=== PATIENT | male | born 1950 | race Caucasian/White ===

== ENCOUNTER → 2023-07-03 10:08 | Outpatient (REF) | payer MEDICARE, OTHER, SELFPAY ==
[2023-07-03 11:46] LABS: Hematocrit 46.6 % (39.0-52.0); Hemoglobin 15.5 g/dL (13.0-18.0); Mean Corp Hgb Conc. 33.3 g/dL (33.0-37.0); Mean Corpuscular Hgb 30.9 pg (27.0-31.0); Mean Corpuscular Volume 92.8 fL (80.0-94.0); Mean Platelet Volume 10.2 fL (7.4-10.4); Platelet Count 214 10^3/uL (130-400); Red Blood Cell Count 5.02 10^6/uL (4.70-6.10); Red Cell Dist. Width 13.2 % (11.5-14.5); White Blood Cell Count 8.4 10^3/uL (4.8-10.8)
[2023-07-03 12:01] LABS: ALT (SGPT) 53 U/L (0-50); AST (SGOT) 52 U/L (17-59); Albumin 3.8 g/dl (3.5-5.0); Alkaline Phosphatase 116 U/L (38-126); Blood Urea Nitrogen 13 mg/dl (9-20); Calcium 9.1 mg/dl (8.4-10.2); Carbon Dioxide 29 mmol/L (22-30); Chloride 103 mmol/L (98-107); Glucose 85 mg/dl (70-99); Potassium 4.2 mmol/L (3.5-5.1); Sodium 141 mmol/L (135-145); Total Bilirubin 0.6 mg/dl (0.2-1.3); Total Protein 6.8 g/dl (6.3-8.2); eGFR > 60.00
[2023-07-03 12:25] LABS: TSH 1.71 uIU/ml (0.47-4.68)
== END ==
LOC: OLABPATH 10:08
PROVIDERS: ATTENDING PHYSICIAN Internal Medicine
DX: R94.5 Abnormal results of liver function studies (principal); E03.9 Hypothyroidism, unspecified
CPT/HCPCS: 36415; 80053; 84443; 85027

== ENCOUNTER → 2023-07-24 13:50 | Outpatient (REF) | payer MEDICARE, OTHER, SELFPAY | LOC: HWRAD 13:50 | PROVIDERS: ATTENDING PHYSICIAN Internal Medicine | DX: J96.21 Acute and chronic respiratory failure with hypoxia (principal) | CPT/HCPCS: 71260; Q9967 ==

== ENCOUNTER 2023-07-26 08:41 | Inpatient (IN) | payer MEDICARE, OTHER, SELFPAY ==
[2023-07-25] VITALS (9 sets, daily range): BP systolic 107–169; BP diastolic 57–93; BMI 26.5; BMI 23.9
[2023-07-25 14:32] LABS: % Basophils 0.6 % (0-2); % Eosinophils 3.3 % (0-6); % Immature Granulocytes 0.3 % (0-0.5); % Lymphocytes 12.7 % (20.5-51.1); % Neutrophils 67.1 % (42.2-75.2); Absolute Eosinophils 0.2 10^3/uL (0-0.7); Absolute Lymphocytes 0.8 10^3/uL (1.2-3.4); Absolute Neutrophils 4.3 10^3/uL (1.4-6.5); Hematocrit 45.3 % (39.0-52.0); Hemoglobin 15.6 g/dL (13.0-18.0); Mean Corp Hgb Conc. 34.4 g/dL (33.0-37.0); Mean Corpuscular Hgb 31.3 pg (27.0-31.0); Mean Corpuscular Volume 90.8 fL (80.0-94.0); Mean Platelet Volume 9.4 fL (7.4-10.4); Nucleated Red Blood Cells % 0 % (-); Platelet Count 184 10^3/uL (130-400); Red Blood Cell Count 4.99 10^6/uL (4.70-6.10); Red Cell Dist. Width 13.3 % (11.5-14.5); White Blood Cell Count 6.4 10^3/uL (4.8-10.8)
[2023-07-25 14:42] LABS: Lactic Acid 1.6 mmol/L (0.7-2.0)
[2023-07-25 14:43] LABS: ALT (SGPT) 56 U/L (0-50); AST (SGOT) 54 U/L (17-59); Alkaline Phosphatase 106 U/L (38-126); Blood Urea Nitrogen 22 mg/dl (9-20); Calcium 9.2 mg/dl (8.4-10.2); Carbon Dioxide 28 mmol/L (22-30); Chloride 101 mmol/L (98-107); Estimated Creatinine Clearance 64 ml/min; Glucose 128 mg/dl (70-99); Potassium 4.2 mmol/L (3.5-5.1); Sodium 138 mmol/L (135-145); Total Bilirubin 0.8 mg/dl (0.2-1.3); eGFR > 60.00
[2023-07-25 14:54] LABS: COVID-19 Antigen Negative (Negative)
[2023-07-25] MEDS: DUONEB 3 ML INH ×3 (14:59→21:40)
[2023-07-25] MEDS: SOLU-MEDROL PF 60 MG IV (14:59)
--- NOTE | 2023-07-25 15:29 | ED.GENMED ---
History of Present Illness
General
Chief Complaint: Breathing Problem
Time Seen by Provider: 07/25/23 14:06
Travel History
Have you had any contact with someone who has COVID-19?: No
Do you have any symptoms of coronavirus? Fever > 100 degrees, chills, cough, shortness of breath, sore throat, loss of taste or smell, muscle aches, or headache?: No
History of Present Illness
History of Present Illness:
73 [facility] due to hypoxia. He has had a severe cough for the past several days, his primary physician at his facility ordered an outpatient CT of the chest with contrast yesterday which shows no acute disease. The patient was
noted to have saturations in the upper 80s prompting emergency department evaluation. He denies any chest pain or shortness of breath at rest. Arrives on 2 L nasal cannula. Denies any fevers or chills
Past History
Past History
ED Past Medical History: CAD, GERD, HTN, Hypercholesterolemia, [place], Renal failure, Hypothyroidism, Psychiatric (Patient states he has dementia) and Other (Dementia)
ED Past Surgical History: Bowel resection, Cardiac and Orthopedic
Social History
Tobacco: Former smoker
Alcohol: None
Drug: None
Personal:
Living: assisted living
Employment: Retired
Family History
Family History: Other (Noncontributory)
Review of Systems
Review of Systems
Allergies reviewed?: Yes
All Other Systems: ROS reviewed and negative except as documented in HPI and ROS
Phy Exam
Physical Exam
Physical Exam:
GEN: Well appearing, NAD, WDWN
Eyes: PERRLA, EOMs intact, no scleral icterus
HENT: NCAT, oral mucosa moist
Lungs:Normal respiratory effort. Prolonged expiratory phase with expiratory wheezes and rhonchi heard throughout
Cardiac: RRR, no M/R/G, no peripheral edema. Radial pulses 2+ bilat
Neuro: AO x 3
MSK: No gross deformity or ecchymosis.
Skin: No rashes, petechiae. Normal color, no pallor or jaundice.
Psych: Calm, cooperative, proper hygiene
Scores
Heart Failure Risk
Heart Failure Risk Score: Not Applicable
Course
Orders/Labs/Results
Orders:
Orders
07/25/23 14:05
Electrocardiogram (*1) Urgent
Reason for Study: Other
Other Reason for Exam: Possible Sepsis
Cardiac Monitoring- Treatment ONCE
IV Insert/Care/Rem.- Treatment PRN
O2 Therapy [RESP] Urgent
Titrate/Wean O2 to maintain O2 sat greater than (%): 93
Special Instructions: TO MAINTAIN CONTINUOUS O2 SATS > OR = 93%
Pulse Ox/cont/shift [RESP] Urgent
Quantity: 1
Special Instructions: CONTINUOUS
07/25/23 14:06
EKG- Treatment ONCE
CR Chest - 2 Views Urgent
Comment:
Reason For Exam: suspected infection
07/25/23 14:18
Complete Blood Count/With Diff Urgent
Comprehensive Metabolic Panel Urgent
Lactic Acid Q4H
Comment: ON ICE, CANCEL 2ND ORDER IF FIRST LACTIC ACID LEVEL <2
Blood Culture Q30M
RAINER Source: Blood/Venous
Specimen Description:
Comment: FROM 2 SEPARATE SITES
07/25/23 14:25
Ipratropium/Albuterol Sulfate [Duoneb] 3 ml .ROUTE .STK-MED ONE
07/25/23 14:28
COVID-19 Antigen Urgent
Source: Nasal Swab
Blood Culture Q30M
RAINER Source: Blood/Venous
Specimen Description:
Comment: FROM 2 SEPARATE SITES
07/25/23 14:51
Ipratropium/Albuterol Sulfate [Duoneb] 3 ml INH R NOW ONE
MethylPREDNISolone PF [Solu-Medrol Pf] 60 mg IV NOW STA
07/25/23 Dinner
Regular
At Your Request: Limited Participation
Does patient need a safe tray?: No
07/25/23 15:44
Ipratropium/Albuterol Sulfate [Duoneb] 3 ml INH R NOW ONE
07/25/23 16:23
Admit/Transfer Patient As Directed
Co-Sign Provider:
Level of Care: Observation services
Assign to:: Medical/Surgical
Physician / Group: laila
Diagnosis: copd exacerbation
Code Status As Directed
Resuscitation Status: Full Code
07/25/23 21:19
Acetaminophen [Tylenol] 650 mg PO Q4HPRN PRN
Guaifenesin [Mucinex] 600 mg PO Q12
Heparin 5,000 units SC Q12
Ipratropium/Albuterol Sulfate [Duoneb] 3 ml INH R Q4HPRN PRN
Ipratropium/Albuterol Sulfate [Duoneb] 3 ml INH R QID
Loperamide [Imodium] 4 mg PO Q6HPRN PRN
Mometasone [Elocon 0.1% Cream] 1 applic TOPICAL BIDPRN PRN
07/25/23 21:19
Activity As Directed
Activity Level: As Tolerated
Intake/ Output As Directed
Frequency: Per unit guidelines
Vital Signs As Directed
Frequency: Per unit guidelines
Copd Education [RESP] Routine
DX Deep Vein Thrombosis Video Routine
07/25/23 22:00
Atorvastatin [Lipitor] 80 mg PO HS
Donepezil HCl [Aricept] 10 mg PO HS
Quetiapine Fumarate [Seroquel] 100 mg PO HS
Trazodone [Desyrel] 50 mg PO HS
07/26/23 02:00
Dexamethasone Sod Phosphate [Decadron] 4 mg IV Q12H
07/26/23 06:00
Basic Metabolic Panel IN AM
Complete Blood Count/With Diff IN AM
Levothyroxine [Synthroid] 50 mcg PO DAILY @ 0600
07/26/23 08:00
Allopurinol [Zyloprim] 100 mg PO DAILY
Aspirin Chewable [Low Strength Aspirin] 81 mg PO DAILY
Escitalopram Oxalate [Lexapro] 20 mg PO DAILY
Lactobac/Bifidobac [Visbiome] 1 cap PO DAILY
Losartan [Cozaar] 50 mg PO DAILY
Pantoprazole [Protonix] 40 mg PO DAILY
Vitamin B Complex with C [B COMPLEX w/VITAMIN C] 2 caplet PO DAILY
Abnormal Lab Results
07/25/23
14:18
MCH 31.3 H pg
(27.0-31.0)
Absolute Lymphs (auto) 0.8 L 10^3/uL
(1.2-3.4)
Absolute Monos (auto) 1.0 H 10^3/uL
(0.1-0.6)
Lymphocytes % 12.7 L %
(20.5-51.1)
Monocytes % 16.0 H %
(1.7-9.3)
BUN 22 H mg/dl
(9-20)
Glucose 128 H mg/dl
(70-99)
ALT 56 H U/L
(0-50)
07/25/23 14:18
07/25/23 14:18
Vital Signs
Initial and Last Documented VS:
Initial Vital Signs
Temp Pulse Resp BP Pulse Ox
98.9 F 72 22 124/69 89
07/25/23 14:02 07/25/23 14:02 07/25/23 14:02 07/25/23 14:02 07/25/23 14:02
Last Documented Vital Signs
Temp Pulse Resp BP Pulse Ox
99.3 F 88 18 159/93 93
07/25/23 21:38 07/25/23 21:43 07/25/23 21:43 07/25/23 21:38 07/25/23 21:43
MDM/Problems Addressed
MDM/Problems Addressed:
Patient's hypoxia is likely multifactorial in the setting of asbestos related restrictive lung disease and potential underlying COPD given prior tobacco use. CT scan of the chest yesterday showed no acute cardiopulmonary disease, I was able to
review the studies and there does appear to be adequate opacification of the central pulmonary arteries suggesting PE is unlikely. Patient unfortunately remains hypoxic despite nebulizers and steroids. Will admit for further management, no
indication for antibiotic
Comment
Comment:
EKG independently interpreted by me shows normal sinus rhythm at a rate of [address] changes concerning for ischemia
*Critical Care Note
Total Time (30-74mins, 75-104mins- exclusive of procedures): Not Applicable
ED Attending Note
-
Portions of this chart may have been created with voice recognition software.� Occasional wrong word or��sound alike� substitutions may have occurred due to the inherent limitations of voice recognition software.
Discharge Plan
Departure
Patient Disposition: Admit
Date of Disposition: 07/25/23
Time of Disposition: 15:50
Presentation/result/management discussed w/ accepting MD/DO: Hospitalist
Discharge Problem:
Acute respiratory insufficiency, Wheezing
Interventions
Interventions:
*Risk Screen - Suicide Last Done: 07/25/23 14:37
*General Assessment Last Done: 07/25/23 14:37
*Neglect/Abuse Screening Last Done: 07/25/23 14:37
ED- Fall Risk Assessment Last Done: 07/25/23 14:38
*ED COVID-19 Vaccine History Last Done: 07/25/23 14:37
*Nursing Disposition Last Done: 07/25/23 21:14
ED- Cardiac Assessment Last Done: 07/25/23 14:37
ED- Pulmonary Assessment Last Done: 07/25/23 14:37
Discharge Date and Time
Discharge Date/Time: 07/25/23 21:15
--- NOTE | 2023-07-25 16:26 | HPS.HSE ---
Family Physician
-
Family Physician: Balwinder Kumari
Chief Complaint
-
shortness of breath, cough
History of Present Illness
73-year-old male with past medical history of CAD, hypertension, gout, hypothyroidism, GERD, dementia, hypercholesterolemia [facility]. Patient had increasing cough over the past day that he feels is
productive but unable to bring anything up. As per daughter he has had shortness of breath intermittently for the past year that sometimes occurs with exertion and associated with wheezing at times. Not much shortness of breath at rest. He denies
any shortness of breath when he lies flat although he does sleep with 2 pillows. He denies any fevers or chills. He denies any sore throat. He has chronic postnasal drip. He denies any lower extremity swelling.
His primary care physician ordered outpatient CT scan of the chest with contrast yesterday which showed no acute disease. Patient was noted to have oxygen saturations in the upper 80s so he was sent to the emergency room.
He had diarrhea yesterday but this is resolved.
He has a history of smoking more than 20 years ago. He denies alcohol use.
Medical History
Past Medical History
Past Medical History: Reports Other (CAD, hypertension, gout, hypothyroidism, GERD, dementia, hypercholesterolemia )
Past Surgical History: Reports None
Social History
Tobacco: Former Smoker
Alcohol: None
Drug: None
Family History
Family History: Not pertinent
Allergies / Home Medications
Allergies reflects when Allergies were last updated in [facility].
Home Medications with original date entered in [facility]
Allergy/Medication List:
Allergies
Allergy/AdvReac Type Severity Reaction Status Date / Time
No Known Allergies Allergy Verified 07/25/23 14:02
Home Medications
allopurinol 100 mg tablet 100 mg PO DAILY 07/20/13
losartan 50 mg tablet 50 mg PO DAILY 07/20/13
acetaminophen 325 mg tablet 650 mg PO Q4HPRN PRN mild pain/fever>100F 09/17/21
aspirin 81 mg chewable tablet 81 mg PO DAILY 09/17/21
donepezil 10 mg tablet 10 mg PO HS 09/17/21
quetiapine 100 mg tablet 100 mg PO HS 09/17/21
escitalopram oxalate 20 mg tablet (Lexapro) 20 mg PO DAILY 11/13/21
levothyroxine 50 mcg tablet (Synthroid) 50 mcg PO DAILY 11/13/21
trazodone 50 mg tablet 50 mg PO HS 11/13/21
Lactobac no.2-Bifidobac no.1-S. thermo 112.5 billion cell capsule (Visbiome) 1 cap PO DAILY 07/25/23
albuterol sulfate 90 mcg/actuation aerosol inhaler 2 puff inhalation R Q6HPRN PRN shortness of breath or wheezing 07/25/23
atorvastatin 80 mg tablet 80 mg PO HS 07/25/23
ceramides 1,3,6-II 1 applic topical BIDPRN PRN dryness 07/25/23
esomeprazole magnesium 20 mg capsule,delayed release 40 mg PO DAILY 07/25/23
eucalyptus-menthol oral mucosal lozenge 3.1 mg mucous membrane DAILYPRN PRN cough 07/25/23
loperamide 2 mg capsule 4 mg PO Q6HPRN PRN diarrhea 07/25/23
mometasone 0.1 % topical cream 1 applic topical BIDPRN PRN apply to psoriasis 07/25/23
vitamin B complex 2 cap PO DAILY 07/25/23
Review of Systems
-
History Source: Patient
A 12 point ROS was completed and negative except as noted: Yes
Constitutional: Reports No Symptoms
EENT: Reports No Symptoms
Respiratory: Reports See HPI
Cardiac: Reports No Symptoms
Abdomen/GI: Reports No Symptoms
: Reports No Symptoms
Musculoskeletal: Reports No Symptoms
Skin: Reports No Symptoms
Neurological: Reports No Symptoms
Endocrine: Reports No Symptoms
Hematologic/Lymphatic: Reports No Symptoms
Psych: Reports No Symptoms
Physical Exam
Vital Signs
Vital Signs
Temp Pulse Resp BP Pulse Ox
98.9 F 74 17 169/58 95
07/25/23 14:02 07/25/23 16:15 07/25/23 16:15 07/25/23 16:00 07/25/23 16:15
Physical Exam
General: Well Developed, Well Nourished and No Apparent Distress
HEENT: NormoCephalic, Moist mucous membranes and Atraumatic
Respiratory: Wheezes
Cardiac: S1/S2 and Regular Rhythm; No Murmur or Rub
GI: Soft, Non Tender, Non Distended and Normal Bowel Sounds; No Organomegaly
Rectal: Deferred by Provider
Musculoskeletal: No Clubbing, No Cyanosis and No Edema
Skin: No Rash
Neuro: Nonfocal/grossly intact
Laboratory Results
-
07/25/23 14:18
07/25/23 14:18
Laboratory Results
Lactic Acid Cancelled 07/25/23 18:15
Total Bilirubin 0.8 mg/dl (0.2-1.3) 07/25/23 14:18
AST 54 U/L (17-59) 07/25/23 14:18
ALT 56 U/L (0-50) H 07/25/23 14:18
Alkaline Phosphatase 106 U/L (38-126) 07/25/23 14:18
Data Reviewed
-
Lab Data: Labs Reviewed by me
Old Records: Reviewed
Impression/Plan
-
IMPRESSION:
PLAN:
# Likely undiagnosed COPD exacerbation
# Possible underlying asbestosis
-Significant bilateral wheezing
-Requiring 2 L
-Chest x-ray unremarkable
-CT chest from yesterday shows no acute findings, scattered calcified noncalcified pleural plaques which was reported asbestos exposure, small amount of chronic appearing scarring within the lingula/anterior left lower lobe
-COVID negative
-Blood cultures pending
-DuoNebs every 6 hours
-Dexamethasone 4 mg every 12
-Guaifenesin
-Outpatient pulmonary function testing
Coronary artery disease
-Continue aspirin
Essential hypertension
-Continue losartan
Gout
-Continue allopurinol
Hypothyroidism
-Continue levothyroxine
GERD
-Continue esomeprazole
Dementia/depression
-Continue donepezil
-Continue Lexapro, Seroquel
-Continue trazodone
Hypercholesterolemia
-Continue statin
Full code
DVT prophylaxis�heparin
Regular diet
--- NOTE | 2023-07-25 21:38 | PTCARENOTE ---
Pt arrived onto floor @2137. Pt has stable vital signs, and walked into room with assistance. Pt with no complaints of pain at this time. Pulse ox reads 93% on 2 L of O2. Pt oriented to room and call dowling; will continue to monitor.
[2023-07-25] MEDS: HEPARIN 5000 UNITS SC (22:30)
[2023-07-25] MEDS: MUCINEX 600 MG PO (22:31)
[2023-07-25] MEDS: ARICEPT 10 MG PO (22:31)
[2023-07-25] MEDS: LIPITOR 80 MG PO (22:31)
[2023-07-25] MEDS: DESYREL 50 MG PO (22:31)
[2023-07-25] MEDS: SEROQUEL 100 MG PO (22:31)
[2023-07-26] MEDS: DECADRON 4 MG IV ×2 (01:33→14:59)
[2023-07-26] MEDS: SYNTHROID 50 MCG PO (05:28)
[2023-07-26] MEDS: DUONEB 3 ML INH ×4 (07:20→19:34)
[2023-07-26 07:55] VITALS: BP 115/78
[2023-07-26 08:28] LABS: % Basophils 0.1 % (0-2); % Immature Granulocytes 1.2 % (0-0.5); % Lymphocytes 7.2 % (20.5-51.1); % Monocytes 3.8 % (1.7-9.3); % Neutrophils 87.7 % (42.2-75.2); Absolute Immature Granulocytes 0.1 10^3/uL (0-0.05); Absolute Lymphocytes 0.7 10^3/uL (1.2-3.4); Absolute Monocytes 0.4 10^3/uL (0.1-0.6); Absolute Neutrophils 8.1 10^3/uL (1.4-6.5); Hematocrit 44.5 % (39.0-52.0); Hemoglobin 14.9 g/dL (13.0-18.0); Mean Corp Hgb Conc. 33.5 g/dL (33.0-37.0); Mean Corpuscular Hgb 30.7 pg (27.0-31.0); Mean Corpuscular Volume 91.6 fL (80.0-94.0); Mean Platelet Volume 9.5 fL (7.4-10.4); Nucleated Red Blood Cells % 0 % (-); Platelet Count 174 10^3/uL (130-400); Red Blood Cell Count 4.86 10^6/uL (4.70-6.10); Red Cell Dist. Width 12.9 % (11.5-14.5); White Blood Cell Count 9.2 10^3/uL (4.8-10.8)
[2023-07-26 09:18] LABS: Blood Urea Nitrogen 18 mg/dl (9-20); Carbon Dioxide 26 mmol/L (22-30); Chloride 106 mmol/L (98-107); Estimated Creatinine Clearance 103 ml/min; Glucose 159 mg/dl (70-99); Sodium 139 mmol/L (135-145); eGFR > 60.00
[2023-07-26] MEDS: VISBIOME 1 CAP PO (10:05)
[2023-07-26] MEDS: PROTONIX 40 MG PO (10:05)
[2023-07-26] MEDS: LEXAPRO 20 MG PO (10:05)
[2023-07-26] MEDS: MUCINEX 600 MG PO ×2 (10:05→20:51)
[2023-07-26] MEDS: COZAAR 50 MG PO (10:05)
[2023-07-26] MEDS: ZYLOPRIM 100 MG PO (10:05)
[2023-07-26] MEDS: LOW STRENGTH ASPIRIN 81 MG PO (10:05)
[2023-07-26] MEDS: B COMPLEX w/VITAMIN C 2 CAPLET PO (10:05)
[2023-07-26] MEDS: HEPARIN 5000 UNITS SC ×2 (10:06→20:51)
--- NOTE | 2023-07-26 13:46 | W.PN.HOSP.TC ---
Today's Communication/Plan
-
Wean steroids
nebs
Wean O2
If stable will [facility] to [facility] tomorrow
Assessment / Plan
Assessment / Plan
Shortness of breath and cough
72-year-old male presented from [facility] facility secondary to hypoxia. CT of the chest done as outpatient did not show any acute changes but his saturations were in the 80s therefore he was sent over.
CT chest 07/24/2023-no acute findings. Scattered calcified and noncalcified pleural plaques bilaterally suspicious for asbestos exposure. Small amount of chronic appearing scarring in the lingula and the anterior left lower lobe. Coronary
calcifications.
CVS: S1-S2 normal
Chest: CTA B/L today, No wheezes.
Abdomen: Soft, NT / Bowel sounds present
Extremities: No edema, normal pulses
IT TECHNICAL SUPPORT SPECIALIST: Dementia
# Acute hypoxic respiratory insufficiency
Likely secondary to COPD exacerbation
Underlying asbestosis
COVID test negative
Blood cultures pending
Currently on 2 L of oxygen- wean off as tolerated.
Nebulizer treatments, Decadron, mucolytic's
Trop neg
# Coronary disease-continue aspirin, statin, losartan
# Essential hypertension-continue losartan
# Gout-Continue allopurinol
# Hypothyroidism-Continue levothyroxine
# GERD-Continue PPI
# Dementia/depression
Continue donepezil,Lexapro, Seroquel,Trazodone
# Hyperlipidemia-continue statin
# Diverticulosis
# History of hepatitis C
# Gout-allopurinol
# Ambulatory dysfunction
# Ex-smoker
# Full code
# DVT prophylaxis�heparin
D/.W RN
D/W Case management
D/W daughter at bed side
Anticipated Discharge: Within 24 hours
Subjective/Interval History
-
Date of Service: July 26, 2023
Objective Data
-
Labs:
Laboratory Results
07/26/23
07:56
WBC 9.2
Hgb 14.9
Hct 44.5
Plt Count 174
Sodium 139
Potassium 4.0
Chloride 106
Carbon Dioxide 26
BUN 18
Creatinine 0.6 L
Glucose 159 H
Calcium 9.0
Vital Signs:
Vital Signs
Temp Pulse Resp BP Pulse Ox
98.0 F 81 18 115/78 93
07/26/23 07:55 07/26/23 11:27 07/26/23 11:27 07/26/23 07:55 07/26/23 11:27
I&O
07/25/23 07/26/23 07/27/23
06:59 06:59 06:59
Intake Total 480 / 480
Balance 480 / 480
[2023-07-26 14:50] LABS: Troponin I < 0.012 ng/ml
[2023-07-26 15:03] VITALS: BP 118/60; PULSE 83; O2SAT 90
[2023-07-26 15:30] VITALS: BP 155/97
--- NOTE | 2023-07-26 16:11 | CM ---
Spoke via phone with patient's daughter, Mily Rodriguez # [phone]; initial assessment completed
Pharmacy verified: [facility], [address] [place] [address], [place] #[phone]
Per daughter patient lives in Assisted Living at [facility] since 09/2022; bathroom has only a toilet and sink. Patient has Dementia
PLOF: patient ambulates with a rolling walker; requires assistance with personal care; can toilet self; eats meals in the dining room. Receives PT/OT at facility
Ambulance transportation will need to be provided back to facility
SNF utilization in the past: yes
Plan: Return to NH @ [facility] [place] when medically stable
Per Attending, patient may be stable for discharge tomorrow, 07/26.
[2023-07-26] MEDS: MIRALAX 17 GRAMS PO (18:38)
[2023-07-26] MEDS: DESYREL 50 MG PO (20:51)
[2023-07-26] MEDS: COLACE 100 MG PO (20:51)
[2023-07-26] MEDS: ARICEPT 10 MG PO (20:51)
[2023-07-26] MEDS: LIPITOR 80 MG PO (20:51)
[2023-07-26] MEDS: SEROQUEL 100 MG PO (20:51)
[2023-07-26] MEDS: SENOKOT 17.1999999999999993 MG PO (20:51)
[2023-07-26 23:09] VITALS: BP 153/93
[2023-07-27] MEDS: DECADRON 2 MG IV ×2 (02:10→13:15)
[2023-07-27] MEDS: SYNTHROID 50 MCG PO (05:31)
[2023-07-27 07:50] VITALS: BP 141/80
[2023-07-27] MEDS: MIRALAX 17 GRAMS PO (07:58)
[2023-07-27] MEDS: MUCINEX 600 MG PO ×2 (07:58→19:53)
[2023-07-27] MEDS: SENOKOT 17.1999999999999993 MG PO ×2 (07:58→19:53)
[2023-07-27] MEDS: B COMPLEX w/VITAMIN C 2 CAPLET PO (07:58)
[2023-07-27] MEDS: LOW STRENGTH ASPIRIN 81 MG PO (07:58)
[2023-07-27] MEDS: COZAAR 50 MG PO (07:58)
[2023-07-27] MEDS: ZYLOPRIM 100 MG PO (07:58)
[2023-07-27] MEDS: LEXAPRO 20 MG PO (07:58)
[2023-07-27] MEDS: VISBIOME 1 CAP PO (07:58)
[2023-07-27] MEDS: COLACE 100 MG PO ×2 (07:59→19:53)
[2023-07-27] MEDS: PROTONIX 40 MG PO (07:59)
[2023-07-27] MEDS: HEPARIN 5000 UNITS SC ×2 (07:59→19:53)
[2023-07-27] MEDS: DUONEB 3 ML INH ×4 (08:14→19:38)
[2023-07-27 10:56] VITALS: BP 168/98; PULSE 93; O2SAT 94
--- NOTE | 2023-07-27 14:25 | CM ---
Per nursing patient for CXR, not keeping food down, coughing.
Spoke with [facility], if patient needs to come back with therapy, will need to be reviewed with nurse prior to return.
PT recommending HC, OT recommending skilled, speech (P).
Plan: back to [facility] when stable
Report# [phone]
--- NOTE | 2023-07-27 14:33 | W.PN.HOSP.TC ---
Today's Communication/Plan
-
Continue Decadron
CXR
Speech re eval.
Assessment / Plan
Assessment / Plan
Shortness of breath and cough
72-year-old male presented from senior living facility secondary to hypoxia. CT of the chest done as outpatient did not show any acute changes but his saturations were in the 80s therefore he was sent over.
CT chest 07/24/2023-no acute findings. Scattered calcified and noncalcified pleural plaques bilaterally suspicious for asbestos exposure. Small amount of chronic appearing scarring in the lingula and the anterior left lower lobe. Coronary
calcifications.
Difficulty eating. Able to drink. has been vomiting small amounts since dinner yesterday
CVS: S1-S2 normal
Chest: Coarse BS and Rhonchi today
Abdomen: Soft, NT / Bowel sounds present
Extremities: No edema, normal pulses
SKEIN YARN DRIER: Dementia
# Acute hypoxic respiratory insufficiency
Likely secondary to COPD exacerbation
Underlying asbestosis
COVID test negative
Blood cultures pending
Currently on 2 L of oxygen- wean as tolerated.
Nebulizer treatments, Decadron, mucolytic's
Trop neg
Speech to re evaluate
He is able to drink water with out any trouble.
Check CXR
# Coronary disease-continue aspirin, statin, losartan
# Essential hypertension-continue losartan
# Gout-Continue allopurinol
# Hypothyroidism-Continue levothyroxine
# GERD-Continue PPI
# Dementia/depression
Continue donepezil,Lexapro, Seroquel,Trazodone
# Hyperlipidemia-continue statin
# Diverticulosis
# History of hepatitis C
# Gout-allopurinol
# Ambulatory dysfunction
# Ex-smoker
# Full code
# DVT prophylaxis�heparin
D/.W RN
D/W Case management
Anticipated Discharge: 24 - 48 hours
Subjective/Interval History
-
Date of Service: July 27, 2023
Objective Data
-
Labs:
Laboratory Results
07/27/23
14:33
WBC Pending
Hgb Pending
Hct Pending
Plt Count Pending
Sodium Pending
Potassium Pending
Chloride Pending
Carbon Dioxide Pending
BUN Pending
Creatinine Pending
Glucose Pending
Calcium Pending
Vital Signs:
Vital Signs
Temp Pulse Resp BP Pulse Ox
97.9 F 93 16 141/80 94
07/27/23 07:50 07/27/23 10:50 07/27/23 10:50 07/27/23 07:50 07/27/23 10:50
I&O
07/26/23 07/27/23 07/28/23
06:59 06:59 06:59
Intake Total 480 / 480 860 / 860
Balance 480 / 480 860 / 860
[2023-07-27 15:05] LABS: Hematocrit 42.8 % (39.0-52.0); Hemoglobin 15.2 g/dL (13.0-18.0); Mean Corp Hgb Conc. 35.5 g/dL (33.0-37.0); Mean Corpuscular Hgb 31.4 pg (27.0-31.0); Mean Corpuscular Volume 88.4 fL (80.0-94.0); Mean Platelet Volume 9.7 fL (7.4-10.4); Platelet Count 201 10^3/uL (130-400); Red Blood Cell Count 4.84 10^6/uL (4.70-6.10); Red Cell Dist. Width 13.3 % (11.5-14.5); White Blood Cell Count 17.4 10^3/uL (4.8-10.8)
--- NOTE | 2023-07-27 15:14 | PTOTSP ---
Speech Language Pathology
Clinical Swallow Evaluation
73M admitted for SOB and cough 2/2 COPD exacerbation p/w a mildly impaired oropharyngeal swallow. No overt s/s of aspiration or penetration observed during speech CSE; however, RN notes productive cough post-PO. Aspiration risk is increased 2/2
multiple comorbidities including dementia, gout, hypothyroidism, and GERD.
Recommend:
1. Regular solids, thin liquids
2. Medications as tolerated
3. Aspiration and reflux precautions: small bites, slow rate, alternate bites and sips as needed, upright 30 minutes post meal
4. GREENSTONE POLISHER OPERATOR service to follow up and assess diet level tolerance, as well as provide dysphagia tx PRN
[2023-07-27 15:20] VITALS: BP 130/68
[2023-07-27 15:32] LABS: Blood Urea Nitrogen 26 mg/dl (9-20); Calcium 9.4 mg/dl (8.4-10.2); Carbon Dioxide 24 mmol/L (22-30); Chloride 104 mmol/L (98-107); Estimated Creatinine Clearance 103 ml/min; Glucose 122 mg/dl (70-99); Potassium 4.2 mmol/L (3.5-5.1); Sodium 139 mmol/L (135-145); eGFR > 60.00
[2023-07-27] MEDS: SEROQUEL 100 MG PO (21:02)
[2023-07-27] MEDS: ARICEPT 10 MG PO (21:02)
[2023-07-27] MEDS: DESYREL 50 MG PO (21:03)
[2023-07-27] MEDS: LIPITOR 80 MG PO (21:03)
[2023-07-27 23:12] VITALS: BP 121/72
[2023-07-28] MEDS: DECADRON 2 MG IV ×2 (01:19→13:59)
[2023-07-28] MEDS: SYNTHROID 50 MCG PO (05:35)
[2023-07-28 07:00] VITALS: BP 169/88
[2023-07-28] MEDS: DUONEB 3 ML INH ×4 (07:51→19:47)
[2023-07-28] MEDS: MIRALAX 17 GRAMS PO (07:56)
[2023-07-28] MEDS: SENOKOT 17.1999999999999993 MG PO (07:57)
[2023-07-28] MEDS: COLACE 100 MG PO (07:58)
[2023-07-28] MEDS: VISBIOME 1 CAP PO (07:58)
[2023-07-28] MEDS: B COMPLEX w/VITAMIN C 2 CAPLET PO (07:59)
[2023-07-28] MEDS: PROTONIX 40 MG PO (07:59)
[2023-07-28] MEDS: MUCINEX 600 MG PO ×2 (07:59→20:58)
[2023-07-28] MEDS: ZYLOPRIM 100 MG PO (08:01)
[2023-07-28] MEDS: LOW STRENGTH ASPIRIN 81 MG PO (08:01)
[2023-07-28] MEDS: COZAAR 50 MG PO (08:01)
[2023-07-28] MEDS: LEXAPRO 20 MG PO (08:01)
[2023-07-28] MEDS: HEPARIN 5000 UNITS SC ×2 (08:02→20:57)
--- NOTE | 2023-07-28 09:57 | PTCARENOTE ---
Assumed care of pt from previous nurse. Pt denies pain. Pt is on 3L's on sating 94%, pt with b/l crackles to lung bases, allison. Pt call dowling is within reach, pt does not ring lee. will cont to monitor.
--- NOTE | 2023-07-28 10:46 | W.PN.HOSP.TC ---
Today's Communication/Plan
-
wean O2 and steroids
follow WBC count
hopeful d/c in a few days
Assessment / Plan
Assessment / Plan
72-year-old male presented from longterm facility secondary to hypoxia. CT of the chest done as outpatient did not show any acute changes but his saturations were in the 80s therefore he was sent over. CT chest 07/24/2023-no acute findings.
Scattered calcified and noncalcified pleural plaques bilaterally suspicious for asbestos exposure. Small amount of chronic appearing scarring in the lingula and the anterior left lower lobe. Coronary calcifications. Difficulty eating. Able to
drink. has been vomiting small amounts since dinner yesterday
Acute hypoxic respiratory insufficiency--Likely secondary to COPD exacerbation--no signs of aspiration or pna by speech or imaging--underlying asbestosis--COVID test negative/cultures negative--on 3L O2--nebs, steroids (leukocytosis likely due to
steroids)
Coronary disease-continue aspirin, statin, losartan
Essential hypertension-continue losartan
Gout-Continue allopurinol
Hypothyroidism-Continue levothyroxine
GERD-Continue PPI
Dementia/depression--Continue donepezil,Lexapro, Seroquel,Trazodone
Hyperlipidemia-continue statin
Diverticulosis
History of hepatitis C
Ambulatory dysfunction
Full code
DVT prophylaxis�heparin
Anticipated Discharge: > 48 hours
Subjective/Interval History
-
Date of Service: July 28, 2023
pt says he is doing better--nursing reports pt coughing--resp increased O2
Objective Data
-
Vital Signs:
max temp for 24 hours
07/27/23
15:20
Temp 98.0 F
Vital Signs
Temp Pulse Resp BP Pulse Ox
97.7 F 64 16 169/88 94
07/28/23 07:00 07/28/23 08:01 07/28/23 07:55 07/28/23 08:01 07/28/23 07:55
I&O
07/27/23 07/28/23 07/29/23
06:59 06:59 06:59
Intake Total 860 / 860 120 / 120
Output Total 500 / 500
Balance 860 / 860 -380 / -380
Review of Systems
-
All other systems: Reviewed and negative
Physical Exam
-
General: Well Developed, Well Nourished and No Apparent Distress
HEENT: Normocephalic, Atraumatic and Oxygen
Respiratory: Wheezes (faint wheezes otherwise clear)
Cardiac: Regular Rhythm and S1/S2; Negative Murmur
GI: Soft, Nontender, Nondistended and Normal Bowel Sounds
Musculoskeletal: No Clubbing, No Cyanosis and No Edema
Neuro: Awake
Psych: Calm
--- NOTE | 2023-07-28 13:50 | PTOTSP ---
Speech Language Pathology
Swallow Follow Up
73M admitted for COPD exacerbation, seen for dysphagia follow-up this date, continues to p/w a mildly impaired oropharyngeal swallow. No new concerns w/ diet per RN report, pt appears to be tolerating a regular textured diet and thin liquids. Oral
phase consisting of slow, but functional mastication. Mild oral residue cleared with verbal cues for thin liquid wash. Takes large bites. Pharyngeal phase w/ no overt s/s of aspiration or penetration demonstrated. No new or current concerns for
aspiration or aspiration PNA. TANKER DRIVER service to sign off. Please reconsult if s/s concerning for aspiration or aspiration PNA arise (i.e. coughing with food or drink, abnormal CXR).
*Aspiration risk is increased 2/2 multiple comorbidities including COPD, dementia, gout, hypothyroidism, and GERD.
Recommend:
1. Regular solids, thin liquids
2. Medications as tolerated
3. Aspiration and reflux precautions: small bites, slow rate, alternate bites and sips as needed, upright 30 minutes post meal
4. TANKER DRIVER service to sign off. Please reconsult if s/s concerning for aspiration or aspiration PNA arise (i.e. coughing with food or drink, abnormal CXR).
[2023-07-28 15:00] VITALS: BP 134/65
[2023-07-28 19:51] VITALS: BP 160/72
[2023-07-28] MEDS: DESYREL 50 MG PO (20:58)
[2023-07-28] MEDS: SEROQUEL 100 MG PO (20:58)
[2023-07-28] MEDS: SENOKOT PO (20:58)
[2023-07-28] MEDS: COLACE PO (20:58)
[2023-07-28] MEDS: ARICEPT 10 MG PO (20:58)
[2023-07-28] MEDS: LIPITOR 80 MG PO (20:58)
[2023-07-28 23:00] VITALS: BP 147/81
[2023-07-29] MEDS: DECADRON 2 MG IV ×2 (01:42→13:05)
[2023-07-29] MEDS: SYNTHROID 50 MCG PO (05:00)
[2023-07-29] MEDS: DUONEB 3 ML INH ×4 (06:07→20:23)
[2023-07-29 07:15] VITALS: BP 145/74
[2023-07-29] MEDS: B COMPLEX w/VITAMIN C 2 CAPLET PO (08:30)
[2023-07-29] MEDS: MIRALAX 17 GRAMS PO (08:30)
[2023-07-29] MEDS: COLACE 100 MG PO ×2 (08:30→19:56)
[2023-07-29] MEDS: HEPARIN 5000 UNITS SC ×2 (08:30→19:56)
[2023-07-29] MEDS: PROTONIX 40 MG PO (08:31)
[2023-07-29] MEDS: SENOKOT 17.1999999999999993 MG PO ×2 (08:31→19:56)
[2023-07-29] MEDS: MUCINEX 600 MG PO ×2 (08:31→19:56)
[2023-07-29] MEDS: LEXAPRO 20 MG PO (08:31)
[2023-07-29] MEDS: VISBIOME 1 CAP PO (08:31)
[2023-07-29] MEDS: COZAAR 50 MG PO (08:31)
[2023-07-29] MEDS: LOW STRENGTH ASPIRIN 81 MG PO (08:31)
[2023-07-29] MEDS: ZYLOPRIM 100 MG PO (08:31)
--- NOTE | 2023-07-29 09:25 | PTCARENOTE ---
Addendum entered by Deloris Moreno RN 07/29/23 15:02:
07/28- Restraints removed at 1400 checks d/t no longer needing them. S/P administration of Haldol IV PRN, patient displays calmer cooperative behavior. He is still AAOX1 with incoherent conversation, but no apparent visual hallucinations or paranoia
at this time. Patient is calm, not combative. Able to move him into chair with OT. Patient is now on RA, POX=92%, HR=84 at rest. Will Continue to monitor.
Original Note:
07/28- Patient has Medsitter in room- he attempted to stand up without assistance, took O2 off, unsteady on feet. AAOX1, non-redirectable, paranoid, having visual hallucinations of scattered images and is confused. Attempted redirecting, calming
attitude first, but patient became physically combative, stating, 'get away from me! Get of here!' He attempted to punch this RN twice. PCT came in and helped assist patient back to bed, during which he attempted to kick both of us multiple times.
During this, patient is tachypneic, shallow breathing, will not keep O2 on; current POX=87%, HD=816. Obtained order for Non-violent restraints d/t physical combativeness and taking off O2. O3 reapplied, and secured restraints with neurovascular
checks [id number]. POX=94% on 2L O2; HR=92. Continue to monitor. See Restraints Intervention.
[2023-07-29 09:38] LABS: Hematocrit 45.6 % (39.0-52.0); Hemoglobin 15.2 g/dL (13.0-18.0); Mean Corp Hgb Conc. 33.3 g/dL (33.0-37.0); Mean Corpuscular Volume 92.9 fL (80.0-94.0); Platelet Count 203 10^3/uL (130-400); Red Blood Cell Count 4.91 10^6/uL (4.70-6.10); Red Cell Dist. Width 13.2 % (11.5-14.5)
[2023-07-29 10:14] LABS: ALT (SGPT) 73 U/L (0-50); AST (SGOT) 66 U/L (17-59); Albumin 3.9 g/dl (3.5-5.0); Alkaline Phosphatase 97 U/L (38-126); Blood Urea Nitrogen 23 mg/dl (9-20); Calcium 9.3 mg/dl (8.4-10.2); Carbon Dioxide 26 mmol/L (22-30); Chloride 102 mmol/L (98-107); Estimated Creatinine Clearance 88 ml/min; Glucose 100 mg/dl (70-99); Magnesium 2.4 mg/dl (1.6-2.3); Potassium 3.6 mmol/L (3.5-5.1); Sodium 139 mmol/L (135-145); Total Bilirubin 0.9 mg/dl (0.2-1.3); eGFR > 60.00
[2023-07-29] MEDS: HALDOL 1 MG IV (10:19)
[2023-07-29 14:38] VITALS: PULSE 70; O2SAT 96
[2023-07-29 15:00] VITALS: BP 136/89
--- NOTE | 2023-07-29 15:21 | W.PN.HOSP.TC ---
Today's Communication/Plan
-
Keep patient off of restraints and redirect
He is pleasant at this point
Will request psych Evaluation to adjust medicines
Hopefully changing steroids to p.o. will also help
Hopefully we can send him to rehab tomorrow
Assessment / Plan
Assessment / Plan
72-year-old male presented from senior care facility secondary to hypoxia. CT of the chest done as outpatient did not show any acute changes but his saturations were in the 80s therefore he was sent over. CT chest 07/24/2023-no acute findings.
Scattered calcified and noncalcified pleural plaques bilaterally suspicious for asbestos exposure. Small amount of chronic appearing scarring in the lingula and the anterior left lower lobe. Coronary calcifications. Difficulty eating. Able to
drink. has been vomiting small amounts since dinner yesterday
CVS: S1-S2 normal
Chest: CTA B/L
Abdomen: Soft, NT / Bowel sounds present
Extremities: No edema, normal pulses
HAND PACKAGER: Non focal exam , pleasant and cooperative
#Acute hypoxic respiratory insufficiency-Likely secondary to COPD exacerbation-no signs of aspiration or pneumonia by speech or imaging--underlying asbestosis--COVID test negative/cultures negative--on 3L O2--nebs, steroids (leukocytosis likely due
to steroids)
#Coronary disease-continue aspirin, statin, losartan
#Essential hypertension-continue losartan
#Gout-Continue allopurinol
#Hypothyroidism-Continue levothyroxine
#GERD-Continue PPI
#Dementia/depression--Continue donepezil,Lexapro, Seroquel,Trazodone
#Hyperlipidemia-continue statin
#Diverticulosis
#History of hepatitis C
#Ambulatory dysfunction
#Full code
#DVT prophylaxis�SC heparin
off restraints now
Pleasant.
Anticipated Discharge: Within 24 hours
Subjective/Interval History
-
Date of Service: July 29, 2023
Objective Data
-
Labs:
Laboratory Results
07/29/23
08:50
WBC 10.0
Hgb 15.2
Hct 45.6
Plt Count 203
Sodium 139
Potassium 3.6
Chloride 102
Carbon Dioxide 26
BUN 23 H
Creatinine 0.7
Glucose 100 H
Calcium 9.3
Total Bilirubin 0.9
AST 66 H
ALT 73 H
Alkaline Phosphatase 97
Vital Signs:
Vital Signs
Temp Pulse Resp BP Pulse Ox
97.6 F 70 16 145/74 94
07/29/23 07:15 07/29/23 11:20 07/29/23 11:20 07/29/23 07:15 07/29/23 11:20
I&O
07/28/23 07/29/23 07/30/23
06:59 06:59 06:59
Intake Total 120 / 120 480 / 480
Output Total 500 / 500 200 / 200
Balance -380 / -380 280 / 280
[2023-07-29] MEDS: LIPITOR 80 MG PO (19:57)
[2023-07-29] MEDS: SEROQUEL 100 MG PO (19:57)
[2023-07-29] MEDS: DESYREL 50 MG PO (19:57)
[2023-07-29] MEDS: ARICEPT 10 MG PO (19:58)
[2023-07-29 23:00] VITALS: BP 120/65
[2023-07-30] MEDS: SYNTHROID 50 MCG PO (05:42)
[2023-07-30] MEDS: DUONEB 3 ML INH ×4 (07:37→19:22)
[2023-07-30] MEDS: DELTASONE 40 MG PO (07:58)
[2023-07-30] MEDS: SENOKOT 17.1999999999999993 MG PO ×2 (07:58→19:43)
[2023-07-30] MEDS: COZAAR 50 MG PO (07:58)
[2023-07-30] MEDS: MUCINEX 600 MG PO ×2 (07:58→19:43)
[2023-07-30] MEDS: VISBIOME 1 CAP PO (07:58)
[2023-07-30] MEDS: MIRALAX 17 GRAMS PO (07:58)
[2023-07-30] MEDS: PROTONIX 40 MG PO (07:59)
[2023-07-30] MEDS: ZYLOPRIM 100 MG PO (07:59)
[2023-07-30] MEDS: LEXAPRO 20 MG PO (07:59)
[2023-07-30 08:00] VITALS: BP 159/77
[2023-07-30] MEDS: COLACE 100 MG PO ×2 (08:00→19:43)
[2023-07-30] MEDS: LOW STRENGTH ASPIRIN 81 MG PO (08:00)
[2023-07-30] MEDS: HEPARIN 5000 UNITS SC ×2 (08:00→19:43)
[2023-07-30] MEDS: B COMPLEX w/VITAMIN C 2 CAPLET PO (08:00)
[2023-07-30 09:50] LABS: ALT (SGPT) 142 U/L (0-50); AST (SGOT) 108 U/L (17-59); Alkaline Phosphatase 94 U/L (38-126); Blood Urea Nitrogen 29 mg/dl (9-20); Calcium 9.4 mg/dl (8.4-10.2); Carbon Dioxide 27 mmol/L (22-30); Chloride 102 mmol/L (98-107); Estimated Creatinine Clearance 88 ml/min; Glucose 75 mg/dl (70-99); Potassium 3.9 mmol/L (3.5-5.1); Sodium 139 mmol/L (135-145); Total Bilirubin 0.9 mg/dl (0.2-1.3); Total Protein 7.2 g/dl (6.3-8.2); eGFR > 60.00
--- NOTE | 2023-07-30 11:57 | W.PN.HOSP.TC ---
Today's Communication/Plan
-
Add on CPK
Hepatitis panel
[facility] can only do uss tomorrow as he ate late breakfast
LFTs in am
Wean off O2
Assessment / Plan
Assessment / Plan
72-year-old male presented from retirement facility secondary to hypoxia. CT of the chest done as outpatient did not show any acute changes but his saturations were in the 80s therefore he was sent over. CT chest 07/24/2023-no acute findings.
Scattered calcified and noncalcified pleural plaques bilaterally suspicious for asbestos exposure. Small amount of chronic appearing scarring in the lingula and the anterior left lower lobe. Coronary calcifications. Difficulty eating. Able to
drink. has been vomiting small amounts since dinner yesterday
CVS: S1-S2 normal
Chest: CTA B/L
Abdomen: Soft, No RUQ tenderness, Bowel sounds present
Extremities: No edema, normal pulses
CLOD PULLER: Non focal exam , pleasant and cooperative
# Elevated LFT-trending up. Check hepatitis panel. As below has a H/O Hep C per the chart but daughter is not sure if positive or what was done in the past.
Patient's daughter stated that he has had issues with LFTs up and down. And she also remembers that when he was at [facility] he had gallbladder ultrasound.
Will get a CPK level
USS abdomen
Rpt KFT in am
Hepatitis panel first
No RUQ tenderness
#Acute hypoxic respiratory insufficiency-Likely secondary to COPD exacerbation-no signs of aspiration or pneumonia by speech or imaging--underlying asbestosis--COVID test negative/cultures negative----nebs, steroids (leukocytosis likely due to
steroids)
Currently on 2 L of oxygen-wean off and check home oxygen evaluation
Steroids p.o. now.
#Coronary disease-continue aspirin, statin, losartan
#Essential hypertension-continue losartan
#Gout-Continue allopurinol
#Hypothyroidism-Continue levothyroxine
#GERD-Continue PPI
#Dementia/depression--Continue donepezil,Lexapro, Seroquel,Trazodone
#Hyperlipidemia-Hold statin
#Diverticulosis
#History of hepatitis C- Daughter doesn't know details
#Ambulatory dysfunction
#Full code
#DVT prophylaxis�SC heparin
Discussed with case management
Discussed with nursing
Discussed with patient's daughter on the phone in detail.
time over 50 min
Anticipated Discharge: Within 24 hours
Subjective/Interval History
-
Date of Service: July 30, 2023
Objective Data
-
Labs:
Laboratory Results
07/30/23
08:51
Sodium 139
Potassium 3.9
Chloride 102
Carbon Dioxide 27
BUN 29 H
Creatinine 0.7
Glucose 75
Calcium 9.4
Total Bilirubin 0.9
AST 108 H
ALT 142 H
Alkaline Phosphatase 94
Vital Signs:
Vital Signs
Temp Pulse Resp BP Pulse Ox
97.5 F 61 18 159/77 91
07/30/23 08:00 07/30/23 08:00 07/30/23 08:00 07/30/23 08:00 07/30/23 11:16
I&O
07/29/23 07/30/23 07/31/23
06:59 06:59 06:59
Intake Total 480 / 480 240 / 240
Output Total 200 / 200
Balance 280 / 280 240 / 240
[2023-07-30 12:23] LABS: Creatine Phosphokinase 190 U/L (55-170)
--- NOTE | 2023-07-30 13:42 | CS.PSYCHR ---
Consult Summary - Psychiatry
-
Pt is 73 yo male, brought from SNF with hypoxia, decrease O2 sat, admitted with COPD exacerbation. Pt has history of dementia, is prescribed Aricept, Seroquel, Lexapro, Trazodone. Psychiatry asked to evaluate due to agitation. Pt noted trying to
leave last night, paranoid, with apparent VH, trying to punch and kick staff. Today, pt seen resting in bed, in no distress, calm and cooperative, although not able to give any history due to dementia. Pt oriented to self only. Pt alert,
sensorium appears mostly intact. Pt noted with occasional jerks/twitches in legs and body. No dystonia evident. QTc 460 on admission, same range as one year ago.
PMH: CAD, hypertension, gout, hypothyroidism, GERD, hypercholesterolemia, COPD
Psych hx: none noted other than dementia; unable to obtain further info from pt. Meds: Aricept 10 mg HS, Seroquel 100 mg HS, Lexapro 20 mg QD, Trazodone 50 mg HS
MSE: alert, oriented to self, resting in bed, calm/no current agitation. No signs of psychosis. Affect/mood- neutral/stable. Insight poor
Imp: Dementia, with agitation
Rec: Could try Zyprexa po (Zydis) or IM prn for any further aggressive behavior. Would continue existing medications for now, consider tapering high dose of Lexapro, which can add to agitation
Would consider Neurology consult for jerky/twitching movements
Will follow
[2023-07-30 14:33] LABS: Hepatitis B Surface Antigen Negative (Negative)
[2023-07-30 14:50] LABS: Hepatitis C Antibody Reactive (Negative)
[2023-07-30 15:19] LABS: Hepatitis A Antibody, Total Negative (Negative)
--- NOTE | 2023-07-30 15:57 | CM ---
Faxed updated clinicals and therapy notes to [facility] at [phone]
Spoke with Karen (covering for Merry) [phone] from [facility] and they can accept patient back at current therapy level.
Patient currently on RA but [facility] can support oxygen needs.
Psychiatry consultation completed.
Plan: possible back to [facility] in am. Will need ambulance transport.
Plan: back to [facility] when stable
Report# [phone]
[2023-07-30 16:00] VITALS: BP 103/60
[2023-07-30 16:15] VITALS: PULSE 83; O2SAT 99
[2023-07-30 16:15] LABS: Hepatitis B Surface Antibody Indeterminate
[2023-07-30] MEDS: DESYREL 50 MG PO (19:44)
[2023-07-30] MEDS: ARICEPT 10 MG PO (19:44)
[2023-07-30] MEDS: SEROQUEL 100 MG PO (19:44)
[2023-07-30 23:30] VITALS: BP 119/74
[2023-07-31] MEDS: SYNTHROID 50 MCG PO (05:49)
[2023-07-31] MEDS: DUONEB 3 ML INH ×4 (07:33→19:22)
[2023-07-31 07:57] LABS: ALT (SGPT) 133 U/L (0-50); AST (SGOT) 86 U/L (17-59); Albumin 3.5 g/dl (3.5-5.0); Alkaline Phosphatase 94 U/L (38-126); Direct Bilirubin 0.4 mg/dl (0.0-0.4); Total Bilirubin 0.8 mg/dl (0.2-1.3); Total Protein 6.3 g/dl (6.3-8.2)
[2023-07-31 08:02] VITALS: BP 155/80
[2023-07-31] MEDS: COLACE 100 MG PO ×2 (08:35→20:57)
[2023-07-31] MEDS: LEXAPRO 20 MG PO (08:35)
[2023-07-31] MEDS: PROTONIX 40 MG PO (08:35)
[2023-07-31] MEDS: MIRALAX 17 GRAMS PO (08:35)
[2023-07-31] MEDS: B COMPLEX w/VITAMIN C 2 CAPLET PO (08:35)
[2023-07-31] MEDS: SENOKOT 17.1999999999999993 MG PO ×2 (08:35→20:57)
[2023-07-31] MEDS: DELTASONE 40 MG PO (08:36)
[2023-07-31] MEDS: LOW STRENGTH ASPIRIN 81 MG PO (08:36)
[2023-07-31] MEDS: MUCINEX 600 MG PO ×2 (08:36→20:57)
[2023-07-31] MEDS: VISBIOME 1 CAP PO (08:37)
[2023-07-31] MEDS: COZAAR 50 MG PO (08:37)
[2023-07-31] MEDS: ZYLOPRIM 100 MG PO (08:39)
[2023-07-31] MEDS: HEPARIN 5000 UNITS SC ×2 (08:39→20:57)
--- NOTE | 2023-07-31 08:40 | W.PN.HOSP.TC ---
Today's Communication/Plan
-
see A/P
Assessment / Plan
Assessment / Plan
HPI: 72-year-old male presented from shelter facility secondary to hypoxia.
CT of the chest done as outpatient 07/24/2023 did not show any acute changes but his saturations were in the 80s therefore he was sent over.
CT chest 07/24/2023:
no acute findings. Scattered calcified and noncalcified pleural plaques bilaterally suspicious for asbestos exposure. Small amount of chronic appearing scarring in the lingula and the anterior left lower lobe. Coronary calcifications. Difficulty
eating. Able to drink. has been vomiting small amounts since dinner yesterday
A/P:
# Acute hypoxic respiratory insufficiency, likely secondary to COPD exacerbation vs aspiration pneumonitis
Pt has been weaned off O2, now on RA
Check walking pulse Ox for home O2 requirement
COVID negative, blood cultures negative, MRSA screen neg
Cont nebs
Cont Prednisone 40 mg daily
# Elevated LFT, improving
hepatitis panel reviewed: noted positive hep C Ab, indeterminant hep Bs Ab (but negative surface Ag)- recc outpt GI eval for positivity of hep C Ab (pt has h/o hep C)
Follow Abd US report
Follow LFT
Hold statin
# Coronary disease
continue aspirin, statin, losartan
# Essential hypertension
continue losartan
# Gout
Continue allopurinol
# Hypothyroidism
Continue levothyroxine
# GERD
Continue PPI
# Dementia/depression
Continue donepezil, Lexapro, Seroquel, Trazodone
# Hyperlipidemia
Hold statin
# Diverticulosis
# History of hepatitis C
Daughter doesn't know details
# Ambulatory dysfunction
Full code
DVT prophylaxis�SC heparin
Called daughter to update, calls not answered
Anticipated Discharge: Within 24 hours
Subjective/Interval History
-
Date of Service: July 31, 2023
Objective Data
-
Labs:
Laboratory Results
07/31/23
06:17
Total Bilirubin 0.8
AST 86 H
ALT 133 H
Alkaline Phosphatase 94
Vital Signs:
Vital Signs
Temp Pulse Resp BP Pulse Ox
36.3 C 58 29 155/80 95
07/31/23 08:02 07/31/23 08:02 07/31/23 08:02 07/31/23 08:02 07/31/23 08:02
I&O
07/30/23 07/31/23 08/01/23
06:59 06:59 06:59
Intake Total 240 / 240 480 / 480
Output Total 200 / 200
Balance 240 / 240 280 / 280
Review of Systems
-
Unable to obtain full review of systems at this time due to: Other (sleeping)
Physical Exam
-
General: Well Developed, Well Nourished, No Apparent Distress and Comfortable; Negative Respiratory Distress
HEENT: Normocephalic and Atraumatic; Negative Oxygen
Respiratory: Clear to Auscultation and Non Labored Respirations; Negative Accessory Resp Muscle Use
Cardiac: Regular Rhythm and S1/S2; Negative Murmur
GI: Soft, Nontender, Nondistended and Normal Bowel Sounds
Musculoskeletal: No Clubbing, No Cyanosis and No Edema
Psych: Calm
Data Reviewed
-
Labs: Labs Reviewed by me
--- NOTE | 2023-07-31 12:20 | CM ---
Addendum entered by Yessi Acevedo 07/31/23 14:08:
Updated Karen from [facility] re off medsitter and medication adjustments.
Please update tomorrow if patient ready for d/c.
Original Note:
Patient from [facility].
Discussed with Karen (covering for Merry) on 07/30/23, p#[phone] from [facility] and they can accept patient back at current therapy level. will need to update prior to transfer.
Patient off medsitter this am. Per nursing calm.
Plan: back to [facility] when medically stable. Will need ambulance transport.
Plan: back to [facility] when stable
Report# [phone]
--- NOTE | 2023-07-31 12:43 | W.PN.UPDATE ---
Update Note
Progress Note Update
patient seen chart reviewed. discussed with nursing. mr wang is almost sedated this am . it is possible that whatever was causing his delirium is resolved (hypoxia.....iv steroids etc). i have some concern with use of aricept lexapro and
seroquel all of which have the potential to prolong qtc. his qtc was 461 now 473. he did talk to me to a limited extent. he said he is NOT depressed although he did appear somewhat withdrawn. not clear to me whether this is a part of being a little
sedated. will cut back lexapro to 10 mg. i don't think this will have a deleterious effect. would monitor qtc. consider whether hs dosage of seroquel can be decreased. i cut back hs trazodone to 25 mg. not clear if he needs both seroquel and
trazodone at hs. will check in w him tomorrow. i understand he may be dc tomorrow. anette shirley has been dc'ed
[2023-07-31 14:10] VITALS: BP 133/75; PULSE 74; O2SAT 90
[2023-07-31 14:12] VITALS: BP 133/75; PULSE 74; O2SAT 96
[2023-07-31 15:00] VITALS: BP 133/70
--- NOTE | 2023-07-31 16:49 | PTCARENOTE ---
07/30- Patient's daughter called this RN into room for multiple episodes of choking on his dinner. She states Pt has a hx of Esophageal Stenosis, and this has intermittently happened in the past. Attempted a Swallow Screen with water. Patient
immediately choked on the water upon swallowing it, and spit it back up. Lungs Coarse BL, but Pt able to take in full breaths without accessory muscle use. Cap refill<2sec. POX=92% on 2L, HR=89. Discussed pureed foods, taking small slow bites of
pureed food. Patient verbalized understanding. Notified Physician. Consulted Speech Therapy.
[2023-07-31] MEDS: ARICEPT 10 MG PO (21:00)
[2023-07-31] MEDS: SEROQUEL 100 MG PO (21:00)
[2023-07-31] MEDS: DESYREL 25 MG PO (21:01)
[2023-07-31 23:15] VITALS: BP 125/64
[2023-08-01] MEDS: SYNTHROID 50 MCG PO (06:25)
[2023-08-01 07:41] LABS: Hematocrit 44.7 % (39.0-52.0); Mean Corp Hgb Conc. 33.6 g/dL (33.0-37.0); Mean Corpuscular Hgb 30.9 pg (27.0-31.0); Mean Corpuscular Volume 92.2 fL (80.0-94.0); Mean Platelet Volume 9.1 fL (7.4-10.4); Platelet Count 197 10^3/uL (130-400); Red Blood Cell Count 4.85 10^6/uL (4.70-6.10); Red Cell Dist. Width 13.2 % (11.5-14.5)
[2023-08-01 07:50] VITALS: BP 128/69
[2023-08-01 08:16] LABS: ALT (SGPT) 166 U/L (0-50); AST (SGOT) 92 U/L (17-59); Albumin 3.5 g/dl (3.5-5.0); Alkaline Phosphatase 82 U/L (38-126); Blood Urea Nitrogen 33 mg/dl (9-20); Carbon Dioxide 26 mmol/L (22-30); Chloride 105 mmol/L (98-107); Estimated Creatinine Clearance 69 ml/min; Glucose 86 mg/dl (70-99); Potassium 3.8 mmol/L (3.5-5.1); Sodium 139 mmol/L (135-145); Total Protein 6.2 g/dl (6.3-8.2); eGFR > 60.00
[2023-08-01] MEDS: DUONEB 3 ML INH ×4 (08:21→20:43)
--- NOTE | 2023-08-01 10:06 | W.PN.HOSP.TC ---
Today's Communication/Plan
-
see A/P
Assessment / Plan
Assessment / Plan
HPI: 72-year-old male presented from long-term facility secondary to hypoxia.
CT of the chest done as outpatient 07/24/2023 did not show any acute changes but his saturations were in the 80s therefore he was sent over.
CT chest 07/24/2023:
no acute findings. Scattered calcified and noncalcified pleural plaques bilaterally suspicious for asbestos exposure. Small amount of chronic appearing scarring in the lingula and the anterior left lower lobe. Coronary calcifications. Difficulty
eating. Able to drink. has been vomiting small amounts since dinner yesterday
A/P:
# Acute hypoxic respiratory insufficiency, likely secondary to COPD exacerbation vs aspiration pneumonitis
He has been on and off O2 support
Check repeat walking pulse Ox for home O2 requirement today
COVID negative, blood cultures negative, MRSA screen neg
Cont nebs
Cont Prednisone 40 mg daily
# Elevated LFT, somewhat improving
hepatitis panel reviewed: noted positive hep C Ab, indeterminant hep Bs Ab (but negative surface Ag)- recc outpt GI eval for positivity of hep C Ab (pt has h/o hep C)
Abd US report noted small liver with diffusely coarse in echotexture suggesting possible cirrhosis.
LFT remain elevated but largely stable
Hold statin
Recc GI eval outpatient
# Coronary disease
continue aspirin, losartan
# Essential hypertension
continue losartan
# Gout
Continue allopurinol
# Hypothyroidism
Continue levothyroxine
# GERD
Continue PPI
# Dementia/depression
Continue donepezil, Lexapro, Seroquel, Trazodone
# Hyperlipidemia
Hold statin
# Diverticulosis
# History of hepatitis C
Daughter doesn't know details
# Ambulatory dysfunction
Full code
DVT prophylaxis�SC heparin
updated daughter on the phone
total time spent 51 min
Anticipated Discharge: Within 24 hours
Subjective/Interval History
-
Date of Service: August 01, 2023
Objective Data
-
Labs:
Laboratory Results
08/01/23
07:29
WBC 10.0
Hgb 15.0
Hct 44.7
Plt Count 197
Sodium 139
Potassium 3.8
Chloride 105
Carbon Dioxide 26
BUN 33 H
Creatinine 0.9
Glucose 86
Calcium 9.0
Total Bilirubin 1.0
AST 92 H
ALT 166 H
Alkaline Phosphatase 82
Vital Signs:
Vital Signs
Temp Pulse Resp BP Pulse Ox
36.4 C 82 16 128/69 95
08/01/23 07:50 08/01/23 08:24 08/01/23 08:24 08/01/23 07:50 08/01/23 08:24
I&O
07/31/23 08/01/23 08/02/23
06:59 06:59 06:59
Intake Total 480 / 480 480 / 480
Output Total 200 / 200
Balance 280 / 280 480 / 480
Review of Systems
-
Unable to obtain full review of systems at this time due to: Dementia
Physical Exam
-
General: Well Developed, Well Nourished, No Apparent Distress and Comfortable; Negative Respiratory Distress
HEENT: Normocephalic, Atraumatic and Oxygen (2L NC)
Respiratory: Clear to Auscultation and Non Labored Respirations; Negative Accessory Resp Muscle Use
Cardiac: Regular Rhythm and S1/S2; Negative Murmur
GI: Soft, Nontender, Nondistended and Normal Bowel Sounds
Musculoskeletal: No Clubbing, No Cyanosis and No Edema
Neuro: Awake
Psych: Calm and Apparent Dementia
Data Reviewed
-
Labs: Labs Reviewed by me
[2023-08-01 10:43] VITALS: O2SAT 83; O2SAT 88
[2023-08-01] MEDS: MIRALAX 17 GRAMS PO (11:36)
[2023-08-01] MEDS: B COMPLEX w/VITAMIN C 2 CAPLET PO (11:37)
[2023-08-01] MEDS: LOW STRENGTH ASPIRIN 81 MG PO (11:37)
[2023-08-01] MEDS: PROTONIX 40 MG PO (11:38)
[2023-08-01] MEDS: VISBIOME 1 CAP PO (11:38)
[2023-08-01] MEDS: DELTASONE 40 MG PO (11:38)
[2023-08-01] MEDS: COLACE 100 MG PO ×2 (11:38→20:55)
[2023-08-01] MEDS: MUCINEX 600 MG PO ×2 (11:38→20:55)
[2023-08-01] MEDS: HEPARIN 5000 UNITS SC ×2 (11:39→21:01)
[2023-08-01] MEDS: SENOKOT 17.1999999999999993 MG PO ×2 (11:39→20:55)
[2023-08-01] MEDS: ZYLOPRIM 100 MG PO (11:44)
[2023-08-01] MEDS: COZAAR 50 MG PO (11:44)
[2023-08-01] MEDS: LEXAPRO 10 MG PO (11:45)
--- NOTE | 2023-08-01 13:00 | W.PN.UPDATE ---
Update Note
Progress Note Update
patient seen chart reviewed. patient seemed to me to be less sedated than he was yesterday perhaps with the decrease in trazodone. . he does remain confused. he offered no complaints. he is not in any pain. he did tell me he had been cold but got a
blanket. spoke with nursing. no problems. no need for prn's and patient is off med sitter. cm reported in her note that he is accepted for [facility]. going forward need to keep an eye on qtc as he is on seroquel lexapro and aricept. psych will
sign off.
[2023-08-01 14:40] VITALS: BP 113/62; PULSE 75; O2SAT 92
[2023-08-01 15:44] VITALS: BP 106/52
[2023-08-01] MEDS: DESYREL 25 MG PO (20:59)
[2023-08-01] MEDS: ARICEPT 10 MG PO (20:59)
[2023-08-01] MEDS: SEROQUEL 100 MG PO (20:59)
[2023-08-01 23:00] VITALS: BP 108/60
[2023-08-02] MEDS: SYNTHROID 50 MCG PO (05:37)
[2023-08-02 07:30] VITALS: BP 143/73
[2023-08-02 07:47] LABS: Hematocrit 43.6 % (39.0-52.0); Hemoglobin 15.1 g/dL (13.0-18.0); Mean Corp Hgb Conc. 34.6 g/dL (33.0-37.0); Mean Corpuscular Hgb 30.7 pg (27.0-31.0); Mean Corpuscular Volume 88.6 fL (80.0-94.0); Mean Platelet Volume 9.3 fL (7.4-10.4); Platelet Count 221 10^3/uL (130-400); Red Blood Cell Count 4.92 10^6/uL (4.70-6.10); Red Cell Dist. Width 13.2 % (11.5-14.5); White Blood Cell Count 12.2 10^3/uL (4.8-10.8)
[2023-08-02] MEDS: DUONEB 3 ML INH (08:13)
[2023-08-02 08:27] LABS: AST (SGOT) 92 U/L (17-59); Albumin 3.6 g/dl (3.5-5.0); Blood Urea Nitrogen 28 mg/dl (9-20); Calcium 9.3 mg/dl (8.4-10.2); Carbon Dioxide 23 mmol/L (22-30); Estimated Creatinine Clearance 88 ml/min; Glucose 98 mg/dl (70-99); Potassium 4.5 mmol/L (3.5-5.1); Total Protein 6.4 g/dl (6.3-8.2); eGFR > 60.00
[2023-08-02 08:45] LABS: ALT (SGPT) 181 U/L (0-50); Alkaline Phosphatase 82 U/L (38-126); Chloride 106 mmol/L (98-107); Sodium 137 mmol/L (135-145)
--- NOTE | 2023-08-02 09:09 | W.PN.HOSP.TC ---
Addendum entered and electronically signed by Janine Crawley MD 08/02/23 13:27:
total DC time 36 min
Original Note:
Today's Communication/Plan
-
see AP
Assessment / Plan
Assessment / Plan
HPI: 72-year-old male presented from long-term facility secondary to hypoxia.
CT of the chest done as outpatient 07/24/2023 did not show any acute changes but his saturations were in the 80s therefore he was sent over.
CT chest 07/24/2023:
no acute findings. Scattered calcified and noncalcified pleural plaques bilaterally suspicious for asbestos exposure. Small amount of chronic appearing scarring in the lingula and the anterior left lower lobe. Coronary calcifications. Difficulty
eating. Able to drink. has been vomiting small amounts since dinner yesterday
A/P:
# Acute hypoxic respiratory insufficiency, likely secondary to COPD exacerbation vs aspiration pneumonitis
He has been on and off O2 support
walking pulse Ox noted need for home O2: 88% on RA at rest, 83% with ambulation on RA, 92% on 2L NC with ambulation
COVID negative, blood cultures negative, MRSA screen neg
Cont nebs
Cont Prednisone 40 mg daily with taper outpt
# Elevated LFT, somewhat improving
hepatitis panel reviewed: noted positive hep C Ab, indeterminant hep Bs Ab (but negative surface Ag)- recc outpt GI eval for positivity of hep C Ab (pt has h/o hep C)
Abd US report noted small liver with diffusely coarse in echotexture suggesting possible cirrhosis.
daughter informed about positive hep C Ab and Abd US report, and informed about outpt GI eval.
LFT remain elevated but largely stable , follow LFT outpt with result to PCP
Cont to hold statin
Recc GI eval outpatient
# Coronary disease
continue aspirin, losartan
# Essential hypertension
continue losartan
# Gout
Continue allopurinol
# Hypothyroidism
Continue levothyroxine
# GERD
Continue PPI
# Dementia/depression
Continue donepezil, Lexapro, Seroquel, Trazodone
# Hyperlipidemia
Hold statin
# Diverticulosis
# History of hepatitis C
Daughter doesn't know details
# Ambulatory dysfunction
Full code
DVT prophylaxis�SC heparin
DW CM
updated daughter on the phone
Anticipated Discharge: Today
Subjective/Interval History
-
Date of Service: August 02, 2023
Objective Data
-
Labs:
Laboratory Results
08/02/23
07:35
WBC 12.2 H
Hgb 15.1
Hct 43.6
Plt Count 221
Sodium 137
Potassium 4.5
Chloride 106
Carbon Dioxide 23
BUN 28 H
Creatinine 0.7
Glucose 98
Calcium 9.3
Total Bilirubin 1.0
AST 92 H
ALT 181 H
Alkaline Phosphatase 82
Vital Signs:
Vital Signs
Temp Pulse Resp BP Pulse Ox
36.3 C 68 16 143/73 93
08/02/23 07:30 08/02/23 08:15 08/02/23 08:15 08/02/23 07:30 08/02/23 08:15
I&O
08/01/23 08/02/23 08/03/23
06:59 06:59 06:59
Intake Total 480 / 480 720 / 720
Output Total 575 / 575
Balance 480 / 480 145 / 145
Review of Systems
-
Unable to obtain full review of systems at this time due to: Dementia
Physical Exam
-
General: Well Developed, Well Nourished, No Apparent Distress and Comfortable; Negative Respiratory Distress
HEENT: Normocephalic, Atraumatic and Oxygen (2L NC)
Respiratory: Clear to Auscultation and Non Labored Respirations; Negative Accessory Resp Muscle Use
Cardiac: Regular Rhythm and S1/S2; Negative Murmur
GI: Soft, Nontender, Nondistended and Normal Bowel Sounds
Musculoskeletal: No Clubbing, No Cyanosis and No Edema
Neuro: Awake
Psych: Calm and Apparent Dementia
Data Reviewed
-
Diagnostic Radiology: Image personally visualized and interpreted and Report Reviewed by me
Labs: Labs Reviewed by me
--- NOTE | 2023-08-02 09:28 | CM ---
Addendum entered by Yessi Acevedo 08/02/23 12:57:
Faxed updated clinicals, PT and resp notes to [facility].
Addendum entered by Yessi Acevedo 08/02/23 10:48:
Per Jeannette/[employer] oxygen should arrive before 3 pm.
IMM reviewed with daughter via phone. Updated re transport time 3 pm.
Original Note:
Spoke with Merry from the [facility], they are able to take back on oxygen.
No preference to oxygen company.
Referral placed with [employer].
Plan: back to [facility] when medically stable. Will need ambulance transport.
[facility]
Report# [phone]
[facility]
[2023-08-02 10:10] LABS: Procalcitonin < 0.05 ng/ml (0.0-0.25)
[2023-08-02] MEDS: SENOKOT 17.1999999999999993 MG PO (10:11)
[2023-08-02] MEDS: VISBIOME 1 CAP PO (10:12)
[2023-08-02] MEDS: LEXAPRO 10 MG PO (10:12)
[2023-08-02] MEDS: LOW STRENGTH ASPIRIN 81 MG PO (10:12)
[2023-08-02] MEDS: MUCINEX 600 MG PO (10:12)
[2023-08-02] MEDS: MIRALAX 17 GRAMS PO (10:13)
[2023-08-02] MEDS: ZYLOPRIM 100 MG PO (10:13)
[2023-08-02] MEDS: DELTASONE 40 MG PO (10:24)
[2023-08-02] MEDS: B COMPLEX w/VITAMIN C 2 CAPLET PO (10:25)
[2023-08-02] MEDS: PROTONIX 40 MG PO (10:25)
[2023-08-02] MEDS: HEPARIN 5000 UNITS SC (10:25)
[2023-08-02] MEDS: COLACE 100 MG PO (10:25)
[2023-08-02] MEDS: COZAAR 50 MG PO (10:25)
[2023-08-02] MEDS: DUONEB INH ×2 (11:42→15:05)
--- NOTE | 2023-08-02 13:15 | W.DCSUMMARY ---
Discharge Summary
Discharge Data
Date of Admission: 07/26/23
Date of Discharge: 08/02/23
-
Pending Results: No
Hospital Course
Principal Diagnosis:
Acute hypoxic respiratory insufficiency, secondary to COPD exacerbation versus aspiration pneumonitis
Elevated LFT, stable
Chronic Diagnoses:�
Coronary artery disease
Essential hypertension
Gout on allopurinol
Hypothyroidism on levothyroxine
Gastroesophageal reflux disease
Dementia/depression, on donepezil, Lexapro, Seroquel, Trazodone
Hyperlipidemia, holing statin due to elevated LFT
Diverticulosis
History of hepatitis C
Ambulatory dysfunction
Consultations:�
Psychiatry
Procedures:�
None
Clinical course:�
This is a 72-year-old male from dementia unit, with past medical history as stated above, who presented with hypoxia.
Problem 1:
Acute hypoxic respiratory insufficiency, secondary to COPD exacerbation versus aspiration pneumonitis.
It appeared that the patient would requires home oxygen following discharge based on home O2 assessment, hence home oxygen was arranged by the egg caser.
He can continue with 2 L nasal cannula going forward.
Of note, his COVID test was negative, blood cultures were negative, MRSA screen was negative and procalcitonin level negative.
He was started with prednisone and continue outpatient tapering to off.
Problem 2:
Elevated LFT, stable.
His hepatitis panel noted positive hep C Ab, indeterminant hep Bs Ab (but negative surface Ag).
His abdominal ultrasound noted small liver with diffusely coarse in echotexture suggesting possible cirrhosis.
His daughter has been informed to have the patient follow-up GI outpatient for the positivity of hep C Ab and the abdominal ultrasound finding.
He can repeat LFT outpatient with result to his PCP.
For the time being, hold prior to admission Lipitor until further directed by his PCP.
As for the rest of his medical problems, they were stable during his hospital stay.
Discharge Plan
-
Patient Disposition: Assisted Living
Discharge Diagnosis/Procedures: Acute hypoxic respiratory insufficiency secondary to COPD exacerbation; elevated liver enzymes with positive hepatitis C antibody and possible cirrhosis ; dementia
Condition: Fair
Diet: As tolerated, Low Fat, Low Cholesterol and Low Sodium
Activity: With assistance and As tolerated
Driving Restrictions: No driving
Blood Work: LFT in 1 week with result to your PCP
Other Services: VN
Activity Restrictions/Additional Instructions:
Follow up with the GI doctor for your positive hepatitis C antibody and possible cirrhosis
Referrals:
Balwinder Kumari DO [Family Provider] - in less than 1 week
Luis Fernando Farris MD [Active] -
Additional Discharge Medication Instructions: Continue prednisone taper: 30 mg x3 days, 20 mg x3 days, 10 mg x3 days then stop
stop imodium
Hold Lipitor due to elevated liver enzymes
Prescriptions:
New
guaifenesin 600 mg Tablet Extended Release 12hr
600 mg PO Q12 Qty: 10 0RF
prednisone 10 mg Tablet
See Rx Instructions .ROUTE .COMPLEX Qty: 18 0RF
Rx Instructions:
Take By Mouth:
30 mg daily x3 days,
20 mg daily x3 days, 10 mg daily x3 days.
Continued
losartan 50 MG tablet
50 mg PO DAILY
allopurinol 100 MG tablet
100 mg PO DAILY
acetaminophen 325 mg Tablet
650 mg PO Q4HPRN PRN (Reason: mild pain/fever>100F)
donepezil 10 mg Tablet
10 mg PO HS
quetiapine 100 mg Tablet
100 mg PO HS
aspirin 81 mg Tablet,Chewable
81 mg PO DAILY
trazodone 50 mg Tablet
50 mg PO HS
levothyroxine [Synthroid] 50 mcg Tablet
50 mcg PO DAILY
escitalopram oxalate [Lexapro] 20 mg Tablet
20 mg PO DAILY
mometasone 0.1 % Cream
1 applic TOPICAL BIDPRN PRN (Reason: apply to psoriasis)
vitamin B complex Capsule
2 cap PO DAILY
esomeprazole magnesium 20 mg Capsule,Delayed Release(Dr/Ec)
40 mg PO DAILY
eucalyptus-menthol Lozenge
3.1 mg MUCOUS MEMBRANE DAILYPRN PRN (Reason: cough)
ceramides 1,3,6-II Lotion
1 applic TOPICAL BIDPRN PRN (Reason: dryness)
albuterol sulfate 90 mcg/actuation HFA aerosol inhaler
2 puff inhalation R Q6HPRN PRN (Reason: shortness of breath or wheezing)
Visbiome 112.5 billion cell Capsule
1 cap PO DAILY Qty: 0 0RF
Held
atorvastatin 80 mg Tablet
80 mg PO HS
Hold Instructions: Resume on 08/09/23.
Discontinued
loperamide 2 mg Capsule
4 mg PO Q6HPRN PRN (Reason: diarrhea)
Rx Instructions:
2 capsules to start, then 1 capsule after each loose stool
Discharge Orders:
Discharge Patient (As Directed); Ordered 08/02/23
Ordered By: Janine Crawley
Discharge Date and Time
Print Language: MAORI
[2023-08-02 15:22] VITALS: BP 149/75
== END 2023-08-02 15:36 | disposition home or self-care (01) | DRG 190 ==
LOC: 4 WEST ACU 08:41
PROVIDERS: Hospitalist; Internal Medicine; Physician Assistant; ADMITTING PHYSICIAN Hospitalist; ATTENDING PHYSICIAN Internal Medicine; CONSULT PHYSICIAN Psychiatry & Neurology Psychiatry; EMERGENCY PHYSICIAN Student in an Organized Health Care Education/Training Program; FAMILY PHYSICIAN Internal Medicine
DX: J44.1 Chronic obstructive pulmonary disease with (acute) exacerbation (principal); J69.0 Pneumonitis due to inhalation of food and vomit; F03.93 Unspecified dementia, unspecified severity, with mood disturbance; F03.911 Unspecified dementia, unspecified severity, with agitation; I25.10 Atherosclerotic heart disease of native coronary artery without angina pectoris; I10 Essential (primary) hypertension; M10.9 Gout, unspecified; E03.9 Hypothyroidism, unspecified; K21.9 Gastro-esophageal reflux disease without esophagitis; J61 Pneumoconiosis due to asbestos and other mineral fibers; F32.A Depression, unspecified; E78.00 Pure hypercholesterolemia, unspecified; R09.02 Hypoxemia; R79.89 Other specified abnormal findings of blood chemistry; B19.20 Unspecified viral hepatitis C without hepatic coma; K74.60 Unspecified cirrhosis of liver; Z87.891 Personal history of nicotine dependence; Z79.82 Long term (current) use of aspirin; Z11.52 Encounter for screening for COVID-19; I25.2 Old myocardial infarction
CPT/HCPCS: 71046; 71260; 76700; 80048; 80053; 80076; 82550; 83605; 83735; 84145; 84484; 85025; 85027; 86706; 86708; 86803; 87040; 87340; 87811; 92526; 92610; 93005; 94640; 94760; 94761; 96374; 97116; 97163; 97166; 97530; 97535; 99285; Q9967

== ENCOUNTER → 2023-08-05 09:45 | Outpatient (REF) | payer MEDICARE, OTHER, SELFPAY ==
[2023-08-05 11:07] LABS: ALT (SGPT) 196 U/L (0-50); AST (SGOT) 75 U/L (17-59); Albumin 3.3 g/dl (3.5-5.0); Alkaline Phosphatase 115 U/L (38-126); Direct Bilirubin 0.4 mg/dl (0.0-0.4); Total Bilirubin 0.6 mg/dl (0.2-1.3)
[2023-08-05 19:41] LABS: Hepatitis C Antibody Reactive (Negative)
== END ==
LOC: OLABPATH 09:45
PROVIDERS: ATTENDING PHYSICIAN Internal Medicine; FAMILY PHYSICIAN Internal Medicine
DX: B18.2 Chronic viral hepatitis C (principal)
CPT/HCPCS: 36415; 80076; 86803

== ENCOUNTER 2023-08-21 20:03 | Emergency (ER) | payer MEDICARE, OTHER, SELFPAY ==
[2023-08-21 20:07] VITALS: BP 160/77
[2023-08-21 20:24] VITALS: BMI 25.6
[2023-08-21 21:12] VITALS: BP 151/72
[2023-08-21 21:57] VITALS: BP 151/72
--- NOTE | 2023-08-21 21:59 | ED.GENMED ---
History of Present Illness
General
Chief Complaint: Crisis Evaluation
Source: patient and family
Exam Limitations: dementia
Time Seen by Provider: 08/21/23 20:21
History of Present Illness
History of Present Illness:
pt is a 73 y/o M from [facility]
h/o dementia
recently 1 mo ago he was hospitalized, had copd and requires o2 chronically nwo
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
this has been yovanny on for about a month and he has been having some depressed thoughts
he is on lexapro and seroquel
daughter says that since his hospitalization some med adjustments were made while hosptialized and she thinks that is contributing
apparently today he said a few times to the RN at the facility that he was having thoughts of 'ending it' or letting go.
they sent him in for SI
pt says maybe i said those things, but i don't want to hurt myself, he says 'i don't know how i would even do that.'
pt is at his baseline otherwise
daughter believes he doesn't want to hurt self
she is here and POA
no medial complaints, fever, chils, nausea, vomiting, uti sxs
this has been going on for about a month.
Past History
Past History
ED Past Medical History: CAD, GERD, HTN, Hypercholesterolemia, [place], Renal failure, Hypothyroidism, Psychiatric (Patient states he has dementia) and Other (Dementia)
ED Past Surgical History: Bowel resection, Cardiac and Orthopedic
Social History
Tobacco: Former smoker
Alcohol: None
Drug: None
Personal:
Living: assisted living
Employment: Retired
Family History
Family History: Other (Noncontributory)
Review of Systems
Review of Systems
Allergies reviewed?: Yes
Unable to obtain full review of systems at this time due to: dementia
Phy Exam
Physical Exam
Physical Exam:
GENERAL: Alert , in no apparent distress
EYE: pupils equal and reactive
NECK: Supple
ENT: o/p clr, mmm.
CARDIAC: Regular rate and rhythm .
LUNGS: on o2;
Clear breath sounds bilaterally, no acute respiratory distress, no wheezes/rales/rhonchi
ABDOMEN: Soft, without focal tenderness, no r/g, no cvat, normal bowel sounds
NEUROLOGICAL: Alert and oriented x 2 (disoriented to person), no focal neuro deficits, moves all extremities;
SKIN: Warm and dry, skin intact.
MUSCULOSKELETAL: No edema, well perfused.
PSYCH: Normal and appropriate interaction. not agitated, cooperative, no objective SI, some delusions (thinks he is at work)
Course
Orders/Labs/Results
Orders:
Orders
08/21/23 20:58
Crisis Consult Urgent
Reason for Consult: si
08/21/23 21:17
08/21/23 21:17
Vital Signs
Initial and Last Documented VS:
Initial Vital Signs
Temp Pulse Resp BP Pulse Ox
98.1 F 59 19 160/77 96
08/21/23 20:07 08/21/23 20:07 08/21/23 20:07 08/21/23 20:07 08/21/23 20:07
Last Documented Vital Signs
Temp Pulse Resp BP Pulse Ox
98.1 F 60 15 151/72 96
08/21/23 20:07 08/21/23 21:57 08/21/23 21:57 08/21/23 21:57 08/21/23 21:57
MDM/Problems Addressed
Differential Diagnosis Includes:
Si, DEMENTIA
MDM/Problems Addressed:
73 y/o M with dementia
new o2
daughter believes it is triggering him to have more agitation and hallucinations/delusions, thinks he is at work again where he used to deal with wires; he doesn't like wearing the o2
feels trapped
told the RN today esau the thought about hurting self
passive SI thoughts not confirmed here
pt is oriented to his basline
no medical complaitns
denies plan
seen by crisis and given outpatient ressources
[facility] will take him anna.
*Critical Care Note
Total Time (30-74mins, 75-104mins- exclusive of procedures): Not Applicable
ED Attending Note
-
Portions of this chart may have been created with voice recognition software.� Occasional wrong word or��sound alike� substitutions may have occurred due to the inherent limitations of voice recognition software.
Discharge Plan
Departure
Patient Disposition: Home (Routine Discharge)
Date of Disposition: 08/21/23
Time of Disposition: 21:59
Patient with high blood pressure during this ER visit?: No
Condition: Fair
Covid-19: Not Applicable
Discharge Problem:
Depression, Dementia
Instructions: Depression, Adult (DC)
Prescriptions:
No Action
losartan 50 MG tablet
50 mg PO DAILY
allopurinol 100 MG tablet
100 mg PO DAILY
acetaminophen 325 mg Tablet
650 mg PO Q4HPRN MDD 3000 mg PRN (Reason: mild pain)
donepezil 10 mg Tablet
10 mg PO HS
quetiapine 100 mg Tablet
100 mg PO HS
trazodone 50 mg Tablet
50 mg PO HS
levothyroxine [Synthroid] 50 mcg Tablet
50 mcg PO DAILY
escitalopram oxalate [Lexapro] 20 mg Tablet
20 mg PO DAILY
mometasone 0.1 % Cream
1 applic TOPICAL BIDPRN PRN (Reason: psoriasis)
vitamin B complex Capsule
2 cap PO DAILY
esomeprazole magnesium 20 mg Capsule,Delayed Release(Dr/Ec)
40 mg PO DAILY
ceramides 1,3,6-II Lotion
1 applic TOPICAL BIDPRN PRN (Reason: dryness)
albuterol sulfate 90 mcg/actuation HFA aerosol inhaler
2 puff inhalation R Q6HPRN PRN (Reason: shortness of breath or wheezing)
Visbiome 112.5 billion cell Capsule
1 cap PO DAILY Qty: 0 0RF
loperamide 2 mg Capsule
4 mg PO DAILYPRN MDD 16 mg PRN (Reason: diarrhea)
Rx Instructions:
Take 2 capsules to start, then 1 capsule after each loose stool
aspirin 81 mg Tablet,Delayed Release (Dr/Ec)
81 mg PO DAILY
[place] Cough Drops lozenge
1 coy mucous membrane DAILYPRN PRN (Reason: cough)
guaifenesin 600 mg tablet extended release 12hr
600 mg PO BID
Referrals:
Balwinder Kumari, [Family Provider] - Follow up in 2-3 days
Activity Restrictions/Additional Instructions:
WE ARE NOT SURE IF THE MEDICATIONS YOU ARE ON ARE HELPING YOUR DEPRESSION
YOU CAN SPEAK WITH YOUR DOCTOR OR A PSYCHIATRIST ABOUT HOW TO OPTIMIZE THE MEDICATIONS
RETURN FOR ANY CONCERNS.
CRISIS EVLUATED THE PATIENT AND DID NOT FEEL THAT HE WAS NEEDING ANY INPATIENT TREATMENT.
Interventions
Interventions:
*Risk Screen - Suicide Last Done: 08/21/23 20:07
*General Assessment Last Done: 08/21/23 20:07
*Neglect/Abuse Screening Last Done: 08/21/23 20:07
*ED COVID-19 Vaccine History Last Done: 08/21/23 20:07
*Nursing Disposition Last Done: 08/21/23 22:41
ED-Psychological Assessment Last Done: 08/21/23 20:07
Discharge Date and Time
Discharge Date/Time: 08/21/23 22:42
Print Language: KOREAN
== END 2023-08-21 22:42 | disposition home or self-care (01) ==
LOC: EMR 20:03
PROVIDERS: EMERGENCY PHYSICIAN Emergency Medicine; FAMILY PHYSICIAN Internal Medicine
DX: F03.90 Unspecified dementia, unspecified severity, without behavioral disturbance, psychotic disturbance, mood disturbance, and anxiety (principal); F32.A Depression, unspecified; I25.10 Atherosclerotic heart disease of native coronary artery without angina pectoris; K21.9 Gastro-esophageal reflux disease without esophagitis; I10 Essential (primary) hypertension; E78.00 Pure hypercholesterolemia, unspecified; E03.9 Hypothyroidism, unspecified; Z87.891 Personal history of nicotine dependence
CPT/HCPCS: 99282

== ENCOUNTER 2023-09-18 05:43 | Emergency (ER) | payer MEDICARE, OTHER, SELFPAY ==
[2023-09-18 05:44] VITALS: BP 168/78; BMI 25.2
--- NOTE | 2023-09-18 06:11 | EDRN ---
Patients laceration cleaned up some, gauze on it until doctor looks at it.
--- NOTE | 2023-09-18 06:28 | ED.GENMED ---
History of Present Illness
<Concha Márquez MD - Last Filed: 09/18/23 08:13>
General
Chief Complaint: Skin Surface Trauma
Source: patient and records
Time Seen by Provider: 09/18/23 06:21
History of Present Illness
History of Present Illness:
73-year-old male reportedly was in bed and leaned to grab something up the nightstand and hit the left side of his face. No reported loss of consciousness. I do not see documentation the patient is on anticoagulation. Patient suffered a
laceration just under the left eyebrow. He denies other complaints such as neck pain, numbness, tingling, headache, visual changes, chest pain, shortness of breath, or other complaints.
Past History
<Concha Márquez MD - Last Filed: 09/18/23 08:13>
Past History
ED Past Medical History: CAD, GERD, HTN, Hypercholesterolemia, [place], Renal failure, Hypothyroidism, Psychiatric (Patient states he has dementia) and Other (Dementia)
ED Past Surgical History: Bowel resection, Cardiac and Orthopedic
Social History
Tobacco: Former smoker
Alcohol: None
Drug: None
Personal:
Living: assisted living
Employment: Retired
Family History
Family History: Other (Noncontributory)
Phy Exam
<Concha Márquez MD - Last Filed: 09/18/23 08:13>
Physical Exam
Physical Exam:
GENERAL: Alert , in no apparent distress, resting comfortably, pleasant
EYE: pupils equal and reactive, EOMI, no photophobia, no nystagmus, no hyphema noted
NECK: Supple, no significant adenopathy, no midline tenderness.
ENT: o/p clr, mmm. There is a small left periorbital ecchymosis developing. There is a proximately 5 cm laceration noted just inferior to the eyebrow on the left side without extension into the eyelid
CARDIAC: Regular rate and rhythm .
LUNGS: Clear breath sounds bilaterally, no acute respiratory distress, no wheezes/rales/rhonchi
ABDOMEN: Soft, without focal tenderness, no r/g, no cvat
NEUROLOGICAL: Awake and pleasant, no focal neuro deficits
SKIN: Warm and dry, skin intact except laceration as noted above.
MUSCULOSKELETAL: No edema, well perfused.
PSYCH: Normal and appropriate interaction.
Course
<Concha Márquez MD - Last Filed: 09/18/23 08:13>
Orders/Labs/Results
Orders:
Orders
09/18/23 06:27
CT Facial Bones W/o Iv Contras Stat
Comment:
Reason For Exam: fall,L periorbital trauma
CT Head W/o Iv Contrast Urgent
Comment:
Reason For Exam: fall, dementia
Lidocaine/Epinephrine/Tetracai [Let Topical Anesthetic Gel] 3 ml TOPICAL NOW STA
Vital Signs
Initial and Last Documented VS:
Initial Vital Signs
Temp Resp BP Pulse Ox
97.4 F 16 168/78 93
09/18/23 05:44 09/18/23 05:44 09/18/23 05:44 09/18/23 05:44
Last Documented Vital Signs
Temp Pulse Resp BP Pulse Ox
97.4 F 72 18 151/75 92
09/18/23 05:44 09/18/23 08:13 09/18/23 08:13 09/18/23 08:13 09/18/23 08:13
<Tara Hardwick NP - Last Filed: 09/18/23 15:54>
Orders/Labs/Results
Orders:
Orders
09/18/23 06:27
CT Facial Bones W/o Iv Contras Stat
Comment:
Reason For Exam: fall,L periorbital trauma
CT Head W/o Iv Contrast Urgent
Comment:
Reason For Exam: fall, dementia
Lidocaine/Epinephrine/Tetracai [Let Topical Anesthetic Gel] 3 ml TOPICAL NOW STA
Vital Signs
Initial and Last Documented VS:
Initial Vital Signs
Temp Resp BP Pulse Ox
97.4 F 16 168/78 93
09/18/23 05:44 09/18/23 05:44 09/18/23 05:44 09/18/23 05:44
Last Documented Vital Signs
Temp Pulse Resp BP Pulse Ox
97.4 F 72 18 151/75 92
09/18/23 05:44 09/18/23 08:13 09/18/23 08:13 09/18/23 08:13 09/18/23 08:13
Procedures
<Tara Hardwick [employer] - Last Filed: 09/18/23 15:54>
Laceration Closure
Left Upper Eye lid:
Status of Wound: clean
Description of Wound Edges: ragged
Preparation: cleaned with saline
Anesthesia: 1% Lidocaine and Topical-LET
Revision/Debridement: routine- no revision
Type of Closure: running stitch
Skin Closure Material: 6-0 vicryl
Number of sutures: 10
<Tara Hardwick [employer] - Last Filed: 09/18/23 15:54>
*Critical Care Note
Total Time (30-74mins, 75-104mins- exclusive of procedures): Not Applicable
<Concha Márquez MD - Last Filed: 09/18/23 08:13>
Update Note
Update Note:
Patient presents to the Emergency Department with ___head strike
Number and Complexity of Problems Addressed at the Encounter
� Chronic conditions affecting care:
� Acute Exacerbation and/or Progression of Chronic Illness:
� Differential Diagnosis includes: But not limited to laceration, facial fracture, intracranial bleed, etc.
Amount and/or Complexity of Data to be Reviewed and Analyzed
� I performed an independent evaluation of and my interpretation is:
EKG:
CT:read by Miroslava HEAD CT:
1. No CT evidence for acute intracranial hemorrhage or calvarial fracture.
2. Mild to moderate diffuse cerebral and cerebellar volume loss.
3. Mild periventricular white matter leukoaraiosis.
FACIAL BONES CT:
1. Moderate acute soft tissue contusion and preseptal soft tissue swelling over the left orbit.
2. No CT evidence for acute intraorbital injury.
3. No CT evidence for acute orbital wall, facial bone, nasal bone, or zygomatic arch fracture.
4. Severe discogenic degenerative disease and facet joint arthrosis in the cervical spine causing mild spinal cord compression, mild central canal stenosis, and severe neural foraminal narrowing.
Xrays:
Laboratory Studies:
Other:
� Review of other/old records reveals:
� Clinical information was obtained by an independent historian:
� Prescriptions/Medications Considered but not given:
� Further testing considered but not performed:
Risk of Complications and/or Morbidity or Mortality of Patient Management
� Social determinants of health affecting care:
� Discussion with other providers (PCP, Hospitalists, Consultants, etc):
� Escalation of care including admission/observation vs risk of discharge considered:
ED Attending Note
<Concha Márquez MD - Last Filed: 09/18/23 08:13>
-
Portions of this chart may have been created with voice recognition software.� Occasional wrong word or��sound alike� substitutions may have occurred due to the inherent limitations of voice recognition software.
Discharge Plan
Departure
Patient Disposition: Home (Routine Discharge)
Date of Disposition: 09/18/23
Time of Disposition: 08:13
Patient with high blood pressure during this ER visit?: Yes
Condition: Good
Discharge Problem:
Laceration, Head injury
Instructions: Head injury in adults, Laceration Repair With Stitches (DC), BLOOD PRESSURE
Prescriptions:
No Action
losartan 50 MG tablet
50 mg PO DAILY
allopurinol 100 MG tablet
100 mg PO DAILY
acetaminophen 325 mg Tablet
650 mg PO Q4HPRN MDD 3000 mg PRN (Reason: mild pain)
donepezil 10 mg Tablet
10 mg PO HS
quetiapine 100 mg Tablet
100 mg PO HS
trazodone 50 mg Tablet
50 mg PO HS
levothyroxine [Synthroid] 50 mcg Tablet
50 mcg PO DAILY
escitalopram oxalate [Lexapro] 20 mg Tablet
20 mg PO DAILY
mometasone 0.1 % Cream
1 applic TOPICAL BIDPRN PRN (Reason: psoriasis)
vitamin B complex Capsule
2 cap PO DAILY
esomeprazole magnesium 20 mg Capsule,Delayed Release(Dr/Ec)
40 mg PO DAILY
ceramides 1,3,6-II Lotion
1 applic TOPICAL BIDPRN PRN (Reason: dryness)
albuterol sulfate 90 mcg/actuation HFA aerosol inhaler
2 puff inhalation R Q6HPRN PRN (Reason: shortness of breath or wheezing)
Visbiome 112.5 billion cell Capsule
1 cap PO DAILY Qty: 0 0RF
loperamide 2 mg Capsule
4 mg PO DAILYPRN MDD 16 mg PRN (Reason: diarrhea)
Rx Instructions:
Take 2 capsules to start, then 1 capsule after each loose stool
aspirin 81 mg Tablet,Delayed Release (Dr/Ec)
81 mg PO DAILY
[place] Cough Drops lozenge
1 coy mucous membrane DAILYPRN PRN (Reason: cough)
guaifenesin 600 mg tablet extended release 12hr
600 mg PO BID
Referrals:
Balwinder Kumari, DO [Family Provider] -
Activity Restrictions/Additional Instructions:
IF YOU DEVELOP DIZZINESS, CHEST PAIN, TROUBLE BREATHING, SEVERE HEADACHE, VOMITING, NUMBNESS OR OTHER WORRISOME SIGNS, GO TO THE ER IMMEDIATELY!
Interventions
Interventions:
*Risk Screen - Suicide Last Done: 09/18/23 05:44
*General Assessment Last Done: 09/18/23 05:44
*Neglect/Abuse Screening Last Done: 09/18/23 05:44
ED- Fall Risk Assessment Last Done: 09/18/23 06:07
*ED COVID-19 Vaccine History Last Done: 09/18/23 05:44
*Nursing Disposition Last Done: 09/18/23 08:30
ED-Skin Assessment Last Done: 09/18/23 06:07
Discharge Date and Time
Discharge Date/Time: 09/18/23 08:30
Print Language: SLOV[place]
[2023-09-18] MEDS: LET TOPICAL ANESTHETIC GEL 3 ML TOPICAL (06:41)
[2023-09-18 07:10] VITALS: BP 154/87
[2023-09-18 08:13] VITALS: BP 151/75
== END 2023-09-18 08:30 | disposition home or self-care (01) ==
LOC: EMR 05:43
PROVIDERS: EMERGENCY PHYSICIAN Emergency Medicine; FAMILY PHYSICIAN Internal Medicine
DX: S09.90XA Unspecified injury of head, initial encounter (principal); S01.81XA Laceration without foreign body of other part of head, initial encounter; W22.03XA Walked into furniture, initial encounter; I25.10 Atherosclerotic heart disease of native coronary artery without angina pectoris; K21.9 Gastro-esophageal reflux disease without esophagitis; I10 Essential (primary) hypertension; E78.00 Pure hypercholesterolemia, unspecified; I25.2 Old myocardial infarction; E03.9 Hypothyroidism, unspecified; F03.90 Unspecified dementia, unspecified severity, without behavioral disturbance, psychotic disturbance, mood disturbance, and anxiety
CPT/HCPCS: 99284; 12013; 70450; 70486

== ENCOUNTER → 2023-11-08 10:26 | Outpatient (REF) | payer MEDICARE, OTHER, SELFPAY ==
[2023-11-08 11:04] LABS: Urine Albumin Negative (Neg - Trace); Urine Bilirubin Negative (Negative); Urine Character Clear (Clear); Urine Color Yellow; Urine Glucose Negative (Negative); Urine Ketone Negative (Negative); Urine Leukocyte Negative (Negative); Urine Nitrite Negative (Negative); Urine Occult Blood Negative (Negative); Urine Specific Gravity 1.015 (<1.030); Urine Urobilinogen Negative (Neg - 1+)
== END ==
LOC: CLAB 10:26
PROVIDERS: ATTENDING PHYSICIAN Internal Medicine
DX: J96.11 Chronic respiratory failure with hypoxia (principal); F41.1 Generalized anxiety disorder; R30.0 Dysuria; N39.0 Urinary tract infection, site not specified
CPT/HCPCS: 81003; 87086

== ENCOUNTER → 2023-11-12 08:37 | Outpatient (REF) | payer MEDICARE, OTHER, SELFPAY ==
[2023-11-12 10:10] LABS: Blood Urea Nitrogen 18 mg/dl (9-20); Calcium 8.6 mg/dl (8.4-10.2); Carbon Dioxide 29 mmol/L (22-30); Chloride 104 mmol/L (98-107); Glucose 91 mg/dl (70-99); HDL Cholesterol 31 mg/dl; LDL Cholesterol, Calculated 115 mg/dl; Potassium 4.4 mmol/L (3.5-5.1); Sodium 141 mmol/L (135-145); Total Cholesterol 176 mg/dl (50-199); Triglyceride 153 mg/dl (10-149); Very Low Density Lipoprotein 30 mg/dl (0-30); eGFR > 60.00
== END ==
LOC: OLABPATH 08:37
PROVIDERS: ATTENDING PHYSICIAN Internal Medicine; REFERRING PHYSICIAN Internal Medicine Cardiovascular Disease
DX: I25.10 Atherosclerotic heart disease of native coronary artery without angina pectoris (principal); I10 Essential (primary) hypertension; E78.2 Mixed hyperlipidemia
CPT/HCPCS: 36415; 80048; 80061

== ENCOUNTER → 2023-11-18 10:53 | Outpatient (REF) | payer MEDICARE, OTHER, SELFPAY ==
[2023-11-18 11:35] LABS: Blood Urea Nitrogen 15 mg/dl (9-20); Calcium 8.9 mg/dl (8.4-10.2); Carbon Dioxide 30 mmol/L (22-30); Chloride 104 mmol/L (98-107); Glucose 89 mg/dl (70-99); HDL Cholesterol 30 mg/dl; LDL Cholesterol, Calculated 116 mg/dl; Potassium 4.2 mmol/L (3.5-5.1); Sodium 140 mmol/L (135-145); Total Cholesterol 176 mg/dl (50-199); Triglyceride 153 mg/dl (10-149); Very Low Density Lipoprotein 30 mg/dl (0-30); eGFR > 60.00
== END ==
LOC: OLABMERCHI 10:53
PROVIDERS: ATTENDING PHYSICIAN Internal Medicine
DX: I25.10 Atherosclerotic heart disease of native coronary artery without angina pectoris (principal); I10 Essential (primary) hypertension; E78.2 Mixed hyperlipidemia
CPT/HCPCS: 36415; 80048; 80061

== ENCOUNTER → 2023-11-21 11:58 | Outpatient (REF) | payer MEDICARE, OTHER, SELFPAY ==
[2023-11-21 12:45] LABS: ALT (SGPT) 33 U/L (0-50); AST (SGOT) 38 U/L (17-59); Albumin 3.6 g/dl (3.5-5.0); Alkaline Phosphatase 89 U/L (38-126); Direct Bilirubin 0.2 mg/dl (0.0-0.4); Total Bilirubin 0.3 mg/dl (0.2-1.3); Total Protein 6.1 g/dl (6.3-8.2)
== END ==
LOC: OLABPATH 11:58
PROVIDERS: ATTENDING PHYSICIAN Internal Medicine Cardiovascular Disease; FAMILY PHYSICIAN Internal Medicine
DX: E78.00 Pure hypercholesterolemia, unspecified (principal); R94.5 Abnormal results of liver function studies; Z79.01 Long term (current) use of anticoagulants; Z51.81 Encounter for therapeutic drug level monitoring
CPT/HCPCS: 36415; 80076

== ENCOUNTER → 2023-12-20 11:48 | Outpatient (REF) | payer MEDICARE, OTHER, SELFPAY ==
[2023-12-20 13:41] LABS: HIV Combo Negative (Negative)
[2023-12-20 13:49] LABS: Hepatitis B Core Ab, Total Reactive (Negative); Hepatitis C Antibody Reactive (Negative)
[2023-12-20 15:26] LABS: Hepatitis B Surface Antibody Indeterminate
[2023-12-22 19:10] LABS: HCV Quant by NAAT IU/mL Not Detected; HCV Quant by NAAT Interp Not Detected (Not Detected); HCV Quant by NAAT Log IU/mL Not Detected log IU/mL
== END ==
LOC: OLABPATH 11:48
PROVIDERS: ATTENDING PHYSICIAN Internal Medicine
DX: B19.20 Unspecified viral hepatitis C without hepatic coma (principal)
CPT/HCPCS: 36415; 86704; 86706; 86803; 87389; 87522; 87902

== ENCOUNTER 2024-02-04 21:12 | Inpatient (IN) | payer MEDICARE, OTHER, SELFPAY ==
[2024-02-04] VITALS (11 sets, daily range): BP systolic 92–146; BP diastolic 57–102; PULSE 2–94; BMI 22.4
--- NOTE | 2024-02-04 19:18 | ED.GENMED ---
History of Present Illness
General
Chief Complaint: Breathing Problem
Source: patient and [facility]
Exam Limitations: altered mental status
Time Seen by Provider: 02/04/24 19:06
History of Present Illness
History of Present Illness:
73-year-old male fever cough low pulse ox from a [facility] has COPD pulse ox in the 80s arrives on BiPAP. He is somnolent apparently has a DNR which I reviewed,
Past History
Past History
ED Past Medical History: CAD, GERD, HTN, Hypercholesterolemia, SD, Renal failure, Hypothyroidism, Psychiatric (Patient states he has dementia) and Other (Dementia)
ED Past Surgical History: Bowel resection, Cardiac and Orthopedic
Social History
Tobacco: Former smoker
Alcohol: None
Drug: None
Personal:
Living: assisted living
Employment: Retired
Family History
Family History: Other (Noncontributory)
Review of Systems
Review of Systems
Unable to obtain full review of systems at this time due to: due to acuity
All Other Systems: Not applicable
Phy Exam
Physical Exam
Physical Exam:
Physical Exam
General: Somnolent febrile male
Neck: No jaundice
Heart: s1/s2 regular rate and rhythm, no murmur. equal radial pulses.
Lungs: Wheezing rhonchi
Abdomen nontender
Neuro: Somnolent decreased responsive
Skin: no rash
Psychiatric: Unable to assess
Extremities: no edema.
Scores
Heart Failure Risk
Heart Failure Risk Score: Not Applicable
Sepsis
Sepsis Screening
Sepsis Assessment: Sepsis
Sepsis Screen
Sepsis Screen: Sepsis
Date: 02/05/24
Time: 00:38
Course
Orders/Labs/Results
Orders:
Orders
02/04/24 Breakfast
NPO
Allow oral meds: Yes
Allow clear liquids: Sips of Clears
02/04/24 19:01
Ipratropium/Albuterol Sulfate [Duoneb] 3 ml .ROUTE .STK-MED ONE
02/04/24 19:06
Electrocardiogram (*1) Urgent
Reason for Study: Shortness of Breath
02/04/24 19:07
EKG- Treatment ONCE
02/04/24 19:13
Complete Blood Count/With Diff Urgent
Comprehensive Metabolic Panel Urgent
Lactic Acid Urgent
Troponin I Urgent
02/04/24 19:16
IV Insert/Care/Rem.- Treatment PRN
Albuterol Nebs [Ventolin Nebules] 2.5 mg INH R NOW STA
Dexamethasone Sod Phosphate [Decadron] 10 mg IV NOW STA
02/04/24 19:17
Acetaminophen [Tylenol/Feverall] 650 mg RECTAL NOW STA
Albuterol Nebs [Ventolin Nebules] 2.5 mg .ROUTE .STK-MED ONE
CR Chest Portable - 1 View Urgent
Comment:
Reason For Exam: sob
Reason Study Needs to be Portable: Unable to Transport
Bipap [RESP] Urgent
Patient to use own unit?: No
Inspiratory Pressure (cm H2O): 12
Expiratory Pressure (cm H2O): 5
Peak Flow Rate [RESP] Urgent
Quantity: 1
Pre-Bronchodilator: Yes
Post Bronchodilator: Yes
Special Instructions: Pre and Post Peak Flow before and after Bronchodilator
02/04/24 19:52
COVID-19 Antigen Urgent
Source: Nasal Swab
Blood Culture Q30M
RAINER Source: Blood/Venous
Specimen Description:
Blood Culture Q30M
RAINER Source: Blood/Venous
Specimen Description:
Influenza A+B Rapid Molecular Urgent
RAINER Source: Nasal Swab
Specimen Description:
02/04/24 19:59
CefTRIAXone [Rocephin] 1,000 mg IV NOW STA
02/04/24 20:31
ABG [Arterial Blood Gas] Urgent
%Oxygen/Room Air: bipap
02/04/24 21:00
Admit/Transfer Patient As Directed
Co-Sign Provider:
Level of Care: Inpatient admission
Assign to:: IMU- Intermediate Care
Physician / Group: Zane
Diagnosis: Acute Hypoxemic Respiratory Failure, Pneumonia
Reason for Hospitalization: Acute Hypoxemic Respiratory Failure, Pneumonia
Expected length of stay greater than two midnights?: Yes
ELOS- Estimated Length of Stay in days: 4
I certify the patient meets the requirements for IP care: Yes
CT Head W/o Iv Contrast Urgent
Comment:
Reason For Exam: Change in Mental Status
PRN Pain Medication Management As Directed
May give lesser potent ordered pain med per pt: Yes
preference::
Protocol:: Medication orders for pain may be administered in a
manner that supports deferring to patient preference
when the pt is:
- Requesting an ordered lesser potent pain medication.
Least to most potent pain medications are defined
as: acetaminophen < NSAID < tramadol < opioids
(morphine, oxycodone, hydromorphone).
- Requesting a lesser dose of the same medication IF
ORDERED.
- Requesting a less intrusive route of administration
if both routes are prescribed by the provider (PO <
IV).
02/04/24 21:02
Code Status As Directed
Resuscitation Status: Do not resuscitate
Based on pt advanced directive or healthcare POA form: Yes
02/04/24 21:03
DNR Bracelet Application ONCE
02/04/24 22:16
Acetaminophen [Tylenol] 650 mg PO Q4HPRN PRN
Albuterol Nebs [Ventolin Nebules] 2.5 mg INH R Q4HPRN PRN
Atorvastatin [Lipitor] 20 mg PO HS
Lactated Ringers [Lr] 1,000 ml IV 100 mls/hr
Lorazepam [Ativan] 0.5 mg IV Q4HPRN PRN
Quetiapine Fumarate [Seroquel] 100 mg PO HS
Trazodone [Desyrel] 50 mg PO HS
02/04/24 22:16
TSH Reflex To Free T4 Routine
Activity As Directed
Activity Level: Bedrest
Bladder Scan As Directed
Follow Bladder Retention/Intermittent Cath Algorithm?: Yes
PRN if no void in __ hours: 6
Frequency: Per Retention Algorithm
If Bladder Scan Result >: 400
then:: Straight cath
EKG with chest pain [ECG as needed] As Directed
ECG as needed for:: Chest Pain
I/O [Intake/ Output] As Directed
Frequency: Per unit guidelines
Neurological Checks As Directed
Frequency: q4h
Precautions As Directed
Type of Precautions: Aspiration
Straight Cath As Directed
Frequency: Per Retention Algorithm
Additional Instructions: straight cath as needed per acute urinary retention algorithm for 24 hrs
Additional Instructions: for bladder scan greater than 400 mL
Vital Signs As Directed
Frequency: Per unit guidelines
Weight As Directed
Frequency: Daily
Chest PT [Rx Chest Pt] [RESP] Routine
Special Instructions: BID
Oxygen Therapy [O2 Therapy] [RESP] Routine
Titrate/Wean O2 to maintain O2 sat greater than (%): 94
Ot Eval And Treat Routine
PT Consult [Pt Eval And Treat] Routine
Activity Level: Ambulate
With Assistance
Speech Therapy Eval & Treat Routine
DX Deep Vein Thrombosis Video Routine
02/05/24 00:00
Doxycycline Hyclate [Vibramycin] 100 mg 0.9% Sodium Chloride 250 ml [Nss] 250 ml IV Q12H
02/05/24 06:00
EKG [Electrocardiogram (*1)] IN AM
Reason for Study: Chest Pain
Complete Blood Count/No Diff IN AM
Levothyroxine [Synthroid] 50 mcg PO DAILY@0600
02/05/24 08:00
Aspirin Chewable [Low Strength Aspirin] 81 mg PO DAILY
Escitalopram Oxalate [Lexapro] 20 mg PO DAILY
Ipratropium/Albuterol Sulfate [Duoneb] 3 ml INH R QID
Pantoprazole [Protonix] 40 mg PO DAILY
02/05/24 18:00
Enoxaparin Sodium [Lovenox] 40 mg SC QPM
02/05/24 20:00
CefTRIAXone [Rocephin] 1,000 mg IV Q24H
Abnormal Lab Results
02/04/24
19:13
WBC 13.4 H 10^3/uL
(4.8-10.8)
Abs Immat Gran (auto) 0.1 H 10^3/uL
(0-0.05)
Absolute Neuts (auto) 10.2 H 10^3/uL
(1.4-6.5)
Absolute Monos (auto) 1.3 H 10^3/uL
(0.1-0.6)
Neutrophils % 76.0 H %
(42.2-75.2)
Lymphocytes % 11.7 L %
(20.5-51.1)
Monocytes % 9.9 H %
(1.7-9.3)
BUN 27 H mg/dl
(9-20)
Glucose 158 H mg/dl
(70-99)
Total Bilirubin 1.4 H mg/dl
(0.2-1.3)
02/04/24 19:13
02/04/24 19:13
Vital Signs
Initial and Last Documented VS:
Initial Vital Signs
Temp Pulse Resp BP Pulse Ox
101.7 F H 94 19 145/68 94
02/04/24 18:58 02/04/24 18:58 02/04/24 18:58 02/04/24 18:58 02/04/24 18:58
Last Documented Vital Signs
Temp Pulse Resp BP Pulse Ox
99.6 F 69 22 110/57 91
02/04/24 22:41 02/05/24 00:00 02/05/24 00:00 02/05/24 00:00 02/05/24 00:00
MDM/Problems Addressed
Differential Diagnosis Includes:
COPD pneumonia hypercarbia heart failure influenza
MDM/Problems Addressed:
Shortness of breath fever
Chronic conditions affecting care: HTN and COPD
Acute Exacerbation and/or Progression of Chronic Illness: HTN and COPD
*Radiology
Radiology exam reviewed: preliminary read by ED provider
*Pulse Oximetry
Patient hypoxic: yes
*EKG
Interpreted by ED Provider?: Yes
Interpretation: abnormal
Comparison EKG: no comparison EKG present
Heart Rate: 78
Rate: normal
Rhythm: sinus
Ischemia: non-specific ST changes
*Real Property Appraiser Interpretation
Rate: normal
Interpretation: normal
Heart Rate: 78
*Critical Care Note
Total Time (30-74mins, 75-104mins- exclusive of procedures): 33
Update Note
Update Note:
Update chest x-ray noted will start on antibiotics empirically ABG pending reviewed with daughter, brought up CODE STATUS she was indecisive when I asked about intubation see what his blood gas looks
ED Attending Note
-
Portions of this chart may have been created with voice recognition software.� Occasional wrong word or��sound alike� substitutions may have occurred due to the inherent limitations of voice recognition software.
Discharge Plan
Departure
Patient Disposition: Admit
Date of Disposition: 02/04/24
Time of Disposition: 20:21
Admit to: IMU
Presentation/result/management discussed w/ accepting MD/DO: Hospitalist
Patient with high blood pressure during this ER visit?: No
Condition: Fair
Covid-19: Not Applicable
Discharge Problem:
Acute respiratory insufficiency
Interventions
Interventions:
*Risk Screen - Suicide Last Done: 02/04/24 22:26
*General Assessment Last Done: 02/04/24 20:21
*Neglect/Abuse Screening Last Done: 02/04/24 20:21
ED- Fall Risk Assessment Last Done: 02/04/24 20:21
*ED COVID-19 Vaccine History Last Done: 02/04/24 19:04
*Nursing Disposition Last Done: 02/04/24 22:26
ED- Cardiac Assessment Last Done: 02/04/24 20:21
ED- Pulmonary Assessment Last Done: 02/04/24 20:21
Discharge Date and Time
Discharge Date/Time: 02/04/24 22:27
[2024-02-04 19:20] LABS: % Basophils 0.4 % (0-2); % Eosinophils 1.6 % (0-6); % Immature Granulocytes 0.4 % (0-0.5); % Lymphocytes 11.7 % (20.5-51.1); % Monocytes 9.9 % (1.7-9.3); Absolute Basophils 0.1 10^3/uL (0-0.2); Absolute Eosinophils 0.2 10^3/uL (0-0.7); Absolute Immature Granulocytes 0.1 10^3/uL (0-0.05); Absolute Lymphocytes 1.6 10^3/uL (1.2-3.4); Absolute Monocytes 1.3 10^3/uL (0.1-0.6); Absolute Neutrophils 10.2 10^3/uL (1.4-6.5); Hematocrit 46.9 % (39.0-52.0); Hemoglobin 15.7 g/dL (13.0-18.0); Mean Corp Hgb Conc. 33.5 g/dL (33.0-37.0); Mean Corpuscular Volume 92.5 fL (80.0-94.0); Mean Platelet Volume 9.3 fL (7.4-10.4); Nucleated Red Blood Cells % 0 % (-); Platelet Count 224 10^3/uL (130-400); Red Blood Cell Count 5.07 10^6/uL (4.70-6.10); Red Cell Dist. Width 12.8 % (11.5-14.5); White Blood Cell Count 13.4 10^3/uL (4.8-10.8)
[2024-02-04 19:33] LABS: Lactic Acid 1.8 mmol/L (0.7-2.0)
[2024-02-04 19:37] LABS: ALT (SGPT) 27 U/L (0-50); AST (SGOT) 35 U/L (17-59); Albumin 4.1 g/dl (3.5-5.0); Alkaline Phosphatase 95 U/L (38-126); Blood Urea Nitrogen 27 mg/dl (9-20); Calcium 8.8 mg/dl (8.4-10.2); Carbon Dioxide 28 mmol/L (22-30); Chloride 99 mmol/L (98-107); Glucose 158 mg/dl (70-99); Potassium 3.7 mmol/L (3.5-5.1); Sodium 138 mmol/L (135-145); Total Bilirubin 1.4 mg/dl (0.2-1.3); Total Protein 7.2 g/dl (6.3-8.2); eGFR > 60.00
[2024-02-04 19:47] LABS: Troponin I < 0.012 ng/ml
[2024-02-04] MEDS: VENTOLIN NEBULES 2.5 MG INH (19:57)
[2024-02-04] MEDS: DECADRON 10 MG IV (19:57)
[2024-02-04] MEDS: TYLENOL/FEVERALL 650 MG RECTAL (20:01)
[2024-02-04] MEDS: ROCEPHIN 1000 MG IV (20:01)
[2024-02-04 20:19] LABS: COVID-19 Antigen Negative (Negative)
[2024-02-04 20:43] LABS: HCO3 27.3 mmol/L (21-28); O2 Saturation % 97.5 % (94-98); PCO2 44 mmHg (35-48); PO2 85 mmHg (83-108)
--- NOTE | 2024-02-04 21:09 | HPS.HSE ---
Family Physician
-
Family Physician: Balwinder Kumari
Chief Complaint
-
Cough / SOB
History of Present Illness
Patient is a 73y M with PMH significant for ASCVD, hypertension and dementia who presents to ED for evaluation of cough and hypoxemia. History obtained from ED staff, [place] record and discussion with daughter at the bedside.
Patient has somewhat chronic / intermittent cough which daughter states is not much changed of late. She saw him last about 24 hours ago and thought that he seemed at / near his usual baseline. Today at the [place], patient was noted to have paroxysms
of cough and became somnolent / poorly responsive. His oxygen saturation was reportedly in the 80s.
Patient was transported to the ED via EMS for further evaluation. He was started on CPAP therapy in the ambulance. This was changed to BiPAP here in the ED.
Medical History
Past Medical History
Past Medical History: Reports Other
Additional Past Medical History:
ASCVD
Hypertension
Chronic Hep C
Hypothyroidism
Senile Dementia
Gout
GERD
Anxiety / Depression
Chronic Hypoxemic Respiratory Insufficiency
Diverticular Disease
Past Surgical History: Reports Other
Additional Past Surgical History:
PTCA with Stents
Bowel Resection (diverticular disease)
RLE ORIF
Social History
Tobacco: Former Smoker (Quit smoking 40 years ago. Approx 10 pack years total use.)
Alcohol: Former (No alcohol in the past 10 years or so.)
Drug: None
Living: Intermediate
Family History
Family History: Not pertinent
Allergies / Home Medications
Allergies reflects when Allergies were last updated in [facility].
Home Medications with original date entered in [facility]
Allergy/Medication List:
Allergies
Allergy/AdvReac Type Severity Reaction Status Date / Time
No Known Allergies Allergy Verified 02/04/24 19:04
Home Medications
allopurinol 100 mg tablet 100 mg PO DAILY Gout 07/20/13
losartan 50 mg tablet 50 mg PO DAILY Blood Pressure 07/20/13
acetaminophen 325 mg tablet 650 mg PO Q4HPRN PRN mild pain 09/17/21
donepezil 10 mg tablet 10 mg PO HS Mental Health/Anxiety 09/17/21
quetiapine 100 mg tablet 100 mg PO HS Mental Health/Anxiety 09/17/21
escitalopram oxalate 20 mg tablet (Lexapro) 20 mg PO DAILY Mental Health/Anxiety 11/13/21
levothyroxine 50 mcg tablet (Synthroid) 50 mcg PO DAILY Thyroid 11/13/21
trazodone 50 mg tablet 50 mg PO HS Mental Health/Anxiety 11/13/21
albuterol sulfate 90 mcg/actuation aerosol inhaler 2 puff inhalation R Q6HPRN PRN shortness of breath or wheezing 07/25/23
ceramides 1,3,6-II 1 applic topical BIDPRN PRN dryness 07/25/23
esomeprazole magnesium 20 mg capsule,delayed release 40 mg PO DAILY Gastrointestinal Issue 07/25/23
mometasone 0.1 % topical cream 1 applic topical BIDPRN PRN psoriasis 07/25/23
vitamin B complex 2 cap PO DAILY Supplement 07/25/23
Lactobac no.2-Bifidobac no.1-S. thermo 112.5 billion cell capsule (Visbiome) 1 cap PO DAILY Supplement #0 caps 07/26/23
[place] Cough Drops 1 coy mucous membrane DAILYPRN PRN cough 08/21/23
loperamide 2 mg capsule 2 mg PO DAILYPRN PRN diarrhea 08/21/23
aspirin 81 mg chewable tablet 81 mg PO DAILY 02/04/24
atorvastatin 20 mg tablet 20 mg PO HS 02/04/24
montelukast 10 mg tablet 10 mg PO DAILY 02/04/24
Review of Systems
-
History Source: Family
A 12 point ROS was completed and negative except as noted: Yes
Constitutional: Reports Fatigue
Respiratory: Reports Cough and Trouble Breathing
Cardiac: Denies Chest Pain
Abdomen/GI: Denies Nausea, Vomiting or Diarrhea
Musculoskeletal: Denies Edema
Neurological: Denies Headache
Physical Exam
Vital Signs
Vital Signs
Temp Pulse Resp BP Pulse Ox
101.7 F H 94 22 145/68 96
02/04/24 18:58 02/04/24 19:26 02/04/24 19:26 02/04/24 19:00 02/04/24 19:26
Physical Exam
General: Other (73y M currently somnolent on BiPAP. Does not answer questions / follow commands. Starts to open eyes to loud voice.)
HEENT: Other (Thick neck, BiPAP in place.)
Respiratory: Other (Inspiratory wheezes diffusely. No rales / rhonchi.)
Cardiac: S1/S2 and Tachycardia; No Murmur
GI: Soft, Non Tender, Non Distended and Normal Bowel Sounds
Musculoskeletal: No Clubbing, No Cyanosis and No Edema
Neuro: Other (Somnolent.)
Laboratory Results
-
02/04/24 19:13
02/04/24 19:13
Laboratory Results
pH 7.40 (7.35-7.45) 02/04/24 20:31
pCO2 44 mmHg (35-48) 02/04/24 20:31
pO2 85 mmHg (83-108) 02/04/24 20:31
HCO3 27.3 mmol/L (21-28) 02/04/24 20:31
Lactic Acid Cancelled 02/04/24 23:30
Total Bilirubin 1.4 mg/dl (0.2-1.3) H 02/04/24 19:13
AST 35 U/L (17-59) 02/04/24 19:13
ALT 27 U/L (0-50) 02/04/24 19:13
Alkaline Phosphatase 95 U/L (38-126) 02/04/24 19:13
Troponin I < 0.012 ng/ml 02/04/24 19:13
Impression/Plan
-
A/P: Patient is a 73y M with PMH significant for ASCVD, hypertension and chronic hypoxemia who presents to ED from local [place] for evaluation of cough and hypoxemia.
Atypical Pneumonia
Sepsis secondary to the above
Acute on Chronic Hypoxemic Respiratory Failure secondary to the above
Acute TME secondary to the above
- Admit for further evaluation and treatment.
- Patient presents with fever, tachycardia, tachypnea and leukocytosis with respiratory symptoms and abnormal CXR.
- X-ray with increased interstitial markings - more likely c/w atypical pneumonia than volume overload given clinical presentation.
- COVID and Influenza negative in the ED.
- IV abx for now. Follow-up culture data, fever curve, clinical progress.
- IVF support.
- ABG done without evidence of significant hypercapnia, etc
- Check CT now - but suspect TME is secondary to sepsis.
- Speech eval to rule out potential aspiration.
Possible COPD
- No formal diagnosis; however, patient was discharged with chronic O2 after his most recent visit here.
- Nebs ATC and PRN.
- Remote and fairly minimal smoking history.
- Consider formal PFTs as an outpatient after acute issues are resolved.
ASCVD
- Stable. Continue ASA, statin, etc.
Benign Hypertension
- Stable. Hold BP medications acutely with sepsis.
Hypothyroidism
- Stable. Continue T4 supplementation.
Senile Dementia
Mood Disorder
- Continue current psychotropic med regimen.
- Ativan PRN for breakthrough agitation / anxiety.
Hep C - Chronic
- Unknown treatment history.
DVT Prophylaxis: Lovenox
Code Status: DNR
[2024-02-04] MEDS: LIPITOR PO (22:48)
[2024-02-04] MEDS: SEROQUEL PO (22:48)
[2024-02-04] MEDS: LR 1000 IV (22:51)
[2024-02-04] MEDS: VIBRAMYCIN 260 MG IV (23:38)
[2024-02-05] VITALS (28 sets, daily range): BP systolic 101–151; BP diastolic 57–121; PULSE 2–83; O2SAT 98
--- NOTE | 2024-02-05 00:05 | W.PN.UPDATE ---
Addendum entered and electronically signed by ROSE Mancuso 02/05/24 04:32:
daughter aware his living will states DNR
Original Note:
Update Note
Progress Note Update
On arrival to unit RN stated daughter would like to change code status from DNR to Full code.
Spoke on phone with daughter Mily. She stated that in the event of cardiac or respiratory arrest she is agreeable for pt to receive cpr and intubation. Code status changed per wishes..
Pt remains somnolent on bipap. pulse of 95%
--- NOTE | 2024-02-05 00:41 | PTCARENOTE ---
pt admitted from the ED, pt is barely responsive, responds to painful stimuli. daughter at bedside to help with admission questions. on bipap 12/5 8L o2- 94%. condom cath #30 applied. explained to daughter about DNR status, pt stating that she would
want cpr done despite patient living will. notified Isabel ROSE who spoke with daughter. patient code status changed to full code. care ongoing.
[2024-02-05] MEDS: SYNTHROID PO (04:11)
[2024-02-05 05:16] LABS: Hematocrit 43.8 % (39.0-52.0); Hemoglobin 14.8 g/dL (13.0-18.0); Mean Corp Hgb Conc. 33.8 g/dL (33.0-37.0); Mean Corpuscular Hgb 31.2 pg (27.0-31.0); Mean Corpuscular Volume 92.2 fL (80.0-94.0); Mean Platelet Volume 9.2 fL (7.4-10.4); Platelet Count 193 10^3/uL (130-400); Red Blood Cell Count 4.75 10^6/uL (4.70-6.10); Red Cell Dist. Width 12.6 % (11.5-14.5); White Blood Cell Count 11.3 10^3/uL (4.8-10.8)
[2024-02-05 05:33] LABS: ALT (SGPT) 25 U/L (0-50); AST (SGOT) 33 U/L (17-59); Albumin 3.4 g/dl (3.5-5.0); Alkaline Phosphatase 70 U/L (38-126); Blood Urea Nitrogen 29 mg/dl (9-20); Calcium 8.6 mg/dl (8.4-10.2); Carbon Dioxide 26 mmol/L (22-30); Chloride 104 mmol/L (98-107); Direct Bilirubin 0.4 mg/dl (0.0-0.4); Estimated Creatinine Clearance 91 ml/min; Glucose 174 mg/dl (70-99); Potassium 4.5 mmol/L (3.5-5.1); Sodium 137 mmol/L (135-145); Total Protein 6.3 g/dl (6.3-8.2); eGFR > 60.00
[2024-02-05 06:13] LABS: TSH Reflex To Free T4 0.12 uIU/ml (0.47-4.68)
[2024-02-05 06:41] LABS: Free T4 1.03 ng/dl (0.78-2.19)
[2024-02-05] MEDS: DUONEB 3 ML INH ×4 (07:40→19:21)
--- NOTE | 2024-02-05 09:30 | PTCARENOTE ---
Dr. Marinelli made aware of patient having generalized body tremors. Patients daughter stated that 'he always has them but when he is in the hospital the body tremors are worse'. Care ongoing at this time.
[2024-02-05] MEDS: LEXAPRO 20 MG PO (10:43)
[2024-02-05] MEDS: LOW STRENGTH ASPIRIN 81 MG PO (10:43)
[2024-02-05] MEDS: PROTONIX 40 MG PO (10:44)
--- NOTE | 2024-02-05 11:00 | PTOTSP ---
Speech Therapy Evaluation:
Pt presents with clinical signs of oropharyngeal dysphagia, likely chronic in nature related to PMH of Dementia, GERD, and chronic hypoxemic respiratory insufficiency, compounded by increased congestion/cough and respiratory demand (supplemental
O2). Pt remains at an increased risk of aspiration and related complications given level of fatigue and tenuous respiratory status. Pt also at risk for post prandial aspiration given history of GERD, hiatal hernia, and Schatzki ring. No overt s/sx
of aspiration observed with ice chips, thin liquids via tsp/straw, or pureed solids.
Recommend:
1. Initiate CAUTIOUS IDDSI Level 4 (pureed) diet and thin liquids
2. Medications as tolerated
3. d/c oral diet if change in respiratory status, worsening in CXR, or concern for aspiration
4. Aspiration and reflux precautions: upright all meals, small bites/sips, liquid wash, slow rate, upright for at least 30 minutes following meals
5. Assistance and supervision with PO intake
6. ST to follow
--- NOTE | 2024-02-05 11:34 | CM ---
Addendum entered by Mira Villela 02/05/24 14:23:
PT recommends SNF when stable for discharge. Costume Cutter discussed recommendation with patient's daughter via phone; she was agreeable. Facility options reviewed; referrals sent to preferences: [facility], [facility], [facility]
Plan: discharge to SNF pending bed availability when medically stable
Original Note:
Initial Assessment completed via phone with patient's daughter, Mily Rodriguez
Patient resides at [facility]; one bedroom with toilet/sink; community showers
PLOF: daughter reported he ambulates with [facility]; needs assistance with personal care/toileting/bathing; he is able to feed self; facility able to provide PT/OT if needed
Local Pharmacy verified: [facility] @ [address]
SNF utilization in 2021; Home Health 2021 w/ VNA
Daughter will transport when stable for discharge
Plan: when medically stable, patient will return to [facility]
[2024-02-05] MEDS: LR IV (11:47)
[2024-02-05 11:59] LABS: NT-proBNP 233 pg/ml
--- NOTE | 2024-02-05 12:10 | W.PN.HOSP.TC ---
Addendum entered and electronically signed by Pedro Marinelli MD 02/05/24 12:26:
Trial of IV access should read as 'IV Lasix.'
Original Note:
Today's Communication/Plan
-
CT chest
ECHO
Procal
puree diet
stop IVF
wean o2
Assessment / Plan
Assessment / Plan
A/P: Patient is a 73y M with PMH significant for ASCVD, hypertension and chronic hypoxemia who presents to ED from local [place] for evaluation of cough and hypoxemia.
Sepsis likely secondary to pneumonia (viral vs. bacterial) Versus bacteremia
Acute on Chronic Hypoxemic Respiratory Failure secondary to the above
Acute TME secondary to the above-back to baseline
- Patient presents with fever, tachycardia, tachypnea and leukocytosis with respiratory symptoms
- COVID and Influenza negative in the ED.
- IV abx for now. Follow-up culture data, fever curve, clinical progress. Check procalcitonin
- ABG done without evidence of significant hypercapnia, etc
- CT head negative for acute pathology.
- Speech eval to rule out potential aspiration. Pur�ed diet.
- Off BiPAP transition patient nasal cannula. Currently at 4 L.
- proBNP 233. Will check echocardiogram. Check CT of the chest without contrast. Trial of IV Lasix.
Pulmonary congestion
-Iatrogenic due to fluid overload versus cardiac related. Unclear etiology. Check echocardiogram. Trial of IV access.
Dysphagia
-Start patient on pur�ed diet with thin liquids.
Possible COPD
- No formal diagnosis; however, patient was discharged with chronic O2 after his most recent visit here.
- Nebs ATC and PRN.
- Remote and fairly minimal smoking history.
- Consider formal PFTs as an outpatient after acute issues are resolved.
CAD status post stents x 2
- Stable. Continue ASA, statin, etc. last stent was in 2007. Patient cardiology at [facility].
Benign Hypertension
- Stable. Hold BP medications acutely with sepsis.
Hypothyroidism
- Stable. Continue T4 supplementation.
Senile Dementia
Mood Disorder
- Restart Seroquel and trazodone once improvement and respiratory status. Can be restarted sooner if requires
Hep C - Chronic
- Unknown treatment history.
DVT Prophylaxis: Lovenox
Code Status: CODE STATUS switched to full code per daughter
Discussed with patient daughter at bedside in details
Anticipated Discharge: > 48 hours
Subjective/Interval History
-
Date of Service: February 05, 2024
Pt awake
states of anxiety while in hospital
has intermittent body twitch-which per daughter at bedside happens everytime when patient is in hospital
taken off bipap and now on 4L oxygen
Objective Data
-
Labs:
Laboratory Results
02/05/24
04:53
WBC 11.3 H
Hgb 14.8
Hct 43.8
Plt Count 193
Sodium 137
Potassium 4.5
Chloride 104
Carbon Dioxide 26
BUN 29 H
Creatinine 0.7
Glucose 174 H
Calcium 8.6
Total Bilirubin 1.0
AST 33
ALT 25
Alkaline Phosphatase 70
Vital Signs:
Vital Signs
Temp Pulse Resp BP Pulse Ox
97.7 F 76 16 151/121 94
02/05/24 11:05 02/05/24 11:31 02/05/24 11:31 02/05/24 11:00 02/05/24 11:31
Physical Exam
-
General: Well Developed, Well Nourished, No Apparent Distress and Comfortable; Negative Respiratory Distress
HEENT: Normocephalic, Atraumatic and Oxygen
Respiratory: Rhonchi and Non Labored Respirations; Negative Accessory Resp Muscle Use
Cardiac: Regular Rhythm and S1/S2; Negative Murmur
GI: Soft, Nontender, Nondistended and Normal Bowel Sounds
Musculoskeletal: No Clubbing, No Cyanosis and No Edema
Neuro: Awake
Psych: Calm and Apparent Dementia
Data Reviewed
-
Total Time Spent with Patient (in minutes): 58
[2024-02-05 13:34] LABS: Procalcitonin < 0.05 ng/ml (0.0-0.25)
[2024-02-05] MEDS: LASIX 20 MG IV (13:34)
[2024-02-05] MEDS: VIBRAMYCIN 260 MG IV (13:34)
--- NOTE | 2024-02-05 16:17 | PTCARENOTE ---
Patient AOx1. Patient confused to time and place. Patient forgetful. Bed alarm on and audible. Patient weaned to 4L NC with SpO2 greater than 92%. Insp and exp wheezes and coarse lung sounds. Patient incontinent to bowel and bladder. Condom cath
draining yellow urine. NSR with prolonged QT and first degree on monitor. VSS. IDDSI 4 per speech eval. Call dowling within reach, bed in lowest position, and bed wheels locked.
[2024-02-05] MEDS: LOVENOX 40 MG SC (17:07)
[2024-02-05] MEDS: STERILE WATER FOR INJECTION 10 ML IV (20:03)
[2024-02-05] MEDS: ROCEPHIN 1000 MG IV (20:03)
[2024-02-05] MEDS: LIPITOR 20 MG PO (20:03)
--- NOTE | 2024-02-05 20:56 | PTCARENOTE ---
pt tele level of care. report given to Isaac LIEBERMAN. transferred to [facility] without issues. all belongings with patient.
[2024-02-06] MEDS: VIBRAMYCIN 260 MG IV ×2 (00:22→12:37)
[2024-02-06 03:40] VITALS: BP 95/62
[2024-02-06] MEDS: SYNTHROID 50 MCG PO (05:43)
[2024-02-06 06:00] VITALS: BMI 22.1
[2024-02-06 07:00] VITALS: BP 152/66
[2024-02-06] MEDS: DUONEB 3 ML INH ×4 (07:08→19:44)
[2024-02-06 08:00] LABS: Blood Urea Nitrogen 30 mg/dl (9-20); Calcium 8.9 mg/dl (8.4-10.2); Carbon Dioxide 27 mmol/L (22-30); Chloride 103 mmol/L (98-107); Estimated Creatinine Clearance 90 ml/min; Glucose 87 mg/dl (70-99); Potassium 4.3 mmol/L (3.5-5.1); Sodium 139 mmol/L (135-145); eGFR > 60.00
[2024-02-06] MEDS: LEXAPRO 20 MG PO (08:02)
[2024-02-06] MEDS: PROTONIX 40 MG PO (08:02)
[2024-02-06] MEDS: LOW STRENGTH ASPIRIN 81 MG PO (08:02)
[2024-02-06 08:19] LABS: % Basophils 0.2 % (0-2); % Immature Granulocytes 0.4 % (0-0.5); % Lymphocytes 6.4 % (20.5-51.1); % Monocytes 5.7 % (1.7-9.3); % Neutrophils 87.3 % (42.2-75.2); Absolute Lymphocytes 0.7 10^3/uL (1.2-3.4); Absolute Monocytes 0.6 10^3/uL (0.1-0.6); Absolute Neutrophils 9.6 10^3/uL (1.4-6.5); Hemoglobin 14.8 g/dL (13.0-18.0); Mean Corp Hgb Conc. 32.9 g/dL (33.0-37.0); Mean Corpuscular Hgb 30.4 pg (27.0-31.0); Mean Corpuscular Volume 92.4 fL (80.0-94.0); Mean Platelet Volume 9.7 fL (7.4-10.4); Nucleated Red Blood Cells % 0 % (-); Platelet Count 250 10^3/uL (130-400); Red Blood Cell Count 4.87 10^6/uL (4.70-6.10); Red Cell Dist. Width 12.5 % (11.5-14.5)
[2024-02-06 11:00] VITALS: BP 138/72
--- NOTE | 2024-02-06 11:41 | W.PN.HOSP.TC ---
Addendum entered and electronically signed by Pedro Marinelli MD 02/06/24 11:56:
Updated daughter Mily over the phone in detail.
Original Note:
Today's Communication/Plan
-
trial of steroids
cont abx for now
Await CT chest
no IVF
Assessment / Plan
Assessment / Plan
A/P: Patient is a 73y M with PMH significant for ASCVD, hypertension and chronic hypoxemia who presents to ED from local [place] for evaluation of cough and hypoxemia.
Sepsis likely secondary to pneumonia (viral vs. bacterial)
Acute on Chronic Hypoxemic Respiratory Failure 3L prn at [facility] secondary to the above
Acute TME secondary to the above-back to baseline
- Patient presents with fever, tachycardia, tachypnea and leukocytosis with respiratory symptoms
- COVID and Influenza negative in the ED.
- IV abx for now. Follow-up culture data, fever curve, clinical progress.
- ABG done without evidence of significant hypercapnia, etc
- CT head negative for acute pathology.
- Speech eval to rule out potential aspiration. Pur�ed diet.
- Off BiPAP transition patient nasal cannula. Currently at 4 L.
- CT chest non contrast pending
Pulmonary congestion
-Iatrogenic due to fluid overload versus cardiac related. Unclear etiology.
-Underfilled left ventricle with hyperdynamic systolic function. LVEF 65-70%. Normal right ventricular size and function. No significant valvular disease. Right heart pressures could not be estimated.
Dysphagia
-Start patient on pur�ed diet with thin liquids.
Acute COPD exacerbation
- No formal diagnosis; however, patient was discharged with chronic O2 after his most recent visit here.
- Nebs ATC and PRN. and start IV steroids.
- Remote and fairly minimal smoking history.
- Consider formal PFTs as an outpatient after acute issues are resolved.
CAD status post stents x 2
- Stable. Continue ASA, statin, etc. last stent was in 2007. Patient cardiology at [facility].
Benign Hypertension
- Stable. Hold BP medications acutely with sepsis.
Hypothyroidism
- Stable. Continue T4 supplementation.
Senile Dementia
Mood Disorder
- Restart Seroquel and monitor mentation.
- Can eventual dementia
Hep C - Chronic
- Unknown treatment history.
DVT Prophylaxis: Lovenox
Code Status: CODE STATUS switched to full code per daughter
Anticipated Discharge: > 48 hours
Subjective/Interval History
-
Date of Service: February 06, 2024
remains on oxygen
states of nasal congestion and intermittent cough
Objective Data
-
Labs:
Laboratory Results
02/06/24
06:47
WBC 11.0 H
Hgb 14.8
Hct 45.0
Plt Count 250 D
Sodium 139
Potassium 4.3
Chloride 103
Carbon Dioxide 27
BUN 30 H
Creatinine 0.7
Glucose 87
Calcium 8.9
Vital Signs:
Vital Signs
Temp Pulse Resp BP Pulse Ox
97.9 F 92 20 152/66 98
02/06/24 07:00 02/06/24 07:12 02/06/24 07:12 02/06/24 07:00 02/06/24 08:00
I&O
02/05/24 02/06/24 02/07/24
06:59 06:59 06:59
Intake Total 480 / 480
Output Total 550 / 550
Balance -70 / -70
Physical Exam
-
General: Well Developed, Well Nourished, No Apparent Distress and Comfortable; Negative Respiratory Distress
HEENT: Normocephalic, Atraumatic and Oxygen
Respiratory: Rhonchi and Non Labored Respirations; Negative Accessory Resp Muscle Use
Cardiac: Regular Rhythm and S1/S2; Negative Murmur
GI: Soft, Nontender, Nondistended and Normal Bowel Sounds
Musculoskeletal: No Clubbing, No Cyanosis and No Edema
Neuro: Awake
Psych: Calm and Apparent Dementia
Data Reviewed
-
Total Time Spent with Patient (in minutes): 55
[2024-02-06] MEDS: DECADRON 4 MG IV (12:37)
[2024-02-06 15:00] VITALS: BP 155/80
[2024-02-06] MEDS: LOVENOX 40 MG SC (17:26)
[2024-02-06 19:45] VITALS: BP 156/74
[2024-02-06] MEDS: ROCEPHIN 1000 MG IV (19:47)
[2024-02-06] MEDS: STERILE WATER FOR INJECTION 10 ML IV (19:47)
[2024-02-06] MEDS: SEROQUEL 100 MG PO (19:48)
[2024-02-06] MEDS: LIPITOR 20 MG PO (19:48)
[2024-02-06 23:39] VITALS: BP 151/74
[2024-02-07] VITALS (8 sets, daily range): BP systolic 99–192; BP diastolic 68–113; BMI 22.2
[2024-02-07] MEDS: VIBRAMYCIN 260 MG IV ×3 (00:03→23:22)
[2024-02-07] MEDS: DECADRON 4 MG IV ×3 (00:04→23:21)
--- NOTE | 2024-02-07 03:57 | PTCARENOTE ---
Addendum entered by Keren Felix RN 02/07/24 05:21:
No intervention ordered at that time. Repeat b/p in 1 hr.
Original Note:
b/p 170's/90's Vince ramos notified
[2024-02-07] MEDS: SYNTHROID 50 MCG PO (05:15)
--- NOTE | 2024-02-07 05:22 | PTCARENOTE ---
Addendum entered by Keren Felix RN 02/07/24 05:59:
hydralazine 5mg IVP ordered and given
Original Note:
Repeat b/p 192/113-76. Manual b/p's confirmed 180's-190;s/100's on both arms. Phyllis Cuenca notified
--- NOTE | 2024-02-07 05:29 | W.PN.UPDATE ---
Update Note
Progress Note Update
BP trended up this am to 192/113, hr 76. Per nursing staff no pain reported or other symptoms noted. One time order of hydralazine 5mg was placed
[2024-02-07] MEDS: APRESOLINE 5 MG IV (05:42)
[2024-02-07] MEDS: DUONEB 3 ML INH ×4 (07:49→20:09)
[2024-02-07 08:25] LABS: % Basophils 0.3 % (0-2); % Immature Granulocytes 2.3 % (0-0.5); % Monocytes 3.9 % (1.7-9.3); % Neutrophils 85.5 % (42.2-75.2); Absolute Immature Granulocytes 0.2 10^3/uL (0-0.05); Absolute Lymphocytes 0.9 10^3/uL (1.2-3.4); Absolute Monocytes 0.4 10^3/uL (0.1-0.6); Absolute Neutrophils 9.1 10^3/uL (1.4-6.5); Hematocrit 46.2 % (39.0-52.0); Hemoglobin 15.4 g/dL (13.0-18.0); Mean Corp Hgb Conc. 33.3 g/dL (33.0-37.0); Mean Corpuscular Hgb 30.7 pg (27.0-31.0); Mean Corpuscular Volume 92.2 fL (80.0-94.0); Mean Platelet Volume 9.6 fL (7.4-10.4); Nucleated Red Blood Cells % 0 % (-); Platelet Count 256 10^3/uL (130-400); Red Blood Cell Count 5.01 10^6/uL (4.70-6.10); Red Cell Dist. Width 12.5 % (11.5-14.5); White Blood Cell Count 10.6 10^3/uL (4.8-10.8)
[2024-02-07 09:02] LABS: Blood Urea Nitrogen 22 mg/dl (9-20); Calcium 9.2 mg/dl (8.4-10.2); Carbon Dioxide 25 mmol/L (22-30); Chloride 103 mmol/L (98-107); Estimated Creatinine Clearance 90 ml/min; Glucose 114 mg/dl (70-99); Potassium 4.3 mmol/L (3.5-5.1); Sodium 139 mmol/L (135-145); eGFR > 60.00
[2024-02-07] MEDS: LOW STRENGTH ASPIRIN 81 MG PO (09:30)
[2024-02-07] MEDS: LEXAPRO 20 MG PO (09:30)
[2024-02-07] MEDS: PROTONIX 40 MG PO (09:30)
--- NOTE | 2024-02-07 09:57 | CON.PUL ---
Consultation
Consultation Request
Date/Time Consultation Requested: 02/07/2024-8 AM
Date/Time Consultation Performed: 02/07/2024-8:30 AM
Requesting Provider: Hospitalist
Performing Provider: Dr. Perkins
Reason for Consultation: Shortness of breath
Medical History
-
Chief Complaint: Shortness of breath
History of Present Illness:
73-year-old male former smoker with underlying CAD, hypertension and dementia [facility] for shortness of breath/hypoxemia 02/07/2024. Patient states that he has some mild chest
congestion, producing 'globs of lockwood sputum', but denies any chest pain, chest tightness, wheezing, pleurisy, abdominal pain, nausea, or leg swelling.
Past Medical History
Past Medical History: None (CAD/stents. Hypertension. Hepatitis C. Hypothyroid. Dementia. Gout. GERD. Anxiety/depression. Diverticular disease. Bowel resection. Ortho-right lower extremity.)
Social History
Tobacco: Former Smoker (Quit 36 years ago-approximately 03-gimd-cgol smoking history)
Alcohol: None (For the last 10 years)
Drug: None
Living: [facility]
Occupational Exposures: No known asbestos exposure
Environmental Exposures: no known tuberculosis exposure
Family History
Family History: Reviewed & Not Pertinent
Allergies / Home Medications
Allergies
Allergy/AdvReac Type Severity Reaction Status Date / Time
No Known Allergies Allergy Verified 02/04/24 19:04
Home Medications
�Medication �Instructions �Recorded �Confirmed �Last Taken �Type
allopurinol 100 mg tablet 100 mg PO DAILY Gout 07/20/13 02/04/24 10/20/21 History
losartan 50 mg tablet 50 mg PO DAILY Blood Pressure 07/20/13 02/04/24 10/20/21 History
acetaminophen 325 mg tablet 650 mg PO Q4HPRN PRN mild pain 09/17/21 02/04/24 10/20/21 History
donepezil 10 mg tablet 10 mg PO HS Mental Health/Anxiety 09/17/21 02/04/24 10/20/21 History
quetiapine 100 mg tablet 100 mg PO HS Mental Health/Anxiety 09/17/21 02/04/24 10/20/21 History
escitalopram oxalate 20 mg tablet 20 mg PO DAILY Mental 11/13/21 02/04/24 Unknown History
(Lexapro) Health/Anxiety
levothyroxine 50 mcg tablet 50 mcg PO DAILY Thyroid 11/13/21 02/04/24 Unknown History
(Synthroid)
trazodone 50 mg tablet 50 mg PO HS Mental Health/Anxiety 11/13/21 02/04/24 Unknown History
albuterol sulfate 90 mcg/actuation 2 puff inhalation R Q6HPRN PRN 07/25/23 02/04/24 Unknown History
aerosol inhaler shortness of breath or wheezing
ceramides 1,3,6-II 1 applic topical BIDPRN PRN dryness 07/25/23 02/04/24 Unknown History
esomeprazole magnesium 20 mg 40 mg PO DAILY Gastrointestinal 07/25/23 02/04/24 Unknown History
capsule,delayed release Issue
mometasone 0.1 % topical cream 1 applic topical BIDPRN PRN 07/25/23 02/04/24 Unknown History
psoriasis
vitamin B complex 2 cap PO DAILY Supplement 07/25/23 02/04/24 Unknown History
Lactobac no.2-Bifidobac no.1-S. 1 cap PO DAILY Supplement #0 caps 07/26/23 02/04/24 Unknown Rx
thermo 112.5 billion cell capsule
(Visbiome)
Mchenry Cough Drops 1 coy mucous membrane DAILYPRN PRN 08/21/23 02/04/24 Unknown History
cough
loperamide 2 mg capsule 2 mg PO DAILYPRN PRN diarrhea 08/21/23 02/04/24 Unknown History
aspirin 81 mg chewable tablet 81 mg PO DAILY Blood Clot 02/04/24 02/04/24 Unknown History
Prevention/Tx
atorvastatin 20 mg tablet 20 mg PO HS High Cholesterol 02/04/24 02/04/24 Unknown History
montelukast 10 mg tablet 10 mg PO DAILY asthma 02/04/24 02/04/24 Unknown History
Review of Systems
-
Unable to Obtain full review of systems at this time due to: Other (Per HPI)
Vitals / Labs / Diagnostic Testing
Vital Signs
Temp Pulse Resp BP Pulse Ox
98.7 F 77 20 167/90 95
02/07/24 07:35 02/07/24 07:52 02/07/24 07:52 02/07/24 07:35 02/07/24 07:52
Lab Data
02/07/24 07:41
02/07/24 07:41
Microbiology
02/04/24 19:52 Blood/Venous Blood Culture - Preliminary
No Growth in 48 hours- Final report to follow
02/04/24 19:52 Blood/Venous Blood Culture - Preliminary
No Growth in 48 hours- Final report to follow
02/05/24 09:28 Nose MRSA Screen - Final
No Methicillin Resistant Staphylococcus aureus isolated.
02/04/24 19:52 Nasal Swab Influenza Types A & B (SULLY) - Final
Negative for Influenza A & B, NAAT
Negative results must be combined with clinical observations
and patient history.
Nucleic Acid Amplification test (NAAT)performed on the
[employer] platform.
Diagnostic Testing:
Physical Exam
-
Exam:
Well-nourished and well-developed in no apparent distress
HEENT-atraumatic, normocephalic
Neck-supple, no JVD, no bruit
Heart-regular rate and rhythm-no murmurs, rubs or gallops
Chest with diminished breath sounds, prolonged expiratory time, rare basilar crackles and forced wheezes
Back without tenderness
Abdomen-soft, nontender, nondistended, no hepatosplenomegaly
Extremities-no cyanosis, clubbing, edema and good peripheral pulses
Integument-intact, no rashes, lesions or ecchymosis
Neurology-alert, moving all extremities
Assessment
-
73-year-old male former smoker with underlying CAD, hypertension and dementia [facility] for shortness of breath/hypoxemia 02/07/2024.
Pneumonia-atypical versus aspiration
Hypoxemic respiratory failure
Toxic metabolic encephalopathy
COPD suspected
Aspiration risk
Leukocytosis
Mild hyperglycemia
Conditions present prior to admission:
CAD/stents.
Hypertension.
Hepatitis C.
Hypothyroid.
Dementia.
Gout.
GERD.
Former smoker
Bilateral calcified pleural plaques-suspected asbestos exposure
Anxiety/depression.
Diverticular disease.
Bowel resection. Ortho-right lower extremity.
Plan
Respiratory decompensation likely due from underlying mild lung disease, possible aspiration, atypical pneumonia and less likely volume overload with normal echo
Supplemental oxygen as needed
Aspiration precautions
Speech therapy following-correspondence 02/05/2024 reviewed-level 4 pur�ed diet with thin liquids
DuoNebs continue
Decadron 4 mg IV every 12 hours
Singulair continues
Mucus clearing devices if needed
Check cultures
MRSA screening negative
Influenza negative
COVID negative
Blood cultures negative
Sputum culture if able to produce
Empiric antibiotics-ceftriaxone and doxycycline for atypicals
DVT prophylaxis-on Lovenox
Nutrition
Early mobilization
Reviewed with nursing
Diagnostic data:
Chest x-ray 07/21/2013-NAD
Chest x-ray 08/13/2021-NAD
Chest x-ray 07/25/2023-NAD
Chest x-ray 02/04/2024-mild congestive heart failure
CT chest 07/24/2023-NAD, small amount of atelectasis or scarring in the lingula and anterior left lower lobe,
CT chest 02/05/2024-patchy parenchymal opacifications in both lungs mainly in the dependent portions new since July 2023 mainly due to atelectasis also component of patchy groundglass opacifications suggesting possible interstitial pneumonitis,
bilateral pleural plaques
Echocardiogram 02/05/2024-EF 65-70%, no valvular disease
Data Reviewed
-
PFT: Report reviewed by me
EKG: Report reviewed by me
Radiology: Image personally visualized and interpreted and Report reviewed by me
CT Scan: Image personally visualized and interpreted and Report reviewed by me
Medical Tests (Nuc Med, Echo etc): Report reviewed by me
Labs: Labs reviewed by me
Old Records: Reviewed
Total Time Spent with Patient (in minutes): 65
[2024-02-07] MEDS: VISBIOME 1 CAP PO (10:07)
[2024-02-07] MEDS: COZAAR 50 MG PO (10:07)
[2024-02-07] MEDS: ZYLOPRIM 100 MG PO (10:10)
--- NOTE | 2024-02-07 11:21 | W.PN.HOSP.TC ---
Today's Communication/Plan
-
Complete antibiotics fininite course
Short course of steroids
Wean oxygen to baseline
Monitor blood pressure
Assessment / Plan
Assessment / Plan
A/P: Patient is a 73y M with PMH significant for ASCVD, hypertension and chronic hypoxemia who presents to ED from local [place] for evaluation of cough and hypoxemia.
Sepsis likely secondary to pneumonia (viral vs. bacterial) versus aspiration pneumonitis versus interstitial pneumonitis
Acute on Chronic Hypoxemic Respiratory Failure 3L prn at [place] secondary to the above
Acute TME secondary to the above-back to baseline
- Patient presents with fever, tachycardia, tachypnea and leukocytosis with respiratory symptoms
- COVID and Influenza negative in the ED.
- IV abx for now. Follow-up culture data, fever curve, clinical progress.
- ABG done without evidence of significant hypercapnia, etc
- CT head negative for acute pathology.
- Speech eval to rule out potential aspiration. Pur�ed diet.
- Off BiPAP transition patient nasal cannula. Currently at 4 L.
- CT chest non contrast component of patchy groundglass opacity throughout both lungs, which would suggest a component of interstitial pneumonitis.
- Decadron 4 mg every 12 for now with quick taper.
- Will ask pulm to eval for GGO/interstitial pneumonitis
Pulmonary congestion
-Iatrogenic due to fluid overload
-Underfilled left ventricle with hyperdynamic systolic function. LVEF 65-70%. Normal right ventricular size and function. No significant valvular disease. Right heart pressures could not be estimated.
Dysphagia
-Start patient on pur�ed diet with thin liquids.
Acute COPD exacerbation
- No formal diagnosis; however, patient was discharged with chronic O2 after his most recent visit here.
- Nebs ATC and PRN. and start IV steroids.
- Remote and fairly minimal smoking history.
- Consider formal PFTs as an outpatient after acute issues are resolved.
CAD status post stents x 2
- Stable. Continue ASA, statin, etc. last stent was in 2007. Patient cardiology at [facility].
Benign Hypertension
- Restart losartan 50mg as SBP 160S
Hypothyroidism
- Stable. Continue T4 supplementation.
Senile Dementia
Mood Disorder
- Restart Seroquel and monitor mentation.
- Can eventual dementia
Hep C - Chronic
- Unknown treatment history.
DVT Prophylaxis: Lovenox
Code Status: CODE STATUS switched to full code per daughter
Updated daughter over the phone in details.
Anticipated Discharge: Within 24 hours
Subjective/Interval History
-
Date of Service: February 07, 2024
sitting in chair
states breathing is improving
less nasal congestion
Objective Data
-
Labs:
Laboratory Results
02/07/24
07:41
WBC 10.6
Hgb 15.4
Hct 46.2
Plt Count 256
Sodium 139
Potassium 4.3
Chloride 103
Carbon Dioxide 25
BUN 22 H
Creatinine 0.7
Glucose 114 H
Calcium 9.2
Vital Signs:
Vital Signs
Temp Pulse Resp BP Pulse Ox
98.7 F 76 20 167/90 95
02/07/24 07:35 02/07/24 10:07 02/07/24 07:52 02/07/24 10:07 02/07/24 07:52
I&O
02/06/24 02/07/24 02/08/24
06:59 06:59 06:59
Intake Total 480 / 480 1640 / 1640
Output Total 550 / 550 150 / 150
Balance -70 / -70 1490 / 1490
Data Reviewed
-
Total Time Spent with Patient (in minutes): 55
--- NOTE | 2024-02-07 11:45 | CM ---
Chart reviewed for d/c planning. Pt is from [facility]-memory care.
Per hospitalist, pt can likely d/c tomorrow. Pt is currently being recommended for skilled rehab at this time
Previous CM sent referrals to preferred facilities established by pt's daughter, Mily
CM spoke w/ Mily via phone to review rehab determinations in preparation for potential d/c tomorrow. Per Mily, first choice is [facility] and if they do not have availability, second option would be [facility].
CM spoke w/ Armaan and Alexandra[facility] admissions. Per Alexandra, if pt is unable to admit today, referral will have to be declined as they do not accept new admissions over the weekend and cannot determine when they'll have availability.
CM reached out to [facility] admissions to inquire on bed availability tomorrow. Per Veronica, pt can be accepted tomorrow
Hospitalist and daughter updated and will plan for d/c tomorrow
Updated clinicals sent to [facility] [place] via [facility]
IMM reviewed w/ daughter, declined needing a copy. Copy placed on chart
Ambulance transport forms on chart
[facility]
Report: [phone]

Plan: [facility] via ambulance
--- NOTE | 2024-02-07 14:25 | PTOTSP ---
Speech Language Pathology
VIDEOFLUOROSCOPIC SWALLOWING EXAMINATION (VSE) completed. Mild oral and mod pharyngeal dysphagia noted. Mostly trace pharyngeal residue on base of tongue. Mod pyriform sinus residue noted with regular solids. Supraglottic penetration (PAS 3)
noted with thin liquids via single straw sip, mildly thick liquids via consecutive cup sips, moderately thick liquids via tsp, and puree. Responsive aspiration (PAS 7) with brief cough noted with consecutive straw sips of thin liquids. No
penetration/aspiration noted with thin liquids via tsp, mildly thick liquids via tsp, moderately thick liquids via cup, or regular solids. Pt significantly impulsive, taking large quantities of barium at a time, increasing risk.
Recommend:
(1) IDDSI Level 6 (soft/bite-sized) and mildly thick liquids
(2) Aspiration precautions: sit upright, slow rate, single sips, intermittent cue for cough/reswallow
(3) Meds whole in puree
(4) GUEST SERVICES DIRECTOR to continue to follow. Will consider upgrade to thin liquids if able to consistently demonstrate single sips only (will likely be in next level of care)
[2024-02-07] MEDS: LOVENOX 40 MG SC (18:21)
[2024-02-07] MEDS: ROCEPHIN 1000 MG IV (19:54)
[2024-02-07] MEDS: STERILE WATER FOR INJECTION 10 ML IV (19:54)
[2024-02-07] MEDS: ARICEPT 10 MG PO (21:49)
[2024-02-07] MEDS: LIPITOR 20 MG PO (21:49)
[2024-02-07] MEDS: SEROQUEL 100 MG PO (21:49)
[2024-02-08 03:52] VITALS: BP 160/96
[2024-02-08] MEDS: SYNTHROID 50 MCG PO (05:18)
[2024-02-08 06:00] VITALS: BMI 22.0
[2024-02-08 07:07] LABS: % Basophils 0.3 % (0-2); % Eosinophils 0.1 % (0-6); % Immature Granulocytes 1.8 % (0-0.5); % Lymphocytes 8.5 % (20.5-51.1); % Monocytes 4.3 % (1.7-9.3); Absolute Immature Granulocytes 0.2 10^3/uL (0-0.05); Absolute Monocytes 0.5 10^3/uL (0.1-0.6); Absolute Neutrophils 9.8 10^3/uL (1.4-6.5); Hematocrit 44.1 % (39.0-52.0); Hemoglobin 15.2 g/dL (13.0-18.0); Mean Corp Hgb Conc. 34.5 g/dL (33.0-37.0); Mean Platelet Volume 9.5 fL (7.4-10.4); Nucleated Red Blood Cells % 0 % (-); Platelet Count 271 10^3/uL (130-400); Red Cell Dist. Width 12.5 % (11.5-14.5); White Blood Cell Count 11.5 10^3/uL (4.8-10.8)
[2024-02-08 07:18] VITALS: BP 165/82
[2024-02-08 07:30] LABS: Blood Urea Nitrogen 24 mg/dl (9-20); Calcium 9.1 mg/dl (8.4-10.2); Carbon Dioxide 25 mmol/L (22-30); Chloride 103 mmol/L (98-107); Estimated Creatinine Clearance 78 ml/min; Glucose 96 mg/dl (70-99); Potassium 4.6 mmol/L (3.5-5.1); Sodium 135 mmol/L (135-145); eGFR > 60.00
[2024-02-08] MEDS: DUONEB 3 ML INH ×2 (07:49→11:41)
--- NOTE | 2024-02-08 08:50 | W.PN.PUL3 ---
Today's Communication / Plan
-
Check ambulatory pulse oximetry prior to discharge
DC home on DuoNebs and finish course of antibiotics
Encourage incentive spirometer use
Continue diet as per TEXTILE COATING MACHINE OPERATOR
Patient is being prepared for discharge home. No additional recommendations at this time. Pulmonary service will now sign off. Please reconsult if there are any additional questions/concerns, or if patient's respiratory status deteriorates.
Assessment
-
73-year-old male former smoker with underlying CAD, hypertension and dementia presented with cough and hypoxemia from [facility] consulted for shortness of breath/hypoxemia 02/07/2024.
Impression:
Pneumonia-atypical versus aspiration
Hypoxemic respiratory failure on supplemental oxygen
Toxic metabolic encephalopathy
COPD suspected
Aspiration risk
Leukocytosis
Mild hyperglycemia
Conditions present prior to admission:
CAD/stents.
Hypertension.
Hepatitis C.
Hypothyroid.
Dementia.
Gout.
GERD.
Former smoker
Bilateral calcified pleural plaques-suspected asbestos exposure
Anxiety/depression.
Diverticular disease.
Bowel resection. Ortho-right lower extremity.
Plan
Respiratory decompensation likely due from underlying mild lung disease, possible aspiration, atypical pneumonia and less likely volume overload with normal echo
Supplemental oxygen and wean down as tolerated --> check ambulatory pulse oximetry prior to discharge
Aspiration precautions
Defer diet to TEXTILE COATING MACHINE OPERATOR
DuoNebs continue
Decadron 4 mg IV every 12 hours
Singulair continues
Mucus clearing devices if needed
Check cultures
MRSA screening negative
Influenza negative
COVID negative
Blood cultures negative (collected 02/04/2024)
Sputum culture if able to produce
Empiric antibiotics-ceftriaxone and doxycycline for atypicals
DVT prophylaxis-on Lovenox
Nutrition
Early mobilization
Reviewed with nursing
Patient is being prepared for discharge home. Outpatient office follow-up will be arranged. No additional recommendations at this time. Pulmonary service will now sign off. Thank you for allowing us to be involved in the care of this patient.
Please reconsult if there are any additional questions/concerns, or if patient's respiratory status deteriorates.
Diagnostic data:
Chest x-ray 07/21/2013-NAD
Chest x-ray 08/13/2021-NAD
Chest x-ray 07/25/2023-NAD
Chest x-ray 02/04/2024-mild congestive heart failure
CT chest 07/24/2023-NAD, small amount of atelectasis or scarring in the lingula and anterior left lower lobe,
CT chest 02/05/2024-patchy parenchymal opacifications in both lungs mainly in the dependent portions new since July 2023 mainly due to atelectasis also component of patchy groundglass opacifications suggesting possible interstitial pneumonitis,
bilateral pleural plaques
Echocardiogram 02/05/2024-EF 65-70%, no valvular disease
Total time spent today was 28 minutes for this encounter. Time includes reviewing laboratory test/imaging results, reviewing pertinent medical records, obtaining and reviewing medical history, performing an appropriate exam, ordering medications,
tests and procedures. Time also includes documentation of this encounter, coordinating patient care and communicating with other healthcare professionals. Total time does not include separately billed tests performed on this date of service.
Subjective Data
-
Date of Service:
Date of Service: February 08, 2024
Chief Complaint: Pulmonary Follow Up
Subjective:
No acute events reported overnight. Currently on 3 L/min saturating 94%. He otherwise feels well, eager to go home. Denies chest pain, BURGOS, abdominal pain, nausea, fevers or chills.
Review of Systems
General: Other (Negative unless mentioned above)
Objective Data
Data Reviewed
Vital Signs / I&O / Oxygen:
Vital Signs
Temp Pulse Resp BP Pulse Ox
98.3 F 81 18 165/72 89
02/08/24 07:18 02/08/24 08:57 02/08/24 07:52 02/08/24 08:57 02/08/24 07:52
Intake and Output
02/07/24 02/08/24 02/09/24
06:59 06:59 06:59
Intake Total 1640 / 1640 1140 / 1140
Output Total 150 / 150
Balance 1490 / 1490 1140 / 1140
SaO2 89
Nasal Cannula flow liters per 3
minute
Physical Exam
General: Respiratory Distress (negative), Comfortable, Chills (negative) and Sweats (negative)
HEENT: Normocephalic and Anicteric
Cardiovascular: S1-S2, Rub (negative) and Peripheral Edema (negative)
Respiratory: Wheeze (Faintly heard upon expiration), Crackles (Bibasilar), Accessory Resp Muscle Use (negative), Stridor (negative) and Other (Diminished breath sounds bilaterally)
GI: Soft, Non Distended, Non Tender and Normal Bowel Sounds
Neurology: Awake, Alert and Tremors (negative)
Skin: Warm, Dry, Cyanosis (negative) and Jaundice (negative)
Labs/Micro/Reports
Lab Data
02/08/24 06:38
02/08/24 06:38
Microbiology
02/04/24 19:52 Blood/Venous Blood Culture - Preliminary
No Growth in 72 hours- Final report to follow
02/04/24 19:52 Blood/Venous Blood Culture - Preliminary
No Growth in 72 hours- Final report to follow
02/05/24 09:28 Nose MRSA Screen - Final
No Methicillin Resistant Staphylococcus aureus isolated.
[2024-02-08] MEDS: PROTONIX 40 MG PO (08:57)
[2024-02-08] MEDS: ZYLOPRIM 100 MG PO (08:57)
[2024-02-08] MEDS: COZAAR 50 MG PO (08:57)
[2024-02-08] MEDS: LEXAPRO 20 MG PO (08:58)
[2024-02-08] MEDS: LOW STRENGTH ASPIRIN 81 MG PO (08:58)
[2024-02-08] MEDS: VISBIOME 1 CAP PO (08:58)
[2024-02-08] MEDS: SINGULAIR 10 MG PO (08:58)
--- NOTE | 2024-02-08 10:43 | W.PN.HOSP.TC ---
Today's Communication/Plan
-
dc today
po abx
po steroids
Assessment / Plan
Assessment / Plan
A/P: Patient is a 73y M with PMH significant for ASCVD, hypertension and chronic hypoxemia who presents to ED from local [place] for evaluation of cough and hypoxemia.
Sepsis likely secondary to pneumonia (viral vs. bacterial) versus aspiration pneumonitis versus interstitial pneumonitis
Acute on Chronic Hypoxemic Respiratory Failure 3L prn at [place] secondary to the above
Acute TME secondary to the above-back to baseline
- Patient presents with fever, tachycardia, tachypnea and leukocytosis with respiratory symptoms
- COVID and Influenza negative in the ED.
- IV abx for now. Follow-up culture data, fever curve, clinical progress.
- ABG done without evidence of significant hypercapnia, etc
- CT head negative for acute pathology.
- Speech eval to rule out potential aspiration. Status post video swallow evaluation with aspiration. Patient now on soft bite-size diet with mildly thick liquids.
- Off BiPAP transition patient nasal cannula. Currently at 4 L.
- CT chest non contrast component of patchy groundglass opacity throughout both lungs, which would suggest a component of interstitial pneumonitis.
- Decadron 4 mg every 12 for now with quick taper.
- Will ask pulm to eval for GGO/interstitial pneumonitis
Pulmonary congestion
-Iatrogenic due to fluid overload
-Underfilled left ventricle with hyperdynamic systolic function. LVEF 65-70%. Normal right ventricular size and function. No significant valvular disease. Right heart pressures could not be estimated.
Dysphagia
-Status post video swallow evaluation with aspiration. Patient now on soft bite-size diet with mildly thick liquids.
Acute COPD exacerbation
- No formal diagnosis; however, patient was discharged with chronic O2 after his most recent visit here.
- Nebs ATC and PRN. and start IV steroids with taper regimen
- Remote and fairly minimal smoking history.
- Consider formal PFTs as an outpatient after acute issues are resolved.
CAD status post stents x 2
- Stable. Continue ASA, statin, etc. last stent was in 2007. Patient cardiology at [facility].
Benign Hypertension
- Restart losartan 50mg
Hypothyroidism
- Stable. Continue T4 supplementation.
Senile Dementia
Mood Disorder
- Restart Seroquel and monitor mentation. Patient had mild encephalopathy on admission and will hold trazodone 50 nightly for now.
DVT Prophylaxis: Lovenox
Code Status: CODE STATUS switched to full code per daughter
Updated daughter over the phone in details. She agreed for discharge.
More than 30 minutes spent in discharge including
Final examination of the patient
Summarizing hospital stay
Instructions for continuing care to all relevant caregivers
Preparation of discharge records, prescriptions, and referral forms
Total time spent (in minutes): 52
Anticipated Discharge: Today
Subjective/Interval History
-
Date of Service: February 08, 2024
Underwent VSE yesterday
remains on oxygen
states he is hungry
Objective Data
-
Labs:
Laboratory Results
02/08/24
06:38
WBC 11.5 H
Hgb 15.2
Hct 44.1
Plt Count 271
Sodium 135
Potassium 4.6
Chloride 103
Carbon Dioxide 25
BUN 24 H
Creatinine 0.8
Glucose 96
Calcium 9.1
Vital Signs:
Vital Signs
Temp Pulse Resp BP Pulse Ox
98.3 F 81 18 165/72 89
02/08/24 07:18 02/08/24 08:57 02/08/24 07:52 02/08/24 08:57 02/08/24 07:52
I&O
02/07/24 02/08/24 02/09/24
06:59 06:59 06:59
Intake Total 1640 / 1640 1140 / 1140
Output Total 150 / 150
Balance 1490 / 1490 1140 / 1140
Physical Exam
-
General: Well Developed, Well Nourished, No Apparent Distress and Comfortable; Negative Respiratory Distress
HEENT: Normocephalic, Atraumatic and Oxygen
Respiratory: Wheezes (improved ) and Non Labored Respirations; Negative Accessory Resp Muscle Use
Cardiac: Regular Rhythm and S1/S2; Negative Murmur
GI: Soft, Nontender, Nondistended and Normal Bowel Sounds
Musculoskeletal: No Clubbing, No Cyanosis and No Edema
Neuro: Awake
Psych: Calm and Apparent Dementia
--- NOTE | 2024-02-08 10:58 | W.DCSUMMARY ---
Discharge Summary
Discharge Data
Date of Admission: 02/04/24
Date of Discharge: 02/08/24
-
Pending Results: No
Hospital Course
73-year-old male past medical history of dementia, COPD, CAD status post stents, hypertension, hypothyroidism who is presenting from [facility] with hypoxemia, change in mental status. Patient was found to be septic which was deemed secondary to
aspiration pneumonia/pneumonitis. Patient also was found to be confused and was placed on BiPAP on admission. Patient mentation improved and was taken off BiPAP and placed on nasal cannula. Change in mental status was seen multifactorial due to
hypoxemia, pneumonia, polypharmacy. Patient Seroquel and trazodone was held initially. Patient mentation improved and Seroquel was restarted and trazodone was discontinued. Patient CT head was negative for acute pathology. ABG was negative for
significant hypercapnia. Patient was started on antibiotics and plan to complete the course. Patient with chest x-ray with congestion pulmonary which was seems second iatrogenic. Underwent echocardiogram which showed hyperdynamic left ventricle
with EF of 65 to 70%. Normal right ventricular size and function. No significant valvular disease. [place] pressure could not be estimated. Patient went CT chest which showed component of patchy groundglass opacity throughout both lungs, which
would suggest a component of interstitial pneumonitis. Patient initially was eval by speech therapy recommended pur�ed diet. However there was concern for silent aspiration and underwent video swallow study. Status post video swallow evaluation
with aspiration. Patient now on soft bite-size diet with mildly thick liquids. Patient oxygenation status was back to baseline. Patient was also started on IV steroids which will be transitioned to p.o. taper regimen at discharge. Patient
daughter was updated throughout hospitalization. Patient was eval by PT and OT with plan for fpc facility.
Discharge Plan
-
Patient Disposition: Custodial/SNF
Discharge Diagnosis/Procedures: Sepsis likely secondary to pneumonia (viral vs. bacterial) versus aspiration pneumonia versus interstitial pneumonitis
Acute on Chronic Hypoxemic Respiratory Failure 3L prn at [place] secondary to the above
Acute acute toxic metabolic encephalopathy
Pulmonary congestion
Dysphagia
Acute COPD exacerbation
Condition: Fair
Diet: Other diet
Additional Diets: Recommend:
(1) IDDSI Level 6 (soft/bite-sized) and mildly thick liquids
(2) Aspiration precautions: sit upright, slow rate, single sips, intermittent cue for cough/reswallow
(3) Meds whole in puree
(4) [employer] MACHINISTS to continue to follow. Will consider upgrade to thin liquids if able to consistently demonstrate single sips only (will likely be in next level of care)
Activity: With assistance and As tolerated
Driving Restrictions: No driving
Other Services: ST
Referrals:
Balwinder Kumari DO [Family Provider] - in less than 1 week
Josh Perkins MD [Active] - in two to four weeks (call to make appt)
Prescriptions:
New
ipratropium-albuterol 0.5 mg-3 mg(2.5 mg base)/3 mL solution for nebulization
3 ml inhalation Q8H PRN (Reason: shortness of breath or wheezing) Qty: 90 0RF
cefdinir 300 mg capsule
300 mg PO Q12H Qty: 4 0RF
doxycycline hyclate 100 mg capsule
100 mg PO BID Qty: 4 0RF
Continued
losartan 50 MG tablet
50 mg PO DAILY
allopurinol 100 MG tablet
100 mg PO DAILY
acetaminophen 325 mg Tablet
650 mg PO Q4HPRN MDD 3000 mg PRN (Reason: mild pain)
donepezil 10 mg Tablet
10 mg PO HS
quetiapine 100 mg Tablet
100 mg PO HS
levothyroxine [Synthroid] 50 mcg Tablet
50 mcg PO DAILY
escitalopram oxalate [Lexapro] 20 mg Tablet
20 mg PO DAILY
mometasone 0.1 % Cream
1 applic TOPICAL BIDPRN PRN (Reason: psoriasis)
vitamin B complex Capsule
2 cap PO DAILY
esomeprazole magnesium 20 mg Capsule,Delayed Release(Dr/Ec)
40 mg PO DAILY
ceramides 1,3,6-II Lotion
1 applic TOPICAL BIDPRN PRN (Reason: dryness)
albuterol sulfate 90 mcg/actuation HFA aerosol inhaler
2 puff inhalation R Q6HPRN PRN (Reason: shortness of breath or wheezing)
Visbiome 112.5 billion cell Capsule
1 cap PO DAILY Qty: 0 0RF
[place] Cough Drops lozenge
1 coy mucous membrane DAILYPRN PRN (Reason: cough)
atorvastatin 20 mg Tablet
20 mg PO HS
aspirin 81 mg Tablet,Chewable
81 mg PO DAILY
montelukast 10 mg Tablet
10 mg PO DAILY
Patient Comments:
02/04/24: to take for 7 days, from 02/05/24-02/12/24
Discontinued
trazodone 50 mg Tablet
50 mg PO HS
loperamide 2 mg Capsule
2 mg PO DAILYPRN MDD 8 mg PRN (Reason: diarrhea)
Discharge Orders:
Discharge Patient (As Directed); Ordered 02/08/24
Ordered By: Pedro Marinelli
Discharge Date and Time
Discharge Date/Time: 02/08/24 14:03
Print Language: MEXICAN
--- NOTE | 2024-02-08 11:06 | CM ---
CM reviewed chart, reviewed with Hospitalist, patient for discharge to [facility]. Call to [facility] to update, transport time scheduled for 1:30 p.m. Call placed to daughter, Mily, will plan to meet patient at facility. Daughter requesting
patients bag, shoes, and glasses be transported with patient. CM will continue to follow for all discharge planning needs.
Plan; [facility], 1:30 p.m. ambulance transport
[facility]
Report: [phone]
[2024-02-08] MEDS: DECADRON 4 MG IV (11:12)
[2024-02-08] MEDS: VIBRAMYCIN 260 MG IV (11:12)
[2024-02-08 13:34] VITALS: BP 148/86
== END 2024-02-08 14:03 | DRG 871 ==
LOC: 4 WEST ACU 21:12
PROVIDERS: Student in an Organized Health Care Education/Training Program; ADMITTING PHYSICIAN Hospitalist; ATTENDING PHYSICIAN Hospitalist; CONSULT PHYSICIAN Internal Medicine Critical Care Medicine; EMERGENCY PHYSICIAN Emergency Medicine; FAMILY PHYSICIAN Internal Medicine
PROC: 5A09357 Assistance with Respiratory Ventilation, Less than 24 Consecutive Hours, Continuous Positive Airway Pressure (ICD-10-PCS; 2024-02-04)
DX: A41.9 Sepsis, unspecified organism (principal); G92.8 Other toxic encephalopathy; J96.21 Acute and chronic respiratory failure with hypoxia; J69.0 Pneumonitis due to inhalation of food and vomit; J44.0 Chronic obstructive pulmonary disease with (acute) lower respiratory infection; J44.1 Chronic obstructive pulmonary disease with (acute) exacerbation; F03.94 Unspecified dementia, unspecified severity, with anxiety; F03.93 Unspecified dementia, unspecified severity, with mood disturbance; R13.10 Dysphagia, unspecified; Z11.52 Encounter for screening for COVID-19; E03.9 Hypothyroidism, unspecified; I10 Essential (primary) hypertension; I25.10 Atherosclerotic heart disease of native coronary artery without angina pectoris; Z95.5 Presence of coronary angioplasty implant and graft; Z79.890 Hormone replacement therapy; L40.9 Psoriasis, unspecified; Z79.899 Other long term (current) drug therapy; B18.2 Chronic viral hepatitis C; M10.9 Gout, unspecified; K21.9 Gastro-esophageal reflux disease without esophagitis; F41.9 Anxiety disorder, unspecified; F32.A Depression, unspecified; K57.30 Diverticulosis of large intestine without perforation or abscess without bleeding; Z87.891 Personal history of nicotine dependence; Z79.82 Long term (current) use of aspirin; Z66 Do not resuscitate; E78.00 Pure hypercholesterolemia, unspecified
CPT/HCPCS: 70450; 71045; 71250; 74230; 80048; 80053; 82248; 82805; 83605; 83880; 84145; 84439; 84443; 84484; 85025; 85027; 87040; 87070; 87502; 87811; 92610; 92611; 93005; 93306; 94640; 94660; 94667; 94668; 96374; 96375; 97163; 97167; 97530; 99291

== ENCOUNTER → 2024-02-13 08:19 | Outpatient (REF) | payer MEDICARE, OTHER, SELFPAY ==
[2024-02-13 09:22] LABS: % Basophils 0.3 % (0-2); % Eosinophils 4.9 % (0-6); % Immature Granulocytes 0.8 % (0-0.5); % Lymphocytes 9.3 % (20.5-51.1); % Monocytes 9.3 % (1.7-9.3); % Neutrophils 75.4 % (42.2-75.2); Absolute Eosinophils 0.6 10^3/uL (0-0.7); Absolute Immature Granulocytes 0.1 10^3/uL (0-0.05); Absolute Lymphocytes 1.2 10^3/uL (1.2-3.4); Absolute Monocytes 1.2 10^3/uL (0.1-0.6); Absolute Neutrophils 9.8 10^3/uL (1.4-6.5); Hematocrit 47.1 % (39.0-52.0); Hemoglobin 15.7 g/dL (13.0-18.0); Mean Corp Hgb Conc. 33.3 g/dL (33.0-37.0); Mean Corpuscular Hgb 31.3 pg (27.0-31.0); Mean Platelet Volume 9.9 fL (7.4-10.4); Nucleated Red Blood Cells % 0 % (-); Platelet Count 234 10^3/uL (130-400); Red Blood Cell Count 5.01 10^6/uL (4.70-6.10); Red Cell Dist. Width 12.5 % (11.5-14.5)
[2024-02-13 09:57] LABS: Blood Urea Nitrogen 29 mg/dl (9-20); Calcium 8.6 mg/dl (8.4-10.2); Carbon Dioxide 31 mmol/L (22-30); Chloride 100 mmol/L (98-107); Glucose 100 mg/dl (70-99); Potassium 4.4 mmol/L (3.5-5.1); Sodium 137 mmol/L (135-145); eGFR > 60.00
== END ==
LOC: OLABP 08:19
PROVIDERS: ATTENDING PHYSICIAN Family Medicine
DX: J44.1 Chronic obstructive pulmonary disease with (acute) exacerbation (principal); I11.9 Hypertensive heart disease without heart failure; A41.9 Sepsis, unspecified organism; J15.9 Unspecified bacterial pneumonia; G92.8 Other toxic encephalopathy; I25.10 Atherosclerotic heart disease of native coronary artery without angina pectoris; E03.9 Hypothyroidism, unspecified; F03.90 Unspecified dementia, unspecified severity, without behavioral disturbance, psychotic disturbance, mood disturbance, and anxiety; Z86.19 Personal history of other infectious and parasitic diseases
CPT/HCPCS: 36415; 80048; 85025

== ENCOUNTER → 2024-02-24 10:50 | Outpatient (REF) | payer OTHER, MEDICARE, SELFPAY ==
[2024-02-24 11:41] LABS: % Basophils 0.6 % (0-2); % Eosinophils 10.2 % (0-6); % Immature Granulocytes 0.5 % (0-0.5); % Neutrophils 57.7 % (42.2-75.2); Absolute Eosinophils 0.6 10^3/uL (0-0.7); Absolute Lymphocytes 1.3 10^3/uL (1.2-3.4); Absolute Monocytes 0.7 10^3/uL (0.1-0.6); Absolute Neutrophils 3.6 10^3/uL (1.4-6.5); Hematocrit 40.5 % (39.0-52.0); Hemoglobin 13.3 g/dL (13.0-18.0); Mean Corp Hgb Conc. 32.8 g/dL (33.0-37.0); Mean Corpuscular Hgb 30.2 pg (27.0-31.0); Mean Corpuscular Volume 91.8 fL (80.0-94.0); Mean Platelet Volume 9.6 fL (7.4-10.4); Nucleated Red Blood Cells % 0 % (-); Platelet Count 245 10^3/uL (130-400); Red Blood Cell Count 4.41 10^6/uL (4.70-6.10); Red Cell Dist. Width 12.3 % (11.5-14.5); White Blood Cell Count 6.3 10^3/uL (4.8-10.8)
== END ==
LOC: OLABP 10:50
PROVIDERS: ATTENDING PHYSICIAN Family Medicine
DX: A41.9 Sepsis, unspecified organism (principal); J44.1 Chronic obstructive pulmonary disease with (acute) exacerbation; I11.9 Hypertensive heart disease without heart failure; I25.10 Atherosclerotic heart disease of native coronary artery without angina pectoris; E03.9 Hypothyroidism, unspecified; Z86.19 Personal history of other infectious and parasitic diseases
CPT/HCPCS: 36415; 85025

== ENCOUNTER 2024-03-12 06:17 | Emergency (ER) | payer MEDICARE, OTHER, SELFPAY ==
--- NOTE | 2024-03-12 06:19 | ED.GENMED ---
History of Present Illness
General
Chief Complaint: Fall
Time Seen by Provider: 03/12/24 06:18
History of Present Illness
History of Present Illness:
TIME OF INITIAL ENCOUNTER: 6:20 AM
HPI: As patient is somewhat of a limited historian, I spoke to EMS for history. They tell me that the patient had an unwitnessed fall out of bed from [facility] [place]. He came in here for evaluation. He was found to have a laceration at the
eyebrow. He is on aspirin. He is reportedly at his baseline mental status and does have 'some dementia'. He has no specific complaints but he does indicate that he feels somewhat 'confused'. He also reports some discomfort during examination
near the left hip.
EXAM:
GENERAL: Well appearing in no distress
CERVICAL SPINE: No midline c-spine tenderness with excellent AROM
HEAD: There is a 1.5 cm slightly irregular laceration over the right eyebrow with no associated hematoma
CHEST: No chest wall tenderness, normal heart sounds
LUNGS: Equal lung sounds, no respiratory distress
ABDOMEN: No abdominal tenderness, no peritoneal signs
EXTREMITIES: Normal active range of motion, no tenderness, however the left hip range of motion may be slightly decreased
NEURO: Excellent strength all extremities, appropriate mental status, normal speech/language
NUMBER AND COMPLEXITY OF PROBLEMS ADDRESSED AT THE ENCOUNTER
� Chronic conditions affecting care: CAD, high blood pressure, hyperlipidemia, diverticular disease, thyroid disease, anxiety/depression
� Acute Exacerbation and/or Progression of Chronic Illness: This is an acute problem
� Differential Diagnosis includes: Minor head injury, laceration, hematoma, intracranial hemorrhage, hip fracture, pelvis
AMOUNT AND/OR COMPLEXITY OF DATA TO BE REVIEWED AND ANALYZED
� I performed an independent evaluation of and my interpretation is:
EKG:
CT: CT head shows no acute abnormality
X-rays: I personally reviewed x-rays of the left hip and pelvis and see no sign of fracture
Laboratory Studies:
Other:
� Review of other/old records: The patient was also here for a laceration about a year ago but no clear sign that tetanus shot was given at that time.
� Clinical information was obtained by an independent historian: I spoke to Emmanuellee above
� Prescriptions/Medications Considered but not given:
� Further testing considered but not performed:
RISK OF COMPLICATIONS AND/OR MORBIDITY OR MORTALITY OF PATIENT MANAGEMENT
� Social determinants of health affecting care: Resides at the [facility]
� Discussion with other providers:
� Escalation of care including admission/observation vs risk of discharge considered: I cleaned and sutured the laceration. Given patient's age with signs of head trauma, CT brain obtained. He was not certain of last tetanus
shot�gave 1 here. Will also check left hip imaging.
ANY OTHER UPDATES:
7:45 AM: I reassessed patient and there is no change in his clinical condition. I spoke to the daughter at bedside. Imaging unremarkable.
Past History
Past History
ED Past Medical History: CAD, GERD, HTN, Hypercholesterolemia, [place], Renal failure, Hypothyroidism, Psychiatric (Patient states he has dementia) and Other (Dementia)
ED Past Surgical History: Bowel resection, Cardiac and Orthopedic
Social History
Tobacco: Former smoker
Alcohol: None
Drug: None
Personal:
Living: assisted living
Employment: Retired
Family History
Family History: Other (Noncontributory)
Phy Exam
Physical Exam
Physical Exam:
See HPI
Course
Orders/Labs/Results
Orders:
Orders
03/12/24 06:27
CT Head W/o Iv Contrast Urgent
Comment:
Reason For Exam: fall
CR Hip - LT w/wo Pel 2-3 Vw* Urgent
Comment:
Reason For Exam: fall
Include a pelvis x-ray?: Yes
03/12/24 06:33
Tetanus/Diphth/Acelpertussis [Adacel] 0.5 ml IM .ONCE ONE
Vital Signs
Initial and Last Documented VS:
Initial Vital Signs
Pulse Resp Pulse Ox
69 18 95
03/12/24 06:26 03/12/24 06:26 03/12/24 06:26
Last Documented Vital Signs
Temp Pulse Resp BP Pulse Ox
36.4 C 63 14 174/75 94
03/12/24 06:29 03/12/24 06:45 03/12/24 06:45 03/12/24 06:29 03/12/24 06:45
Procedures
Laceration Closure
Right Upper Face:
Status of Wound: clean
Size of Wound in cm: 1.5
Description of Wound Edges: sharp
Revision/Debridement: routine- no revision
Wound exploration: explored to base- no FB
Type of Closure: single layer closure
Skin Closure Material: 5-0 nylon
Number of sutures: 2
*Critical Care Note
Total Time (30-74mins, 75-104mins- exclusive of procedures): Not Applicable
ED Attending Note
-
Portions of this chart may have been created with voice recognition software.� Occasional wrong word or��sound alike� substitutions may have occurred due to the inherent limitations of voice recognition software.
Discharge Plan
Departure
Patient Disposition: Home (Routine Discharge)
Date of Disposition: 03/12/24
Time of Disposition: 07:46
Patient with high blood pressure during this ER visit?: Yes
Discharge Problem:
Facial laceration
Instructions: Head Injury in Adults (DC), Laceration Repair With Stitches (DC)
Prescriptions:
No Action
losartan 50 MG tablet
50 mg PO DAILY
allopurinol 100 MG tablet
100 mg PO DAILY
acetaminophen 325 mg Tablet
650 mg PO Q4HPRN MDD 3000 mg PRN (Reason: mild pain)
donepezil 10 mg Tablet
10 mg PO HS
quetiapine 100 mg Tablet
100 mg PO HS
levothyroxine [Synthroid] 50 mcg Tablet
50 mcg PO DAILY
escitalopram oxalate [Lexapro] 20 mg Tablet
20 mg PO DAILY
mometasone 0.1 % Cream
1 applic TOPICAL BIDPRN PRN (Reason: psoriasis)
vitamin B complex Capsule
2 cap PO DAILY
esomeprazole magnesium 20 mg Capsule,Delayed Release(Dr/Ec)
40 mg PO DAILY
ceramides 1,3,6-II Lotion
1 applic TOPICAL BIDPRN PRN (Reason: dryness)
albuterol sulfate 90 mcg/actuation HFA aerosol inhaler
2 puff inhalation R Q6HPRN PRN (Reason: shortness of breath or wheezing)
Visbiome 112.5 billion cell Capsule
1 cap PO DAILY Qty: 0 0RF
[place] Cough Drops lozenge
1 coy mucous membrane DAILYPRN PRN (Reason: cough)
atorvastatin 20 mg Tablet
20 mg PO HS
aspirin 81 mg Tablet,Chewable
81 mg PO DAILY
montelukast 10 mg Tablet
10 mg PO DAILY
Patient Comments:
02/04/24: to take for 7 days, from 02/05/24-02/12/24
ipratropium-albuterol 0.5 mg-3 mg(2.5 mg base)/3 mL solution for nebulization
3 ml inhalation Q8H PRN (Reason: shortness of breath or wheezing) Qty: 90 0RF
cefdinir 300 mg capsule
300 mg PO Q12H Qty: 4 0RF
doxycycline hyclate 100 mg capsule
100 mg PO BID Qty: 4 0RF
Referrals:
Balwinder Kumari DO [Family Provider] -
Activity Restrictions/Additional Instructions:
Have the stitches removed by your nurse/doctor in approximately 5 days. CAT scan of the brain shows no bleeding. Return here if worse or other concerns.
Interventions
Interventions:
*Risk Screen - Suicide Last Done: 03/12/24 06:29
*General Assessment Last Done: 03/12/24 06:29
*Neglect/Abuse Screening Last Done: 03/12/24 06:29
ED- Fall Risk Assessment Last Done: 03/12/24 08:05
*ED COVID-19 Vaccine History Last Done: 03/12/24 06:32
*Nursing Disposition Last Done: 03/12/24 08:05
ED-Musculoskeletal Assessment Last Done: 03/12/24 06:32
ED- Neurological Assessment Last Done: 03/12/24 06:32
ED-Skin Assessment Last Done: 03/12/24 06:32
Discharge Date and Time
Discharge Date/Time: 03/12/24 08:08
Print Language: CITIZEN OF [place]
[2024-03-12 06:29] VITALS: BP 174/75; BMI 23.5
[2024-03-12] MEDS: ADACEL 0.5 ML IM (06:43)
== END 2024-03-12 08:08 ==
LOC: EMR 06:17
PROVIDERS: EMERGENCY PHYSICIAN Emergency Medicine; FAMILY PHYSICIAN Internal Medicine
DX: S01.111A Laceration without foreign body of right eyelid and periocular area, initial encounter (principal); W06.XXXA Fall from bed, initial encounter; I25.10 Atherosclerotic heart disease of native coronary artery without angina pectoris; K21.9 Gastro-esophageal reflux disease without esophagitis; I10 Essential (primary) hypertension; I25.2 Old myocardial infarction; E03.9 Hypothyroidism, unspecified; E78.00 Pure hypercholesterolemia, unspecified; F03.90 Unspecified dementia, unspecified severity, without behavioral disturbance, psychotic disturbance, mood disturbance, and anxiety; Z87.891 Personal history of nicotine dependence; Z79.82 Long term (current) use of aspirin; Z23 Encounter for immunization
CPT/HCPCS: 12011; 90471; 99284; 70450; 73502; 90715

== ENCOUNTER → 2024-03-16 10:36 | Outpatient (REF) | payer MEDICARE, OTHER, SELFPAY ==
[2024-03-16 13:53] LABS: TSH 0.45 uIU/ml (0.47-4.68)
== END ==
LOC: OLABPATH 10:36
PROVIDERS: ATTENDING PHYSICIAN Internal Medicine
DX: E03.9 Hypothyroidism, unspecified (principal)
CPT/HCPCS: 36415; 84443

== ENCOUNTER → 2024-03-23 12:14 | Outpatient (REF) | payer MEDICARE, OTHER, SELFPAY ==
[2024-03-23 14:05] LABS: Free T4 0.98 ng/dl (0.78-2.19)
[2024-03-23 14:19] LABS: TSH 0.86 uIU/ml (0.47-4.68)
[2024-03-25 14:23] LABS: Total T3 (Sendout) 82 ng/dL (80-200)
== END ==
LOC: OLABPATH 12:14
PROVIDERS: ATTENDING PHYSICIAN Internal Medicine
DX: E03.9 Hypothyroidism, unspecified (principal)
CPT/HCPCS: 36415; 84439; 84443; 84480

== ENCOUNTER → 2024-03-27 14:03 | Outpatient (REF) | payer MEDICARE, OTHER, SELFPAY ==
[2024-03-27 14:59] LABS: Blood Urea Nitrogen 19 mg/dl (9-20); Calcium 8.5 mg/dl (8.4-10.2); Carbon Dioxide 29 mmol/L (22-30); Chloride 100 mmol/L (98-107); Glucose 118 mg/dl (70-99); Potassium 4.2 mmol/L (3.5-5.1); Sodium 135 mmol/L (135-145); eGFR > 60.00
== END ==
LOC: OLABPATH 14:03
PROVIDERS: ATTENDING PHYSICIAN Internal Medicine
DX: R79.0 Abnormal level of blood mineral (principal)
CPT/HCPCS: 36415; 80048

== ENCOUNTER 2024-03-28 10:50 | Emergency (ER) | payer MEDICARE, OTHER, SELFPAY ==
[2024-03-28 10:54] VITALS: BP 122/64; BMI 23.8
[2024-03-28 10:55] VITALS: BP 122/64
[2024-03-28 11:00] VITALS: BP 124/61
[2024-03-28 11:32] LABS: COVID-19 Antigen Negative (Negative)
--- NOTE | 2024-03-28 11:38 | ED.GENMED ---
History of Present Illness
General
Chief Complaint: Cold/Flu/URI Symptoms
Source: patient, ambulance crew and long-term
Exam Limitations: dementia
Time Seen by Provider: 03/28/24 11:03
Nursing documentation reviewed up to this point in time: agreed with
History of Present Illness
History of Present Illness:
74-year-old male with a history of dementia from [facility] [place], chronic respiratory failure with hypoxia on 2 L at baseline nasal cannula, hypertension, [place], hyperlipidemia presents from the pathways for increased lethargy today,
little bit of respiratory distress requiring 2 extra liters of oxygen, cough, low-grade temp of 99.8. Patient is typically only oriented to self at baseline. He has a DNR and otherwise limited additional interventions, agrees to antibiotics and
hydration per the POLST form. Patient says he feels some soreness when he coughs. He otherwise he does not really answer questions.
With unclear how long this has been going on it sounds like this is all new this morning
pt is coughing
Past History
Past History
ED Past Medical History: CAD, GERD, HTN, Hypercholesterolemia, [place], Renal failure, Hypothyroidism, Psychiatric (Patient states he has dementia) and Other (Dementia)
ED Past Surgical History: Bowel resection, Cardiac and Orthopedic
Social History
Tobacco: Former smoker
Alcohol: None
Drug: None
Personal:
Living: assisted living
Employment: Retired
Family History
Family History: Other (Noncontributory)
Review of Systems
Review of Systems
Allergies reviewed?: Yes
All Other Systems: Not applicable
Phy Exam
Physical Exam
Physical Exam:
GENERAL: Alert , in no apparent distress generalized weakness
EYE: pupils equal and reactive
NECK: Supple
ENT: b/l TM s clear, pharynx erythematous but no tonsillar hypertrophy or exudates
CARDIAC: Regular rate and rhythm, no edema
LUNGS: Occasional cough, rhonchi and end expiratory wheezing best heard in the bases bilaterally, no tachypnea x 1 which is baseline
ABDOMEN: Soft, without focal tenderness, no r/g, n occasional cough, end expiratory wheezing o cvat, normal bowel sounds
NEUROLOGICAL: Alert and orientedX 1 which is baseline, no focal neuro deficits
SKIN: Warm and dry, skin intact.
MUSCULOSKELETAL: No edema, well perfused.
PSYCH: Normal and appropriate interaction.
Course
Orders/Labs/Results
Orders:
Orders
03/28/24
Electrocardiogram (*1) Stat
Reason for Study: Chest Pain
Comment: DONE NO ORDER ENTERED
03/28/24 11:02
COVID-19 Antigen Urgent
Source: Nasal Swab
Influenza A+B Rapid Molecular Urgent
RAINER Source: Nasal Swab
Specimen Description:
03/28/24 11:34
Ipratropium/Albuterol Sulfate [Duoneb] 3 ml INH R NOW STA
03/28/24 11:35
Electrocardiogram (*1) Urgent
Reason for Study: Shortness of Breath
EKG- Treatment ONCE
CR Chest - 2 Views Urgent
Comment:
Reason For Exam: WHEEING, COUGH, HYPOXIA
03/28/24 11:37
Oseltamivir Phosphate [Tamiflu] 75 mg PO NOW STA
03/28/24 11:57
Complete Blood Count/With Diff Urgent
Comprehensive Metabolic Panel Urgent
Lactic Acid Urgent
NT-proBNP Urgent
03/28/24 13:25
Dexamethasone Sod Phosphate [Decadron] 8 mg IV NOW STA
Ipratropium/Albuterol Sulfate [Duoneb] 3 ml INH R NOW STA
Abnormal Lab Results
03/28/24
11:57
WBC 2.7 L 10^3/uL
(4.8-10.8)
MCV 94.5 H fL
(80.0-94.0)
MCHC 32.5 L g/dL
(33.0-37.0)
Absolute Lymphs (auto) 0.7 L 10^3/uL
(1.2-3.4)
Monocytes % 18.1 H %
(1.7-9.3)
Carbon Dioxide 33 H mmol/L
(22-30)
AST 61 H U/L
(17-59)
03/28/24 11:57
03/28/24 11:57
Vital Signs
Initial and Last Documented VS:
Initial Vital Signs
Temp Pulse Resp BP Pulse Ox
36.9 C 73 20 122/64 92
03/28/24 10:54 03/28/24 10:54 03/28/24 10:54 03/28/24 10:54 03/28/24 10:54
Last Documented Vital Signs
Temp Pulse Resp BP Pulse Ox
36.9 C 69 15 125/62 99
03/28/24 10:54 03/28/24 12:45 03/28/24 12:45 03/28/24 12:00 03/28/24 13:53
MDM/Problems Addressed
Differential Diagnosis Includes:
flu, covid, pneumoani
MDM/Problems Addressed:
74 y/o M with h/o LA, HTN, HLD
o2 dependent
from NH
dementia
here with 1 day flu like symptoms, cough, fatigue, wheezing, needed extra o2, low grade temp
pt is stable on 4L turned downt o 3L
wheezing end exp lower, occ cough
no tachypnea
cxr indep reviewed, clear, no pna
labs appreciate leukopenia, mild AST elevation
bnp normal
lactate noromal
flu +
duoneb helped cough
given 1 dose steroid and tamiflu
i spoke with RN at facility; ok to take him back on nebs, tamiflu, maybe extr ao2 as needed
daughter here and agree as well
*Critical Care Note
Total Time (30-74mins, 75-104mins- exclusive of procedures): Not Applicable
ED Attending Note
-
Portions of this chart may have been created with voice recognition software.� Occasional wrong word or��sound alike� substitutions may have occurred due to the inherent limitations of voice recognition software.
Discharge Plan
Departure
Patient Disposition: Intermediate/SNF
Date of Disposition: 03/28/24
Time of Disposition: 13:30
Condition: Fair
Covid-19: Negative COVID-19
Discharge Problem:
Chronic respiratory failure with hypoxia, Influenza A
Instructions: Flu in adults - ED discharge instructions
Prescriptions:
New
oseltamivir [Tamiflu] 75 mg capsule
75 mg PO BID 5 Days Qty: 10 0RF
No Action
losartan 50 MG tablet
50 mg PO DAILY
allopurinol 100 MG tablet
100 mg PO DAILY
acetaminophen 325 mg Tablet
650 mg PO Q4HPRN MDD 3000 mg PRN (Reason: mild pain)
donepezil 10 mg Tablet
10 mg PO HS
quetiapine 100 mg Tablet
100 mg PO HS
levothyroxine [Synthroid] 50 mcg Tablet
50 mcg PO DAILY
escitalopram oxalate [Lexapro] 20 mg Tablet
20 mg PO DAILY
mometasone 0.1 % Cream
1 applic TOPICAL BIDPRN PRN (Reason: psoriasis)
vitamin B complex Capsule
2 cap PO DAILY
esomeprazole magnesium 20 mg Capsule,Delayed Release(Dr/Ec)
40 mg PO DAILY
albuterol sulfate 90 mcg/actuation HFA aerosol inhaler
2 puff inhalation R Q6HPRN PRN (Reason: shortness of breath or wheezing)
Visbiome 112.5 billion cell Capsule
1 cap PO DAILY Qty: 0 0RF
[place] Cough Drops Lozenge
3.1 mg MUCOUS MEMBRANE DAILYPRN PRN (Reason: SORE THROAT) Qty: 0
atorvastatin 20 mg Tablet
20 mg PO HS
aspirin 81 mg Tablet,Chewable
81 mg PO DAILY
trazodone 50 mg Tablet
50 mg PO HS
ondansetron HCl [Zofran] 4 mg Tablet
4 mg PO Q4HPRN PRN (Reason: NAUSEA)
loperamide 2 mg Tablet
2 mg PO Q4HPRN PRN (Reason: DIARRHEA)
oseltamivir [Tamiflu] 75 mg Capsule
75 mg PO BID
Rx Instructions:
TAKE UNTIL 04/04/24
Incruse Ellipta 62.5 mcg/actuation Blister With Device
1 inh INHALATION R DAILY
Referrals:
Balwinder Kumari, [Family Provider] - Follow up in 2-3 days
Activity Restrictions/Additional Instructions:
HUMBERTO HAS THE FLU
TAMIFLU TWCIE A DAY FOR 5 DAYS
NEB TREATMENTS (ALBUTEROL) EVERY 6 HOURS NEEDED
HE GOT A DOSE OF STEROIDS HERE WELL BUT WAS BLE TO TOLERATE 3L O2
NO PNEUMONIA
LABS WERE OK
RETURN FOR ANY CONCERNS.
Interventions
Interventions:
*Risk Screen - Suicide Last Done: 03/28/24 10:54
*General Assessment Last Done: 03/28/24 10:54
*Neglect/Abuse Screening Last Done: 03/28/24 10:54
ED- Fall Risk Assessment Last Done: 03/28/24 10:54
ED- Pulmonary Assessment Last Done: 03/28/24 11:04
Discharge Date and Time
Print Language: [id number]
[2024-03-28] MEDS: DUONEB 3 ML INH ×2 (11:58→13:31)
[2024-03-28] MEDS: TAMIFLU 75 MG PO (11:58)
[2024-03-28 12:00] VITALS: BP 125/62
[2024-03-28 12:22] LABS: % Basophils 0.8 % (0-2); % Eosinophils 2.3 % (0-6); % Lymphocytes 27.2 % (20.5-51.1); % Monocytes 18.1 % (1.7-9.3); % Neutrophils 51.6 % (42.2-75.2); Absolute Eosinophils 0.1 10^3/uL (0-0.7); Absolute Lymphocytes 0.7 10^3/uL (1.2-3.4); Absolute Monocytes 0.5 10^3/uL (0.1-0.6); Absolute Neutrophils 1.4 10^3/uL (1.4-6.5); Hemoglobin 15.6 g/dL (13.0-18.0); Mean Corp Hgb Conc. 32.5 g/dL (33.0-37.0); Mean Corpuscular Hgb 30.7 pg (27.0-31.0); Mean Corpuscular Volume 94.5 fL (80.0-94.0); Mean Platelet Volume 9.4 fL (7.4-10.4); Nucleated Red Blood Cells % 0 % (-); Platelet Count 153 10^3/uL (130-400); Red Blood Cell Count 5.08 10^6/uL (4.70-6.10); Red Cell Dist. Width 13.5 % (11.5-14.5); White Blood Cell Count 2.7 10^3/uL (4.8-10.8)
[2024-03-28 12:44] LABS: Lactic Acid 1.6 mmol/L (0.7-2.0)
[2024-03-28 12:45] LABS: ALT (SGPT) 45 U/L (0-50); AST (SGOT) 61 U/L (17-59); Albumin 3.6 g/dl (3.5-5.0); Alkaline Phosphatase 122 U/L (38-126); Blood Urea Nitrogen 19 mg/dl (9-20); Calcium 8.8 mg/dl (8.4-10.2); Carbon Dioxide 33 mmol/L (22-30); Chloride 100 mmol/L (98-107); Estimated Creatinine Clearance 73 ml/min; Glucose 93 mg/dl (70-99); Potassium 4.4 mmol/L (3.5-5.1); Sodium 138 mmol/L (135-145); Total Bilirubin 0.7 mg/dl (0.2-1.3); eGFR > 60.00
[2024-03-28 12:54] LABS: NT-proBNP 266 pg/ml
[2024-03-28] MEDS: DECADRON 8 MG IV (13:31)
== END 2024-03-28 14:41 ==
LOC: EMR 10:50
PROVIDERS: Physician Assistant; EMERGENCY PHYSICIAN Emergency Medicine; FAMILY PHYSICIAN Internal Medicine
DX: J96.11 Chronic respiratory failure with hypoxia (principal); J10.1 Influenza due to other identified influenza virus with other respiratory manifestations; F03.90 Unspecified dementia, unspecified severity, without behavioral disturbance, psychotic disturbance, mood disturbance, and anxiety; E03.9 Hypothyroidism, unspecified; E78.00 Pure hypercholesterolemia, unspecified; I10 Essential (primary) hypertension; I25.2 Old myocardial infarction; I25.10 Atherosclerotic heart disease of native coronary artery without angina pectoris; K21.9 Gastro-esophageal reflux disease without esophagitis; Z87.891 Personal history of nicotine dependence; Z99.81 Dependence on supplemental oxygen; Z66 Do not resuscitate
CPT/HCPCS: 96374; 94640; 99285; 71046; 80053; 83605; 83880; 85025; 87502; 87811; 93005

== ENCOUNTER → 2024-04-06 09:34 | Outpatient (REF) | payer MEDICARE, OTHER, SELFPAY | LOC: HWRAD 09:34 | PROVIDERS: ATTENDING PHYSICIAN Nurse Practitioner Adult Health; FAMILY PHYSICIAN Internal Medicine | DX: B19.20 Unspecified viral hepatitis C without hepatic coma (principal); J69.0 Pneumonitis due to inhalation of food and vomit | CPT/HCPCS: 71250 ==

== ENCOUNTER 2024-05-08 15:40 | Emergency (ER) | payer MEDICARE, OTHER, SELFPAY ==
[2024-05-08 15:44] VITALS: BP 118/70
[2024-05-08 15:52] VITALS: BP 114/62
--- NOTE | 2024-05-08 15:58 | ED.GENMED ---
History of Present Illness
General
Chief Complaint: Cardiac Symptoms
Source: patient and ambulance crew
Exam Limitations: dementia
Time Seen by Provider: 05/08/24 15:42
History of Present Illness
History of Present Illness:
74yoM with a history of dementia, chronic respiratory failure on 3L NC, coronary artery disease, hypertension, and hyperlipidemia presenting via EMS for evaluation after an episode of dizziness. Patient was working with OT this afternoon. He had a
bowel movement during his session. He was walking after the bowel movement and started to complain of dizziness and shortness of breath. He apparently was complaining of neck pain which radiated to the back and arms. He did not lose
consciousness. Blood pressure was in the 80s/40s at his halfway but blood pressures normal during transport. His oxygen was increased from 3L NC to 4L NC due to oxygen saturation of 90%. He denies any neck pain, chest pain, or shortness of
breath currently. He does report low back pain but he admits this has been intermittent for a while.
Past History
Past History
ED Past Medical History: CAD, GERD, HTN, Hypercholesterolemia, DC, Renal failure, Hypothyroidism, Psychiatric (Patient states he has dementia) and Other (Dementia)
ED Past Surgical History: Bowel resection, Cardiac and Orthopedic
Social History
Tobacco: Former smoker
Alcohol: None
Drug: None
Personal:
Living: assisted living
Employment: Retired
Family History
Family History: Other (Noncontributory)
Phy Exam
General Physical Exam
General Presentation: well appearing and no apparent distress
General age: appears stated age
General Skin: warm and dry
General Habitus: normal
General Mental: alert
ENT Exam
ENT Exam: normocephalic
Cardiovascular Exam
Cardiovascular Exam: regular rate/rhythm, normal peripheral pulses (2+ radial pulses bilaterally) and other (BP 118/70 on R arm, 114/62 on L arm)
Pulmonary Exam
Pulmonary Exam: lungs clear, no respiratory distress, no rales, no crackles and no rhonchi
Gastrointestinal Exam
Gastrointestinal Exam: non tender, soft and non distended
Neurological Exam
Neurological Exam: alert
Skin Exam
Skin Exam: normal color and warm/dry
Psychiatric Exam
Psychiatric Exam: normal mood/affect
Course
Orders/Labs/Results
Orders:
Orders
05/08/24 15:43
Electrocardiogram (*1) Urgent
Reason for Study: Shortness of Breath
EKG- Treatment ONCE
05/08/24 15:56
Cardiac Monitoring- Treatment ONCE
05/08/24 15:57
Complete Blood Count/With Diff Urgent
Comprehensive Metabolic Panel Urgent
Troponin I Urgent
05/08/24 16:14
D-Dimer Urgent
05/08/24 16:43
CT Chest PE Study Urgent
Comment:
Reason For Exam: SOB, elevated D-dimer
EKG- Treatment ONCE
05/08/24 18:45
Electrocardiogram (*1) Urgent
Reason for Study: Vertigo / Dizzy
05/08/24 18:53
Troponin I Urgent
Abnormal Lab Results
05/08/24 05/08/24
15:57 16:14
Absolute Neuts (auto) 6.8 H 10^3/uL
(1.4-6.5)
Absolute Monos (auto) 0.8 H 10^3/uL
(0.1-0.6)
Lymphocytes % 16.2 L %
(20.5-51.1)
D-Dimer 1.20 H ug/mlFEU
(0.00-0.50)
Glucose 170 H mg/dl
(70-99)
05/08/24 15:57
05/08/24 15:57
Vital Signs
Initial and Last Documented VS:
Initial Vital Signs
Temp Pulse Resp BP Pulse Ox
97.3 F 75 16 118/70 91
05/08/24 15:44 05/08/24 15:44 05/08/24 15:44 05/08/24 15:44 05/08/24 15:44
Last Documented Vital Signs
Temp Pulse Resp BP Pulse Ox
97.3 F 70 19 149/70 94
05/08/24 15:44 05/08/24 20:15 05/08/24 20:15 05/08/24 20:00 05/08/24 20:01
MDM/Problems Addressed
Differential Diagnosis Includes:
74yoF here after an episode of dizziness while ambulating with OT at his rehab facility. Symptoms occurred after having a BM. Apparently c/o neck pain radiating to back/arms at the time but he denies this currently. Oxygen saturation 88-92% on his
home 3L NC. He denies feeling SOB. Remainder of vitals are normal. He is well appearing in no distress. Differential diagnosis includes but is not limited to: vasovagal episode, orthostatic hypotension, ACS, arrhythmia, PE, doubt aortic dissection
given equal bilateral blood pressures and lack of current pain\\
Initial ED plan: Place on monitor car operator and check cardiac labs, D-dimer, and EKG.
*EKG
Interpreted by ED Provider?: Yes
EKG Intrepretation Date: 05/08/24
Heart Rate: 68
Rate: normal
Rhythm: sinus
Hewitt: normal axis
Interval: first degree heart block
QRS Pattern: normal QRS
Ischemia: no ischemia
*Critical Care Note
Total Time (30-74mins, 75-104mins- exclusive of procedures): Not Applicable
Update Note
Update Note:
EKG shows normal sinus rhythm without ischemic changes and troponin within normal limits. D-dimer elevated and CTA chest subsequently ordered. CT is negative for pulmonary embolism. Repeat EKG/troponin performed at 3 hours unchanged. Patient
remains asymptomatic on multiple reassessments and daughter states he is acting normally. No episodes of hypotension throughout ED stay. Oxygen saturation reading in the high 80s intermittently. Patient appears comfortable and continues to deny
dyspnea. Pulse oximeter moved to the ear and oxygen saturation improved to 92-94%. No indication for hospitalization at this time. Suspect vasovagal episode. Advised close PCP follow-up and ED return precautions discussed. Daughter in agreement
with plan and will transport patient back to his nursing facility.
ED Attending Note
-
Portions of this chart may have been created with voice recognition software.� Occasional wrong word or��sound alike� substitutions may have occurred due to the inherent limitations of voice recognition software.
Discharge Plan
Departure
Patient Disposition: Home (Routine Discharge)
Date of Disposition: 05/08/24
Time of Disposition: 19:46
Patient with high blood pressure during this ER visit?: Yes
Discharge Problem:
Episode of dizziness
Instructions: Dizziness
Prescriptions:
No Action
losartan 50 MG tablet
50 mg PO DAILY
allopurinol 100 MG tablet
100 mg PO DAILY
acetaminophen 325 mg Tablet
650 mg PO Q4HPRN MDD 3000 mg PRN (Reason: mild pain)
donepezil 10 mg Tablet
10 mg PO HS
quetiapine 100 mg Tablet
100 mg PO HS
escitalopram oxalate [Lexapro] 20 mg Tablet
20 mg PO DAILY
mometasone 0.1 % Cream
1 applic TOPICAL [id number] PRN (Reason: psoriasis)
vitamin B complex Capsule
2 cap PO DAILY
esomeprazole magnesium 20 mg Capsule,Delayed Release(Dr/Ec)
40 mg PO DAILY
albuterol sulfate 90 mcg/actuation HFA aerosol inhaler
2 puff inhalation R Q6HPRN PRN (Reason: shortness of breath or wheezing)
Visbiome 112.5 billion cell Capsule
1 cap PO DAILY Qty: 0 0RF
atorvastatin 20 mg Tablet
20 mg PO HS
trazodone 50 mg Tablet
50 mg PO HS
ondansetron HCl [Zofran] 4 mg Tablet
4 mg PO Q4HPRN PRN (Reason: NAUSEA/VOMITING)
aspirin 81 mg Tablet,Delayed Release (Dr/Ec)
81 mg PO DAILY
levothyroxine 50 mcg Tablet
50 mcg PO DAILY
ceramides 1,3,6-II [CeraVe] Cream
1 applic TOPICAL [id number] PRN (Reason: dryness)
Incruse Ellipta 62.5 mcg/actuation Blister With Device
1 inh INHALATION R DAILY
albuterol sulfate 2.5 mg /3 mL (0.083 %) solution for nebulization
2.5 mg inhalation R Q6HPRN PRN (Reason: shortness of breath or wheezing)
Referrals:
Balwinder Kumari, [Family Provider] -
Activity Restrictions/Additional Instructions:
Please follow-up with your family doctor on Saturday. Return to the ER with any new or worsening symptoms.
Interventions
Interventions:
*Risk Screen - Suicide Last Done: 05/08/24 15:52
*General Assessment Last Done: 05/08/24 15:52
*Neglect/Abuse Screening Last Done: 05/08/24 15:52
*ED- Fall Risk Assessment Last Done: 05/08/24 15:50
*ED COVID-19 Vaccine History Last Done: 05/08/24 15:50
*Nursing Disposition Last Done: 05/08/24 20:46
ED- Pulmonary Assessment Last Done: 05/08/24 15:52
ED- Cardiac Assessment Last Done: 05/08/24 15:52
Discharge Date and Time
Discharge Date/Time: 05/08/24 20:50
Print Language: KYRGYZ
[2024-05-08 16:14] LABS: % Basophils 0.3 % (0-2); % Eosinophils 1.5 % (0-6); % Immature Granulocytes 0.3 % (0-0.5); % Lymphocytes 16.2 % (20.5-51.1); % Monocytes 8.2 % (1.7-9.3); % Neutrophils 73.5 % (42.2-75.2); Absolute Eosinophils 0.1 10^3/uL (0-0.7); Absolute Lymphocytes 1.5 10^3/uL (1.2-3.4); Absolute Monocytes 0.8 10^3/uL (0.1-0.6); Absolute Neutrophils 6.8 10^3/uL (1.4-6.5); Hematocrit 43.9 % (39.0-52.0); Hemoglobin 14.7 g/dL (13.0-18.0); Mean Corp Hgb Conc. 33.5 g/dL (33.0-37.0); Mean Corpuscular Hgb 30.6 pg (27.0-31.0); Mean Corpuscular Volume 91.3 fL (80.0-94.0); Mean Platelet Volume 9.4 fL (7.4-10.4); Nucleated Red Blood Cells % 0 % (-); Platelet Count 222 10^3/uL (130-400); Red Blood Cell Count 4.81 10^6/uL (4.70-6.10); Red Cell Dist. Width 13.5 % (11.5-14.5); White Blood Cell Count 9.2 10^3/uL (4.8-10.8)
[2024-05-08 16:26] LABS: ALT (SGPT) 29 U/L (0-50); AST (SGOT) 32 U/L (17-59); Albumin 3.5 g/dl (3.5-5.0); Alkaline Phosphatase 85 U/L (38-126); Blood Urea Nitrogen 17 mg/dl (9-20); Carbon Dioxide 30 mmol/L (22-30); Chloride 102 mmol/L (98-107); Glucose 170 mg/dl (70-99); Potassium 4.5 mmol/L (3.5-5.1); Sodium 137 mmol/L (135-145); Total Bilirubin 0.6 mg/dl (0.2-1.3); Total Protein 6.4 g/dl (6.3-8.2); eGFR > 60.00
[2024-05-08 16:39] LABS: Troponin I < 0.012 ng/ml
[2024-05-08 18:03] VITALS: BP 142/73
[2024-05-08 19:00] VITALS: BP 147/71
--- NOTE | 2024-05-08 19:05 | EDRN ---
Report received, introduced myself to patient and daughter
[2024-05-08 19:35] LABS: Troponin I < 0.012 ng/ml
[2024-05-08 19:42] VITALS: BP 155/77
[2024-05-08 20:00] VITALS: BP 149/70
--- NOTE | 2024-05-08 20:00 | EDRN ---
inaccurate pulse ox pulled over of 86%, adjusted pulse ox and o2 sat is 94%
== END 2024-05-08 20:50 | disposition home or self-care (01) ==
LOC: EMR 15:40
PROVIDERS: Physician Assistant; EMERGENCY PHYSICIAN Emergency Medicine; FAMILY PHYSICIAN Internal Medicine
DX: R42 Dizziness and giddiness (principal); R06.02 Shortness of breath; E03.9 Hypothyroidism, unspecified; E78.00 Pure hypercholesterolemia, unspecified; F03.90 Unspecified dementia, unspecified severity, without behavioral disturbance, psychotic disturbance, mood disturbance, and anxiety; I10 Essential (primary) hypertension; I25.10 Atherosclerotic heart disease of native coronary artery without angina pectoris; Z87.891 Personal history of nicotine dependence
CPT/HCPCS: 99284; 71275; 80053; 84484; 85025; 85379; 93005; Q9967

== ENCOUNTER → 2024-07-15 11:29 | Outpatient (REF) | payer MEDICARE, OTHER, SELFPAY ==
[2024-07-15 12:31] LABS: % Basophils 0.4 % (0-2); % Immature Granulocytes 0.4 % (0-0.5); % Lymphocytes 21.9 % (20.5-51.1); % Monocytes 10.6 % (1.7-9.3); % Neutrophils 60.7 % (42.2-75.2); Absolute Eosinophils 0.5 10^3/uL (0-0.7); Absolute Lymphocytes 1.7 10^3/uL (1.2-3.4); Absolute Monocytes 0.8 10^3/uL (0.1-0.6); Absolute Neutrophils 4.8 10^3/uL (1.4-6.5); Hematocrit 41.8 % (39.0-52.0); Hemoglobin 14.1 g/dL (13.0-18.0); Mean Corp Hgb Conc. 33.7 g/dL (33.0-37.0); Mean Corpuscular Hgb 30.5 pg (27.0-31.0); Mean Corpuscular Volume 90.5 fL (80.0-94.0); Mean Platelet Volume 10.5 fL (7.4-10.4); Nucleated Red Blood Cells % 0 % (-); Platelet Count 181 10^3/uL (130-400); Red Blood Cell Count 4.62 10^6/uL (4.70-6.10); Red Cell Dist. Width 13.1 % (11.5-14.5)
== END ==
LOC: OLABPATH 11:29
PROVIDERS: ATTENDING PHYSICIAN Internal Medicine
DX: J96.11 Chronic respiratory failure with hypoxia (principal); N17.9 Acute kidney failure, unspecified
CPT/HCPCS: 36415; 85025

== ENCOUNTER → 2024-07-17 12:04 | Outpatient (REF) | payer MEDICARE, OTHER, SELFPAY ==
[2024-07-17 14:28] LABS: ALT (SGPT) 33 U/L (0-50); AST (SGOT) 35 U/L (17-59); Albumin 3.5 g/dl (3.5-5.0); Alkaline Phosphatase 96 U/L (38-126); Blood Urea Nitrogen 17 mg/dl (9-20); Carbon Dioxide 27 mmol/L (22-30); Chloride 107 mmol/L (98-107); Glucose 121 mg/dl (70-99); Potassium 4.8 mmol/L (3.5-5.1); Sodium 140 mmol/L (135-145); Total Bilirubin 0.3 mg/dl (0.2-1.3); Total Protein 6.8 g/dl (6.3-8.2); eGFR > 60.00
== END ==
LOC: OLABPATH 12:04
PROVIDERS: ATTENDING PHYSICIAN Internal Medicine
DX: J96.11 Chronic respiratory failure with hypoxia (principal)
CPT/HCPCS: 36415; 80053

== ENCOUNTER → 2024-08-12 10:18 | Outpatient (REF) | payer MEDICARE, OTHER, SELFPAY ==
[2024-08-12 11:38] LABS: Urine Albumin 2+ (Neg - Trace); Urine Bilirubin Negative (Negative); Urine Character Cloudy (Clear); Urine Color Yellow; Urine Glucose Negative (Negative); Urine Ketone Negative (Negative); Urine Leukocyte 3+ (Negative); Urine Nitrite Negative (Negative); Urine Occult Blood 1+ (Negative); Urine Urobilinogen 1+ (Neg - 1+)
[2024-08-12 11:51] LABS: Urine Calcium Oxalate Crystals Seen; Urine Squamous Cell 0-2 /LPF (Few)
[2024-08-12 12:00] LABS: Urine Bacteria Moderate (Negative); Urine White Cell >100 /HPF (0-5)
[2024-08-12 12:01] LABS: Urine Red Blood Cell 0-2 /HPF (0-2)
== END ==
LOC: OLABPATH 10:18
PROVIDERS: ATTENDING PHYSICIAN Internal Medicine
DX: N39.0 Urinary tract infection, site not specified (principal)
CPT/HCPCS: 81003; 81015; 87086

== ENCOUNTER → 2024-12-29 21:00 | Outpatient (REF) | payer MEDICARE, OTHER, SELFPAY ==
[2024-12-30 18:13] LABS: Urine Character Clear (Clear)
== END ==
LOC: OLABPATH 21:00
PROVIDERS: ATTENDING PHYSICIAN Internal Medicine
DX: N39.0 Urinary tract infection, site not specified (principal)
CPT/HCPCS: 81003; 81015; 87086